=== PATIENT | female | born 1975 | race Two or more races ===

== ENCOUNTER 2016-11-15 14:12 | Emergency (ER) | payer OTHER ==
[~2016-11-15] VITALS: Ht 165.1 cm; Wt 117.9 kg
[~2016-11-15 14:12] MED LIST: ACET325T9 PO; ALBU0.63 IH; AMLO10TA2 PO; AMOX1TAB11 PO; ATOR20TA PO; ATOR20TA58 PO; AZIT250T6 PO; Albuterol Sulfate NEB; BENZ100C PO; BUPR1PAT TD; CELE200C PO; CEPH-264 PO; CETI10TA16 PO; CLON0.5T3 PO; CYCL10TA2 PO; DIPH25CA3 PO; DIPH25CA58 PO; DIPH25TA26 PO; DIVA250T PO; DIVA500T17 PO; DULA0.75 SQ; ERGO500012 PO; FLUO40CA2 PO; FLUT16SP NS; FLUT1DIS3 IH; FURO-69 PO; GABA-586 PO; GABA800T2 PO; HYDR-2666 PO; HYDR-971 PO; ILOP6TAB2 PO; INSU100I17 SQ; INSU100V13 SQ; INSU100V5 IJ; IPRA15SP IH; IPRA4AER IH; Insulin Detemir SQ; KETO15CR TP; LANS30CA PO; LISI20TA PO; METF10002 PO; METF500T4 PO; METH750T2 PO; METO-269 PO; MONT10TA9 PO; MORP15TA3 PO; NYST1000 PO; OXYC-323 PO; OXYC15TA PO; OXYC5CAP3 PO; OXYC5TAB PO; POLY119P4 PO; POLY17PO3 PO; POLY255P PO; POTA20TA4 PO; PRED50TA PO; PROAIR HFA8.5 GM IH; PROAIR HFA8.5 GM INH; QUET100T PO; QUET300T PO; QUET300T6 PO; QUIN1TAB6 PO; RANI300C PO; RANI300T PO; SPIR50TA2 PO; Sulfamethoxazole/Trimethoprim PO; TIOT18CA IH; TRIA10.8 NS; TRIF5TAB PO; hydrocodone; symbicort
[2016-11-15] MEDS ORDERED: ACETAMINOPHEN 500 MG TABLET PO ONE (15:45)
[2016-11-15] MEDS ORDERED: DIPHENHYDRAMINE 50 MG/ML VIAL IVP ONE (15:45)
[2016-11-15] MEDS ORDERED: IV NORMAL SALINE 1000ML BAG 1,000 ML IV ONE (15:45)
--- NOTE | 2016-11-15 15:46 | PHYS DOC ---
Past Medical History Past Medical History: Anxiety, Asthma, Bipolar, Cancer, COPD, Depression, Diabetes-Type II, GERD, High Cholesterol, Hypertension, [place], Seizure, Schizophrenia, Other Additional Past Medical Histor: breast CA, ovarian/uterine CA, bone CA, spinal CA TREATED W/CHEMO & RADIATI Past Surgical History: Appendectomy, Cholecystectomy, , Hysterectomy, Tonsillectomy, Other Additional Past Surgical Histo: Bx lumpectomy, esphogeal dilation,BILAT LUMPECTOMY,HERNIA Alcohol Use: None Drug Use: Marijuana Adult General Chief Complaint Chief Complaint: SEIZURE HPI HPI Patient is a 41 year old female with history of psychogenic pseudoseizures present complaint after for "seizures" today. Each lasted less than 5 minutes. The patient says that she has been out of her Depakote for approximately 2 weeks. She complains of localized headache after the seizures, but denies any visual disturbances, motor weakness, sensory loss, fever, neck stiffness or pain , chest pain, shortness of breath, cough, nausea, vomiting, diarrhea, abdominal pain, dysuria, or flank pain. She does complain of hematuria. Review of Systems Review of Systems Constitutional: Denies fever or chills Eyes: Denies change in visual acuity, redness, or eye pain HENT: Denies nasal congestion or sore throat Respiratory: Denies cough or shortness of breath Cardiovascular: Denies chest pain GI: Denies abdominal pain, nausea, vomiting, bloody stools or diarrhea : Denies dysuria or flank pain. Reports hematuria. Musculoskeletal: Denies back pain or joint pain Integument: Denies rash or skin lesions Neurologic: Reports headache and four "seizures" today. Denies focal weakness or sensory changes. Current Medications Current Medications Current Medications Medications (Trade) Dose Ordered Sig/[facility] Start Time Stop Time Status Last Admin Dose Admin Acetaminophen (Tylenol) 1,000 mg 1X ONCE 11/15/16 15:45 11/15/16 15:46 DC 11/15/16 15:59 1,000 MG Diphenhydramine HCl 25 mg 25 mg 1X ONCE 11/15/16 15:45 11/15/16 15:46 DC 11/15/16 16:00 25 MG Sodium Chloride (Iv Sodium Chloride 0.9% 1000ml Bag) 1,000 ml @ 1,000 mls/hr 1X ONCE 11/15/16 15:45 11/15/16 16:44 11/15/16 15:57 1,000 MLS/HR Allergies Allergies Allergies Coded Allergies Type Severity Reaction Last Updated Verified adhesive Allergy Intermediate rash 10/26/16 Yes adhesive tape Allergy Intermediate Rash 10/26/16 Yes morphine Adverse Reaction Intermediate Itching 10/26/16 Yes Physical Exam Physical Exam Constitutional: Well developed, well nourished, no acute distress, non-toxic appearance. HENT: Normocephalic, atraumatic, bilateral external ears normal, oropharynx moist, no oral exudates, nose normal. Eyes: PERRLA, EOMI, conjunctiva normal, no discharge. Neck: Normal range of motion, no tenderness, supple, no stridor. Cardiovascular:Heart rate regular rhythm, no murmur Lungs & Thorax: Bilateral breath sounds clear to auscultation Abdomen: Bowel sounds normal, soft, no tenderness, no masses, no pulsatile masses. Skin: Warm, dry, no erythema, no rash. Back: Inspection. Extremities: No tenderness, no cyanosis, no clubbing, ROM intact, no edema. Left lower extremity in short leg cast. Neurologic: Alert and oriented X 3, normal motor function, normal sensory function, no focal deficits noted. Psychologic: Affect normal, judgement normal, mood normal. Current Patient Data Vital Signs Vital Signs Date Time Temp Pulse Resp B/P Pulse Ox O2 Delivery O2 Flow Rate FiO2 11/15/16 16:02 79 16 106/66 100 Nasal Cannula 3 11/15/16 14:20 98.6 98.6 Lab Values Laboratory Tests Test 11/15/16 14:15 Urine Collection Type Unknown Urine Color Yellow Urine Clarity Clear Urine pH 5.5 Urine Specific [place] 1.010 Urine Protein Negativemg/dL (NEG-TRACE) Urine Glucose (UA) 500mg/dL (NEG) Urine Ketones (Stick) Negativemg/dL (NEG) Urine Blood Negative (NEG) Urine Nitrite Negative (NEG) Urine Bilirubin Negative (NEG) Urine Urobilinogen Dipstick 0.2mg/dL (0.2 mg/dL) Urine Leukocyte Esterase Negative (NEG) Urine RBC Occ/HPF (0-2) Urine WBC 0/HPF (0-4) Urine Squamous Epithelial Cells Few/LPF Urine Bacteria Moderate/HPF (0-FEW) Urine Mucus Slight/LPF Urine Test Negative (NEG) EKG EKG [] Radiology/Procedures Radiology/Procedures [] Course & Med Decision Making Course & Med Decision Making Pertinent Labs and Imaging studies reviewed. (See chart for details) Patient has well-documented history of psychogenic seizures. She has been out of her Depakote for 2 weeks. I will refill this for her. Urinalysis is negative and urine is negative. She has no focal neurologic deficits and no other significant acute complaints. I gave her IV Reglan, fluids, Benadryl, and Tylenol for her headache. I recommended follow-up with Dr. Dempsey in clinic as an outpatient. Return precautions were discussed and all questions were answered prior to discharge. Most recent dosage of Depakote that I can find in her chart is 250 mg ER tabs, 1250 mg twice daily. Dragon Disclaimer Dragon Disclaimer This electronic medical record was generated, in whole or in part, using a voice recognition dictation system. Departure Departure Impression: Primary Impression: Seizure-like activity Additional Impression: Headache Disposition: 01 HOME, SELF-CARE Condition: STABLE Referrals: DERIAN TRINIDAD MD (PCP) Patient Instructions: General Headache Without Cause, Nonepileptic Seizures Additional Instructions: And lots of fluids and take Tylenol as needed for your headache. Refill your prescription for Depakote and take this as directed. Follow-up in clinic with Dr. Dempsey as soon as you can. Scripts Divalproex Sodium (Depakote Er)250 Mg Tab.er.24h5 Tab PO BID #150 TAB Ref 1 Prov:GERMAN OVALLE MD 11/15/16 Problem Qualifiers Additional Impression: Headache Headache type: unspecified Headache chronicity pattern: acute headache Intractability: not intractable Qualified Code: R51 - Headache GERMAN OVALLE MD Nov 15, 2016 15:44
[2016-11-15 15:55] LABS: BILIRUBIN,URINE NEGATIVE (NEG); GLUCOSE,URINE 500 mg/dL (NEG); NITRITE,URINE NEGATIVE (NEG); PH,URINE 5.5; PROTEIN,URINE NEGATIVE (NEG-TRACE); UROBILINOGEN,URINE 0.2 mg/dL (0.2 mg/dL)
[2016-11-15 15:57] LABS: NEG OBC UR NEG; POS OBC UR POS
[2016-11-15 16:06] LABS: BACTERIA,URINE MODERATE /HPF (0-FEW); RBC,URINE OCC /HPF (0-2); SQUAMOUS EPITHELIAL CELL,UR FEW /LPF; WBC,URINE 0 /HPF (0-4)
[2016-11-15] MEDS ORDERED: DIVA250T PO (16:14)
[2016-11-15 16:46] VITALS: BP 86/53
== END 2016-11-15 16:55 | disposition home or self-care (01) ==
LOC: ER 14:12
DX: R56.9 Unspecified convulsions (principal); R51 Headache; R31.9 Hematuria, unspecified; E11.9 Type 2 diabetes mellitus without complications; E78.00 Pure hypercholesterolemia, unspecified; F20.9 Schizophrenia, unspecified; I10 Essential (primary) hypertension; I25.2 Old myocardial infarction; J44.9 Chronic obstructive pulmonary disease, unspecified; K21.9 Gastro-esophageal reflux disease without esophagitis; F31.9 Bipolar disorder, unspecified; F41.9 Anxiety disorder, unspecified; F12.10 Cannabis abuse, uncomplicated; Z88.5 Allergy status to narcotic agent; Z90.49 Acquired absence of other specified parts of digestive tract; Z90.710 Acquired absence of both cervix and uterus; Z88.8 Allergy status to other drugs, medicaments and biological substances
CPT/HCPCS: 81001; 81025; 87086; 96361; 96374; 99284; J1200; J7030

== ENCOUNTER 2016-11-17 14:50 | Emergency (ER) | payer OTHER ==
[2016-11-17] MEDS ORDERED: IV NORMAL SALINE 1000ML BAG 1,000 ML IV ONE (15:30)
--- NOTE | 2016-11-17 15:33 | PHYS DOC ---
Past Medical History Past Medical History: Anxiety, Asthma, Bipolar, Cancer, COPD, Depression, Diabetes-Type II, GERD, High Cholesterol, Hypertension, [place], Seizure, Schizophrenia, Other Additional Past Medical Histor: breast CA, ovarian/uterine CA, bone CA, spinal CA TREATED W/CHEMO & RADIATI Past Surgical History: Appendectomy, Cholecystectomy, , Hysterectomy, Tonsillectomy, Other Additional Past Surgical Histo: Bx lumpectomy, esphogeal dilation,BILAT LUMPECTOMY,HERNIA Alcohol Use: None Drug Use: Marijuana Adult General Chief Complaint Chief Complaint: NEURO SYMPTOMS/DEFICITS HPI HPI 40-year-old female with history of morbid obesity, diabetes type 2 and pseudoseizures, who states she awoke today with some nausea, vomiting and headache as well as some mild right-sided weakness. Patient does state she should be on seizure meds but has not been taking them. Patient states she tried taking several Excedrin migraine tablets but did not get any relief. She states she has approximately 7 out of 10 pain to her headache and feels weaker than usual. She states she last had a seizure episode on Monday. She denies hitting her head with that episode. Review of Systems Review of Systems Constitutional: Denies fever or chills [] Eyes: Denies change in visual acuity, redness, or eye pain [] HENT: Denies nasal congestion or sore throat [] Respiratory: Denies cough or shortness of breath [] Cardiovascular: No additional information not addressed in HPI [] GI: Denies abdominal pain, has nausea, has vomiting, denies bloody stools, denies diarrhea [] : Denies dysuria or hematuria [] Musculoskeletal: Denies back pain or joint pain [] Integument: Denies rash or skin lesions [] Neurologic: Has headache, has focal weakness or sensory changes [] Endocrine: Denies polyuria or polydipsia [] Current Medications Current Medications Current Medications Medications (Trade) Dose Ordered Sig/[facility] Start Time Stop Time Status Last Admin Dose Admin Ketorolac Tromethamine (Toradol) 30 mg 1X ONCE 11/17/16 15:45 11/17/16 15:46 DC 11/17/16 16:10 30 MG Metoclopramide HCl (Reglan) 10 mg 1X ONCE 11/17/16 15:45 11/17/16 15:46 DC 11/17/16 16:10 10 MG Sodium Chloride (Iv Sodium Chloride 0.9% 1000ml Bag) 1,000 ml @ 1,000 mls/hr 1X ONCE 11/17/16 15:30 11/17/16 16:29 DC 11/17/16 16:11 1,000 MLS/HR Allergies Allergies Allergies Coded Allergies Type Severity Reaction Last Updated Verified adhesive Allergy Intermediate rash 10/26/16 Yes adhesive tape Allergy Intermediate Rash 10/26/16 Yes morphine Adverse Reaction Intermediate Itching 10/26/16 Yes Physical Exam Physical Exam Constitutional: Well developed, well nourished, no acute distress, non-toxic appearance. [] HENT: Normocephalic, atraumatic, bilateral external ears normal, oropharynx moist, no oral exudates, nose normal. [] Eyes: PERRLA, EOMI, conjunctiva normal, no discharge. [] Neck: Normal range of motion, no tenderness, supple, no stridor. [] Cardiovascular:Heart rate regular rhythm, no murmur [] Lungs & Thorax: Bilateral breath sounds clear to auscultation [] Abdomen: Bowel sounds normal, soft, no tenderness, no masses, no pulsatile masses. [] Skin: Warm, dry, no erythema, no rash. [] Back: No tenderness, no CVA tenderness. [] Extremities: No tenderness, no cyanosis, no clubbing, ROM intact, no edema. [] Neurologic: Alert and oriented X 3, normal motor function, right sided sensory deficit to the right lower extremity, no focal deficits noted. [] Psychologic: Affect normal, judgement normal, mood normal. [] Current Patient Data Vital Signs Vital Signs Date Time Temp Pulse Resp B/P Pulse Ox O2 Delivery O2 Flow Rate FiO2 11/17/16 17:15 81 16 128/75 98 Room Air 11/17/16 15:02 98.4 98.4 Lab Values Laboratory Tests Test 11/17/16 15:20 11/17/16 15:35 Urine Collection Type Unknown Urine Color Yellow Urine Clarity Clear Urine pH 5.5 Urine Specific [place] 1.010 Urine Protein Negativemg/dL (NEG-TRACE) Urine Glucose (UA) 250mg/dL (NEG) Urine Ketones (Stick) Negativemg/dL (NEG) Urine Blood Negative (NEG) Urine Nitrite Negative (NEG) Urine Bilirubin Negative (NEG) Urine Urobilinogen Dipstick 0.2mg/dL (0.2 mg/dL) Urine Leukocyte Esterase Negative (NEG) Urine RBC Rare/HPF (0-2) Urine WBC 1-4/HPF (0-4) Urine Squamous Epithelial Cells Many/LPF Urine Bacteria Many/HPF (0-FEW) Urine Mucus Mod/LPF Urine Test Negative (NEG) White Blood Count 19.2x10^3/uL (4.0-11.0) H Red Blood Count 4.85x10^6/uL (3.50-5.40) Hemoglobin 13.4g/dL (12.0-15.5) Hematocrit 41.8% (36.0-47.0) Mean Corpuscular Volume 86fL (79-100) Mean Corpuscular Hemoglobin 28pg (25-35) Mean Corpuscular Hemoglobin Concent 32g/dL (31-37) Red Cell Distribution Width 17.8% (11.5-14.5) H Platelet Count 363x10^3/uL (140-400) Neutrophils (%) (Auto) 71% (31-73) Lymphocytes (%) (Auto) 19% (24-48) L Monocytes (%) (Auto) 6% (0-9) Eosinophils (%) (Auto) 3% (0-3) Basophils (%) (Auto) 0% (0-3) Neutrophils # (Auto) 13.6x10^3uL (1.8-7.7) H Lymphocytes # (Auto) 3.7x10^3/uL (1.0-4.8) Monocytes # (Auto) 1.2x10^3/uL (0.0-1.1) H Eosinophils # (Auto) 0.7x10^3/uL (0.0-0.7) Basophils # (Auto) 0.1x10^3/uL (0.0-0.2) Segmented Neutrophils % 66% (35-66) Lymphocytes % 29% (24-48) Monocytes % 3% (0-10) Eosinophils % 2% (0-5) Platelet Estimate Adequate (ADEQUATE) Anisocytosis Slight Sodium Level 139mmol/L (136-145) Potassium Level 4.5mmol/L (3.5-5.1) Chloride Level 103mmol/L (98-107) Carbon Dioxide Level 27mmol/L (21-32) Anion Gap 9 (6-14) Blood Urea Nitrogen 25mg/dL (7-20) H Creatinine 1.5mg/dL (0.6-1.0) H Estimated GFR (Cockcroft-Gault) 37.9 Glucose Level 89mg/dL (70-99) Calcium Level 9.6mg/dL (8.5-10.1) Laboratory Tests 11/17/16 15:35 Laboratory Tests 11/17/16 15:35 EKG EKG EKG as interpreted by me reveals a sinus rhythm with a leftward axis. There is a approximate rate of 87 bpm. Intervals are normal. There are no acute ischemic findings. Radiology/Procedures Radiology/Procedures CT of the head without contrast demonstrates the following: Indication right-sided tingling and headache. Noncontrast images of the head were obtained and are compared to an examination 09/28/2016. The calvarium appears unremarkable. The visualized paranasal sinuses appear unremarkable. There is no subdural or epidural hematoma. No mass or midline shift is seen. No hemorrhage is apparent. Acute intracranial finding is not seen. Course & Med Decision Making Course & Med Decision Making Pertinent Labs and Imaging studies reviewed. (See chart for details) 41-year-old female with subjective weakness and migraine type headache that will receive IV and migraine cocktail as well as laboratory workup including a head CT. After reviewing her chart, it does not appear that she has an actual seizure disorder and apparently has been worked up for her seizures in the past. She does states she's supposed to be on seizure medications but is not currently taking them. Upon my reassessment, the patient is resting quietly in the room in no signs of distress after IV migraine cocktail. She does have a slightly elevated white count of 19 but no other specific findings on laboratory workup. This is a nonspecific finding. Her urine does not show any signs of infection. CT of her head was also negative. I counseled the patient that she is likely having a severe migraine episode and that I will be providing her nausea and pain meds to go home with and that she is to follow closely with her primary care doctor next several days for symptom resolution and to return to the ER if her headache should worsen in any way or if she develops any worsening of her symptoms. She is very agreeable with this plan will be discharged feeling much improved. Mirtha Disclaimer Mirtha Disclaimer This electronic medical record was generated, in whole or in part, using a voice recognition dictation system. Departure Departure Impression: Primary Impression: Migraine Additional Impression: Nausea Disposition: 01 HOME, SELF-CARE Condition: IMPROVED Referrals: DERIAN TRINIDAD MD (PCP) Patient Instructions: Migraine Headache, [id number] Additional Instructions: Please take your pain medication as needed for your headache. Remain in a quiet dark room for the next 24 hours and drink plenty of fluids. Follow up with Dr. Trinidad as discussed in the next 1-2 days. Return to the ER if you develop any worsening of your symptoms. Scripts Ondansetron Hcl (Zofran)4 Mg Tablet4 Mg PO BID PRN NAUSEA/VOMITING #10 TAB Prov:SANTA BARBOSA DO 11/17/16 Hydrocodone/Apap 5-325 ([place] 5-325 Tablet)1 Each Tablet1 Tab PO PRN Q6HRS PRN PAIN #10 TAB Prov:SANTA BARBOSA DO 11/17/16 Problem Qualifiers SANTA BARBOSA DO Nov 17, 2016 15:33
--- NOTE | 2016-11-17 15:35 | EKG ---
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
[2016-11-17] MEDS ORDERED: METOCLOPRAMIDE HCL 10 MG/2 ML VIAL. IV ONE (15:45)
[2016-11-17] MEDS ORDERED: KETOROLAC TROMETHAMINE 30 MG/ML SYRINGE. IV ONE (15:45)
[2016-11-17 15:52] LABS: BILIRUBIN,URINE NEGATIVE (NEG); GLUCOSE,URINE 250 mg/dL (NEG); NITRITE,URINE NEGATIVE (NEG); PH,URINE 5.5; PROTEIN,URINE NEGATIVE (NEG-TRACE); UROBILINOGEN,URINE 0.2 mg/dL (0.2 mg/dL)
[2016-11-17 15:54] LABS: BASO # 0.1 x10^3/uL (0.0-0.2); BASO % 0 % (0-3); EOS % 3 % (0-3); HEMATOCRIT 41.8 % (36.0-47.0); HEMOGLOBIN 13.4 g/dL (12.0-15.5); LYMPH # 3.7 x10^3/uL (1.0-4.8); LYMPH % 19 % (24-48); MEAN CORPUSCULAR HEMOGLOBIN 28 pg (25-35); MEAN CORPUSCULAR HGB CONC 32 g/dL (31-37); MEAN CORPUSCULAR VOLUME 86 fL (79-100); MONO % 6 % (0-9); NEUT % 71 % (31-73); PLATELET COUNT 363 x10^3/uL (140-400); RED BLOOD COUNT 4.85 x10^6/uL (3.50-5.40); RED CELL DISTRIBUTION WIDTH 17.8 % (11.5-14.5); WHITE BLOOD COUNT 19.2 x10^3/uL (4.0-11.0)
[2016-11-17 15:55] LABS: NEG OBC UR NEG; POS OBC UR POS
[2016-11-17 16:01] LABS: BACTERIA,URINE MANY /HPF (0-FEW); RBC,URINE RARE /HPF (0-2); SQUAMOUS EPITHELIAL CELL,UR MANY /LPF
[2016-11-17 16:03] LABS: CALCIUM 9.6 mg/dL (8.5-10.1); CREATININE 1.5 mg/dL (0.6-1.0); GFR 37.9; POTASSIUM 4.5 mmol/L (3.5-5.1)
--- NOTE | 2016-11-17 16:08 | RAD ---
Indication right-sided tingling and headache. Noncontrast images of the head were obtained and are compared to an examination 09/28/2016. The calvarium appears unremarkable. The visualized paranasal sinuses appear unremarkable. There is no subdural or epidural hematoma. No mass or midline shift is seen. No hemorrhage is apparent. Acute intracranial finding is not seen. IMPRESSION: No acute intracranial abnormality is seen PQRS Compliance Statement: One or more of the following individualized dose reduction techniques were utilized for this examination: 1. Automated exposure control 2. Adjustment of the mA and/or kV according to patient size 3. Use of iterative reconstruction technique
[2016-11-17 16:12] LABS: % EOS 2 % (0-5)
[2016-11-17 16:14] LABS: ANISOCYTOSIS SLIGHT; PLT ESTIMATE ADEQUATE (ADEQUATE)
[2016-11-17] MEDS ORDERED: ONDA4TAB7 PO (17:09)
[2016-11-17] MEDS ORDERED: HYDR-971 PO (17:09)
[2016-11-17 17:15] VITALS: BP 128/75
== END 2016-11-17 17:20 | disposition home or self-care (01) ==
LOC: ER 14:50
DX: G43.909 Migraine, unspecified, not intractable, without status migrainosus (principal); E66.01 Morbid (severe) obesity due to excess calories; E11.9 Type 2 diabetes mellitus without complications; F41.9 Anxiety disorder, unspecified; J45.909 Unspecified asthma, uncomplicated; F31.9 Bipolar disorder, unspecified; J44.9 Chronic obstructive pulmonary disease, unspecified; K21.9 Gastro-esophageal reflux disease without esophagitis; E78.00 Pure hypercholesterolemia, unspecified; I25.2 Old myocardial infarction; I10 Essential (primary) hypertension; F20.9 Schizophrenia, unspecified; F12.10 Cannabis abuse, uncomplicated; Z91.048 Other nonmedicinal substance allergy status; Z88.5 Allergy status to narcotic agent; Z79.899 Other long term (current) drug therapy
CPT/HCPCS: 36415; 70450; 80048; 81001; 81025; 85007; 85027; 87086; 93005; 96361; 96374; 96375; 99285; J1885; J2765; J7030

== ENCOUNTER → 2016-12-09 | Day surgery (SDC) | payer OTHER ==
[~2016-12-09] MED LIST changes: +FENTANYL PF 100 MCG/2 ML VIAL. IV PRN; +IV RINGERS,LACTATED 1000ML 1,000 ML IV SCH; +LIDOCAINE 1% 1 ML SYRINGE. ID PRN; +LIDOCAINE 2% PF Vial for OR 5 ML VIAL. ONE; +ONDA4TAB7 PO; +ONDANSETRON PF 4 MG/2 ML VIAL. IV PRN; +PROCHLORPERAZINE 10 MG/2 ML VIAL. IV PRN; +PROPOFOL 20 ML IV ONE
[2016-12-09 09:35] VITALS: BP 127/93
--- NOTE | 2016-12-10 20:20 | CONS ---
DATE OF CONSULTATION: 12/09/2016 HISTORY: This is a 41-year-old female with past medical history significant for type 2 diabetes mellitus, COPD, breast cancer, hypertension, colonic polyps, gastric ulcers, is seen for surveillance of her gastric ulcer as well as repeat dilatation of her Schatzki's ring for dysphagia. She has been on Prilosec and Zantac. Her NSAIDs have been stopped, stomach is feeling better. She is otherwise without additional complaints. PAST MEDICAL HISTORY: Significant for breast cancer, COPD, sleep apnea, dysphagia, hypertension, colon polyps, hyperlipidemia, status post ID, pseudoseizures. ALLERGIES: MORPHINE. MEDICATIONS: Please review the database as she has over 20. FAMILY AND SOCIAL HISTORY: She does not drink or smoke at this time. Family history is significant for diabetes, breast cancer, hypertension. REVIEW OF SYSTEMS: Per records. PHYSICAL EXAMINATION: GENERAL: Reveals a well-nourished, well-developed female. VITAL SIGNS: Temperature is 97, pulse 111, respirations 20. HEENT: Normocephalic and atraumatic head. Pupils and extraocular muscles not tested. Sclerae anicteric. NECK: Supple. LUNGS: Clear. CARDIOVASCULAR: Reveals S1, S2 without S3, S4 or appreciable murmur. ABDOMEN: Soft abdomen, normal bowel sounds, without appreciable hepatosplenomegaly. EXTREMITIES: Reveals no cyanosis, clubbing or edema. IMPRESSION: 1. Gastric ulcer. Surveillance exam was recommended to confirm healing, 2-4% gastric ulcers are early malignancies. 2. Dysphagia, most likely it is multifactorial in etiology with dysmotility, possible connective tissue disorder such as lupus which runs in her family as well with a Schatzki's ring in the differential. Recommend the patient have repeat dilatation. CC: Medical records. SANTA FAULKNER MD DR: JOSE/slade JOB#: [id number] / [id number] SANTA Obrien MD
== END ==
LOC: SURG 08:28
PROVIDERS: ATTEND Internal Medicine Gastroenterology
DX: K22.2 Esophageal obstruction (principal); K29.50 Unspecified chronic gastritis without bleeding; J44.9 Chronic obstructive pulmonary disease, unspecified; Z85.3 Personal history of malignant neoplasm of breast; I10 Essential (primary) hypertension; E78.5 Hyperlipidemia, unspecified; E78.00 Pure hypercholesterolemia, unspecified; E66.9 Obesity, unspecified; M19.90 Unspecified osteoarthritis, unspecified site; Z90.710 Acquired absence of both cervix and uterus
CPT/HCPCS: 36415; 43235; 43450; 82947; J2704

== ENCOUNTER → 2017-01-20 | Emergency (ER) | payer OTHER ==
[~2017-01-20] MED LIST changes: +CONTRAST GIVEN MC PRN; +FAMOTIDINE 20 MG/2 ML VIAL IVP ONE; +FENTANYL PF 100 MCG/2 ML VIAL. IV ONE; -FENTANYL PF 100 MCG/2 ML VIAL. IV PRN; +IOHEXOL 300 MG/ML 75 ML VIAL IV ONE; +IV NORMAL SALINE 1000ML BAG 1,000 ML IV ONE; -IV RINGERS,LACTATED 1000ML 1,000 ML IV SCH; -LIDOCAINE 1% 1 ML SYRINGE. ID PRN; -LIDOCAINE 2% PF Vial for OR 5 ML VIAL. ONE; +ONDANSETRON PF 4 MG/2 ML VIAL. IV ONE; -ONDANSETRON PF 4 MG/2 ML VIAL. IV PRN; -PROCHLORPERAZINE 10 MG/2 ML VIAL. IV PRN; -PROPOFOL 20 ML IV ONE
[2017-01-20 16:20] VITALS: BP 109/71
[2017-01-20 17:17] LABS: BASO # 0.2 x10^3/uL (0.0-0.2); BASO % 1 % (0-3); EOS % 8 % (0-3); HEMATOCRIT 41.6 % (36.0-47.0); HEMOGLOBIN 13.7 g/dL (12.0-15.5); LYMPH # 3.9 x10^3/uL (1.0-4.8); LYMPH % 19 % (24-48); MEAN CORPUSCULAR HEMOGLOBIN 29 pg (25-35); MEAN CORPUSCULAR HGB CONC 33 g/dL (31-37); MEAN CORPUSCULAR VOLUME 87 fL (79-100); MONO % 6 % (0-9); NEUT % 67 % (31-73); PLATELET COUNT 367 x10^3/uL (140-400); RED BLOOD COUNT 4.79 x10^6/uL (3.50-5.40); RED CELL DISTRIBUTION WIDTH 13.8 % (11.5-14.5); WHITE BLOOD COUNT 20.8 x10^3/uL (4.0-11.0)
[2017-01-20 17:36] LABS: BILIRUBIN,URINE NEGATIVE (NEG); GLUCOSE,URINE >=1000 mg/dL (NEG); NITRITE,URINE NEGATIVE (NEG); PROTEIN,URINE NEGATIVE (NEG-TRACE); UROBILINOGEN,URINE 0.2 mg/dL (0.2 mg/dL)
[2017-01-20 17:46] LABS: RBC,URINE 0 /HPF (0-2); WBC,URINE OCC /HPF (0-4)
[2017-01-20 17:47] LABS: BACTERIA,URINE MANY /HPF (0-FEW); SQUAMOUS EPITHELIAL CELL,UR MANY /LPF
[2017-01-20 18:01] LABS: CALCIUM 9.4 mg/dL (8.5-10.1); CREATININE 1.3 mg/dL (0.6-1.0); GFR 44.7; POTASSIUM 4.7 mmol/L (3.5-5.1)
[2017-01-20 18:08] LABS: ALBUMIN 3.7 g/dL (3.4-5.0); ALBUMIN/GLOBULIN RATIO 1.1 (1.0-1.7); TOTAL BILIRUBIN 0.2 mg/dL (0.2-1.0); TOTAL PROTEIN 7.2 g/dL (6.4-8.2)
[2017-01-20 18:15] LABS: % EOS 4 % (0-5)
[2017-01-20 18:17] LABS: PLT ESTIMATE ADEQUATE (ADEQUATE)
--- NOTE | 2017-01-20 19:56 | PHYS DOC ---
Past Medical History Past Medical History: Anxiety, Asthma, Bipolar, Cancer, COPD, Depression, Diabetes-Type II, GERD, High Cholesterol, Hypertension, [place], Seizure, Schizophrenia, Other Additional Past Medical Histor: breast CA, ovarian/uterine CA, bone CA, spinal CA TREATED W/CHEMO & RADIATI Past Surgical History: Appendectomy, Cholecystectomy, , Hysterectomy, Tonsillectomy, Other Additional Past Surgical Histo: Bx lumpectomy, esphogeal dilation,BILAT LUMPECTOMY,HERNIA Alcohol Use: None Drug Use: Marijuana Adult General Chief Complaint Chief Complaint: ABDOMINAL PAIN HPI HPI Patient is a 41 year old female with a history of asthma, anemia, bipolar, diabetes type 2, depression, breast cancer, stomach ulcer, abdominal surgery, who presents today complaining of moderate right upper and lower abdominal pain that began this morning with nausea and vomiting. Patient denies any urgency frequency dysuria. Patient denies any fever. Patient is requesting pain medicine as soon as possible. Review of Systems Review of Systems Constitutional: See history of present illness Eyes: Denies change in visual acuity, redness, or eye pain [] HENT: Denies nasal congestion or sore throat [] Respiratory: Denies cough or shortness of breath [] Cardiovascular: No additional information not addressed in HPI [] GI: Right sided abdominal pain with nausea and vomiting : See history of present illness Musculoskeletal: Denies back pain or joint pain [] Integument: Denies rash or skin lesions [] Neurologic: Denies headache, focal weakness or sensory changes [] Endocrine: Denies polyuria or polydipsia [] Current Medications Current Medications Current Medications Medications (Trade) Dose Ordered Sig/[facility] Start Time Stop Time Status Last Admin Dose Admin Famotidine (Pepcid) 20 mg 1X ONCE 01/20/17 17:15 01/20/17 17:16 DC 01/20/17 17:21 20 MG Fentanyl Citrate (Fentanyl 2ml Vial) 50 mcg 1X ONCE 01/20/17 17:15 01/20/17 17:16 DC 01/20/17 17:20 50 MCG Info 1 each 1 each PRN DAILY PRN 01/20/17 18:00 01/22/17 17:59 Iohexol (Omnipaque 300 Mg/ml) 75 ml 1X ONCE 01/20/17 18:00 01/20/17 18:01 DC Ondansetron HCl (Zofran) 4 mg 1X ONCE 01/20/17 17:15 01/20/17 17:16 DC 01/20/17 17:20 4 MG Sodium Chloride (Iv Sodium Chloride 0.9% 1000ml Bag) 1,000 ml @ 1,000 mls/hr 1X ONCE 01/20/17 18:30 01/20/17 19:29 DC Allergies Allergies Allergies Coded Allergies Type Severity Reaction Last Updated Verified adhesive Allergy Intermediate rash 12/09/16 Yes adhesive tape Allergy Intermediate Rash 12/09/16 Yes morphine Adverse Reaction Intermediate Itching 12/09/16 Yes Physical Exam Physical Exam Constitutional: Well developed, well nourished, no acute distress, non-toxic appearance. [] HENT: Normocephalic, atraumatic, bilateral external ears normal, oropharynx moist, no oral exudates, nose normal. [] Eyes: PERRLA, EOMI, conjunctiva normal, no discharge. [] Neck: Normal range of motion, no tenderness, supple, no stridor. [] Cardiovascular:Heart rate regular rhythm, no murmur [] Lungs & Thorax: Bilateral breath sounds clear to auscultation [] Abdomen: Rounded abdomen, old healed surgical incision noted midline upper abdomen. Bowel sounds normal, soft, no masses, no pulsatile masses. Patient would not let me push on her stomach, she states is painful. She is refusing most of the exam stating it's painful. Skin: Warm, dry, no erythema, no rash. [] Back: No tenderness, no CVA tenderness. [] Extremities: No tenderness, no cyanosis, no clubbing, ROM intact, no edema. [] Neurologic: Alert and oriented X 3, normal motor function, normal sensory function, no focal deficits noted. [] Psychologic: Affect normal, judgement normal, mood normal. [] Current Patient Data Vital Signs Vital Signs Date Time Temp Pulse Resp B/P Pulse Ox O2 Delivery O2 Flow Rate FiO2 01/20/17 17:20 20 95 Room Air 01/20/17 16:20 98.4 96 109/71 98.4 Lab Values Laboratory Tests Test 01/20/17 17:00 01/20/17 17:25 01/20/17 17:40 White Blood Count 20.8x10^3/uL (4.0-11.0) H Red Blood Count 4.79x10^6/uL (3.50-5.40) Hemoglobin 13.7g/dL (12.0-15.5) Hematocrit 41.6% (36.0-47.0) Mean Corpuscular Volume 87fL (79-100) Mean Corpuscular Hemoglobin 29pg (25-35) Mean Corpuscular Hemoglobin Concent 33g/dL (31-37) Red Cell Distribution Width 13.8% (11.5-14.5) Platelet Count 367x10^3/uL (140-400) Neutrophils (%) (Auto) 67% (31-73) Lymphocytes (%) (Auto) 19% (24-48) L Monocytes (%) (Auto) 6% (0-9) Eosinophils (%) (Auto) 8% (0-3) H Basophils (%) (Auto) 1% (0-3) Neutrophils # (Auto) 14.0x10^3uL (1.8-7.7) H Lymphocytes # (Auto) 3.9x10^3/uL (1.0-4.8) Monocytes # (Auto) 1.2x10^3/uL (0.0-1.1) H Eosinophils # (Auto) 1.6x10^3/uL (0.0-0.7) H Basophils # (Auto) 0.2x10^3/uL (0.0-0.2) Segmented Neutrophils % 66% (35-66) Band Neutrophils % 4% (0-9) Lymphocytes % 25% (24-48) Monocytes % 1% (0-10) Eosinophils % 4% (0-5) Platelet Estimate Adequate (ADEQUATE) Urine Collection Type Unknown Urine Color Yellow Urine Clarity Clear Urine pH 6.0 Urine Specific Leary 1.015 Urine Protein Negativemg/dL (NEG-TRACE) Urine Glucose (UA) >=1000mg/dL (NEG) Urine Ketones (Stick) Negativemg/dL (NEG) Urine Blood Negative (NEG) Urine Nitrite Negative (NEG) Urine Bilirubin Negative (NEG) Urine Urobilinogen Dipstick 0.2mg/dL (0.2 mg/dL) Urine Leukocyte Esterase Negative (NEG) Urine RBC 0/HPF (0-2) Urine WBC Occ/HPF (0-4) Urine Squamous Epithelial Cells Many/LPF Urine Bacteria Many/HPF (0-FEW) Sodium Level 135mmol/L (136-145) L Potassium Level 4.7mmol/L (3.5-5.1) Chloride Level 102mmol/L (98-107) Carbon Dioxide Level 23mmol/L (21-32) Anion Gap 10 (6-14) Blood Urea Nitrogen 16mg/dL (7-20) Creatinine 1.3mg/dL (0.6-1.0) H Estimated GFR (Cockcroft-Gault) 44.7 BUN/Creatinine Ratio 12 (6-20) Glucose Level 104mg/dL (70-99) H Calcium Level 9.4mg/dL (8.5-10.1) Total Bilirubin 0.2mg/dL (0.2-1.0) Aspartate Amino Transferase (AST) 9U/L (15-37) L Alanine Aminotransferase (ALT) 21U/L (14-59) Alkaline Phosphatase 90U/L (46-116) Total Protein 7.2g/dL (6.4-8.2) Albumin 3.7g/dL (3.4-5.0) Albumin/Globulin Ratio 1.1 (1.0-1.7) Lipase 137U/L (73-393) Laboratory Tests 01/20/17 17:00 Laboratory Tests 01/20/17 17:40 EKG EKG [] Radiology/Procedures Radiology/Procedures [] Course & Med Decision Making Course & Med Decision Making Pertinent Labs and Imaging studies reviewed. (See chart for details) Patient is in the ED complaining of right upper and lower abdominal pain with nausea vomiting. We ordered labs and CT of the abdomen and pelvic. The nurses called me and told me patient signed out AMA after receiving pain medicine. Dragon Disclaimer Dragon Disclaimer This electronic medical record was generated, in whole or in part, using a voice recognition dictation system. Departure Departure Impression: Primary Impression: Left against medical advice Additional Impression: Abdominal pain Disposition: 07 AGAINST MEDICAL ADVICE Condition: STABLE Problem Qualifiers Additional Impression: Abdominal pain Abdominal location: right lower quadrant Qualified Code: R10.31 - Right lower quadrant pain CADY HERNANDEZ SOCORRO Jan 20, 2017 19:56
== END ==
LOC: ER 15:48
DX: R10.31 Right lower quadrant pain (principal); R11.2 Nausea with vomiting, unspecified; R10.11 Right upper quadrant pain; F41.9 Anxiety disorder, unspecified; J45.909 Unspecified asthma, uncomplicated; F31.9 Bipolar disorder, unspecified; J44.9 Chronic obstructive pulmonary disease, unspecified; E11.9 Type 2 diabetes mellitus without complications; K21.9 Gastro-esophageal reflux disease without esophagitis; E78.00 Pure hypercholesterolemia, unspecified; I10 Essential (primary) hypertension; I25.2 Old myocardial infarction; F12.10 Cannabis abuse, uncomplicated; F20.9 Schizophrenia, unspecified; Z90.49 Acquired absence of other specified parts of digestive tract; Z90.710 Acquired absence of both cervix and uterus; Z91.048 Other nonmedicinal substance allergy status; Z88.5 Allergy status to narcotic agent
CPT/HCPCS: 36415; 80053; 81001; 83690; 85007; 85027; 87086; 96374; 96375; 99284; J2405; J3010; S0028

== ENCOUNTER 2017-02-02 12:18 | Emergency (ER) | payer OTHER ==
[~2017-02-02] VITALS: Ht 162.6 cm; Wt 121.6 kg
[~2017-02-02 12:18] MED LIST changes: -CONTRAST GIVEN MC PRN; -FAMOTIDINE 20 MG/2 ML VIAL IVP ONE; -FENTANYL PF 100 MCG/2 ML VIAL. IV ONE; -IOHEXOL 300 MG/ML 75 ML VIAL IV ONE; -IV NORMAL SALINE 1000ML BAG 1,000 ML IV ONE; -ONDANSETRON PF 4 MG/2 ML VIAL. IV ONE
[2017-02-02 13:20] VITALS: BP 144/77
[2017-02-02] MEDS ORDERED: SULF1TAB24 PO (13:44)
[2017-02-02] MEDS ORDERED: CEPH500C PO (13:44)
[2017-02-02] MEDS ORDERED: HYDR-971 PO (13:44)
--- NOTE | 2017-02-02 13:44 | PHYS DOC ---
Past Medical History Past Medical History: Anxiety, Asthma, Bipolar, Cancer, COPD, Depression, Diabetes-Type II, GERD, High Cholesterol, Hypertension, [place], Seizure, Schizophrenia, Other Additional Past Medical Histor: breast CA, ovarian/uterine CA, bone CA, spinal CA TREATED W/CHEMO & RADIATI Past Surgical History: Appendectomy, Cholecystectomy, , Hysterectomy, Tonsillectomy, Other Additional Past Surgical Histo: Bx lumpectomy, esphogeal dilation,BILAT LUMPECTOMY,HERNIA Alcohol Use: None Drug Use: Marijuana Adult General Chief Complaint Chief Complaint: SKIN PROBLEM HPI HPI Patient is a 41 year old female presents emergency Department today with complaint of atraumatic left ear pain and swelling with redness that she woke up to this morning. Patient has symptoms that she was bitten or stung by some type of an insect. She denies any recent piercings or tattoos. She denies history of recurrent skin infections. She denies antibiotic use in the past 90 days. Review of Systems Review of Systems Constitutional: Denies fever or chills [] Eyes: Denies change in visual acuity, redness, or eye pain [] HENT: Denies nasal congestion or sore throat [] Respiratory: Denies cough or shortness of breath [] Cardiovascular: No additional information not addressed in HPI [] GI: Denies abdominal pain, nausea, vomiting, bloody stools or diarrhea [] : Denies dysuria or hematuria [] Musculoskeletal: Denies back pain or joint pain [] Integument: Denies rash or skin lesions [] Neurologic: Denies headache, focal weakness or sensory changes [] Endocrine: Denies polyuria or polydipsia [] Allergies Allergies Allergies Coded Allergies Type Severity Reaction Last Updated Verified adhesive Allergy Intermediate rash 12/09/16 Yes adhesive tape Allergy Intermediate Rash 12/09/16 Yes morphine Adverse Reaction Intermediate Itching 12/09/16 Yes Physical Exam Physical Exam Constitutional: Well developed, well nourished, no acute distress, non-toxic appearance. [] HENT: Normocephalic, atraumatic, oropharynx moist, no oral exudates, nose normal. Left ear lobe is inflamed and swollen. It is warm to the touch. There is no fluctuant pocket, purulent drainage or honey crusted lesions. Patient's ear canal is not occluded. There is no evidence of mastoiditis. Eyes: PERRLA, EOMI, conjunctiva normal, no discharge. [] Neck: Normal range of motion, no tenderness, supple, no stridor. [] Cardiovascular:Heart rate regular rhythm, no murmur [] Lungs & Thorax: Bilateral breath sounds clear to auscultation [] Abdomen: Bowel sounds normal, soft, no tenderness, no masses, no pulsatile masses. [] Skin: Warm, dry, no erythema, no rash. [] Back: No tenderness, no CVA tenderness. [] Extremities: No tenderness, no cyanosis, no clubbing, ROM intact, no edema. [] Neurologic: Alert and oriented X 3, normal motor function, normal sensory function, no focal deficits noted. [] Psychologic: Affect normal, judgement normal, mood normal. [] Current Patient Data Vital Signs Vital Signs Date Time Temp Pulse Resp B/P Pulse Ox O2 Delivery O2 Flow Rate FiO2 02/02/17 13:20 98.3 110 17 98 Room Air 98.3 EKG EKG [] Radiology/Procedures Radiology/Procedures [] Course & Med Decision Making Course & Med Decision Making Pertinent Labs and Imaging studies reviewed. (See chart for details) [] Dragon Disclaimer Dragon Disclaimer This electronic medical record was generated, in whole or in part, using a voice recognition dictation system. Departure Departure Impression: Primary Impression: Cellulitis Disposition: 01 HOME, SELF-CARE Condition: GOOD Referrals: DERIAN TRINIDAD MD (PCP) Patient Instructions: Cellulitis, [id number] Additional Instructions: 1. Take the medications as prescribed. 2. Review the discharge instructions provided for self-care and reasons to return to the emergency department. 3. Contact Dr. Trinidad office today to schedule follow-up appointment for reevaluation by Monday at the latest. Scripts Hydrocodone/Apap 5-325 ([place] 5-325 Tablet)1 Each Tablet1 Tab PO PRN Q6HRS PRN PAIN #10 TAB Ref 0 Prov:NILS LUNDBERG 02/02/17 Cephalexin 500 Mg Capsule2 Cap PO BID #28 CAP Prov:NILS LUNDBERG 02/02/17 Sulfamethoxazole/Trimethoprim (Bactrim Ds Tablet)1 Each Tablet1 Each PO BID cellulitis 10 Days Prov:NILS LUNDBERG 02/02/17 NILS LUNDBERG Feb 02, 2017 13:44
== END 2017-02-02 13:50 | disposition home or self-care (01) ==
LOC: ER 12:18
DX: H60.12 Cellulitis of left external ear (principal); F41.9 Anxiety disorder, unspecified; J45.909 Unspecified asthma, uncomplicated; F31.9 Bipolar disorder, unspecified; J44.9 Chronic obstructive pulmonary disease, unspecified; E11.9 Type 2 diabetes mellitus without complications; K21.9 Gastro-esophageal reflux disease without esophagitis; E78.00 Pure hypercholesterolemia, unspecified; I10 Essential (primary) hypertension; I25.2 Old myocardial infarction; F20.9 Schizophrenia, unspecified; Z91.048 Other nonmedicinal substance allergy status; Z88.5 Allergy status to narcotic agent
CPT/HCPCS: 99283

== ENCOUNTER → 2017-02-09 | Day surgery (SDC) | payer OTHER ==
[~2017-02-09] MED LIST changes: +CELE-20 PO; +CEPH500C PO; +CLIN300C86 PO; +IV RINGERS,LACTATED 1000ML 1,000 ML IV SCH; +LIDOCAINE 2% PF Vial for OR 5 ML VIAL. ONE; +PRAZ5CAP2 PO; +PROPOFOL 20 ML IV ONE; +QUET400T PO; +SULF1TAB24 PO; +TOPI100T90 PO; +TRAZ150T55 PO
[2017-02-09 14:25] VITALS: BP 133/77
--- NOTE | 2017-02-10 09:52 | HP ---
ADMIT DATE: 02/09/2017 REFERRING PHYSICIAN: Guero Mejia. HISTORY OF PRESENT ILLNESS: This is a 41-year-old female with past medical history is significant for multiple medical issues including hypertension, colonic polyps, hyperlipidemia, osteoarthrosis, palpitations, anxiety, depression, diabetes, history of gastric ulcers and recurrent dysphagia with possible presbyesophagus and/or uvulopalatal reflux, seen for recurrent dysphagia or previous dilatations done on 08/2016 was helpful until recently. No change in weight or appetite. No bleeding was noted. PAST MEDICAL HISTORY: Type 2 diabetes mellitus, tachycardia, closed head injury, seizures and COPD. ALLERGIES: ADHESIVE TAPE AND MORPHINE. MEDICATIONS: See the MAR. REVIEW OF SYSTEMS: Per records. PHYSICAL EXAMINATION: GENERAL: Reveals a well-nourished, well-developed female, who is alert and oriented in no acute distress. VITAL SIGNS: Temperature 98, pulse 130, respirations 20. HEENT: Normocephalic and atraumatic head. Pupils and extraocular movements not tested. Sclerae anicteric. NECK: Supple. LUNGS: Clear. CARDIOVASCULAR: Reveals an S1, S2 without S3, S4 or appreciable murmur. ABDOMEN: Soft abdomen, normal bowel sounds, without appreciable hepatosplenomegaly. Epigastric tenderness to deep palpation. EXTREMITIES: Reveals no cyanosis, clubbing or edema. IMPRESSION: Dysphagia, most likely is multifactorial presbyesophagus and/or oropharyngeal component contributing neurologic evaluation for her uvulopalatal reflux. RECOMMENDATION: Upper endoscopy with possible dilatation of presbyesophagus and Schatzki's ring is recommended. I would like to thank Dr. Mejia for allowing us to consult and participate in the patient's care. SANTA FAULKNER MD DR: JOSE/slade JOB#: [id number] / [id number]
== END | disposition home or self-care (01) ==
LOC: ENDOS 12:25
PROVIDERS: ATTEND Internal Medicine Gastroenterology
DX: K22.2 Esophageal obstruction (principal); K29.50 Unspecified chronic gastritis without bleeding; E78.00 Pure hypercholesterolemia, unspecified; I48.91 Unspecified atrial fibrillation; I10 Essential (primary) hypertension; J44.9 Chronic obstructive pulmonary disease, unspecified; J45.909 Unspecified asthma, uncomplicated; E66.9 Obesity, unspecified; E11.9 Type 2 diabetes mellitus without complications; F41.9 Anxiety disorder, unspecified; F32.9 Major depressive disorder, single episode, unspecified; M19.90 Unspecified osteoarthritis, unspecified site; Z90.710 Acquired absence of both cervix and uterus; Z90.49 Acquired absence of other specified parts of digestive tract; Z85.43 Personal history of malignant neoplasm of ovary
CPT/HCPCS: 43235; 43450; G0500; J2704

== ENCOUNTER 2017-02-12 09:24 | Inpatient (IN) | payer OTHER ==
[~2017-02-12] VITALS: Ht 165.1 cm; Wt 121.6 kg
[~2017-02-12 09:24] MED LIST changes: -CELE-20 PO; -CLIN300C86 PO; -IV RINGERS,LACTATED 1000ML 1,000 ML IV SCH; -LIDOCAINE 2% PF Vial for OR 5 ML VIAL. ONE; -PRAZ5CAP2 PO; -PROPOFOL 20 ML IV ONE; -QUET400T PO; -TOPI100T90 PO; -TRAZ150T55 PO
[2017-02-12 09:49] LABS: BASO % 1 % (0-3); EOS % 6 % (0-3); HEMATOCRIT 39.4 % (36.0-47.0); LYMPH % 32 % (24-48); MEAN CORPUSCULAR HEMOGLOBIN 28 pg (25-35); MEAN CORPUSCULAR HGB CONC 33 g/dL (31-37); MEAN CORPUSCULAR VOLUME 86 fL (79-100); MONO % 6 % (0-9); NEUT % 55 % (31-73); PLATELET COUNT 275 x10^3/uL (140-400); RED BLOOD COUNT 4.59 x10^6/uL (3.50-5.40); RED CELL DISTRIBUTION WIDTH 14.4 % (11.5-14.5); WHITE BLOOD COUNT 9.5 x10^3/uL (4.0-11.0)
--- NOTE | 2017-02-12 09:49 | ED.ADGEN ---
Past Medical History Past Medical History: Anxiety, Asthma, Bipolar, Cancer, COPD, Depression, Diabetes-Type II, GERD, High Cholesterol, Hypertension, [place], Seizure, Schizophrenia, Other Additional Past Medical Histor: breast CA, ovarian/uterine CA, bone CA, spinal CA TREATED W/CHEMO & RADIATI Past Surgical History: Appendectomy, Cholecystectomy, , Hysterectomy, Tonsillectomy, Other Additional Past Surgical Histo: Bx lumpectomy, esphogeal dilation,BILAT LUMPECTOMY,HERNIA Alcohol Use: None Drug Use: Marijuana Adult General Chief Complaint Chief Complaint: CHEST PAIN-CARDIAC NATURE HPI HPI Patient is a 41 year old woman, history of CAD status post [place] 2, no stents in place per her report, schizophrenia, obesity, hypertension, hyperlipidemia, CHF , who presents to the emergency department with a complaint of chest pain. Patient states that she was at home, when she began feeling nauseous around 7: 00 in the morning, states she was seated she had one episode of vomiting, then developed midsternal chest pain, which she states "feels like when I had my heart attack". Patient denies any shortness of breath, states the pain is currently a 7 out of 10, she did receive 325 aspirin en route to the ED, she also took 2 nitroglycerin at home without relief. Patient denies any recent travel or surgery, and history of DVT or PE, states that Dr. Lundberg is her district wire chief. She she also sees a "patient transition specialist", but is unable to provide any additional information. She denies any drugs, alcohol or cigarettes, any injuries, any other complaints at this time. Denies any nausea currently, denies abdominal pain, any diarrhea, any fevers or chills, any respiratory complaints. Review of Systems Review of Systems Constitutional: Denies fever or chills. [] Eyes: Denies change in visual acuity. [] HENT: Denies nasal congestion or sore throat. [] Respiratory: Denies cough or shortness of breath. [] Cardiovascular: Midsternal chest pain, without radiation, no edema. GI: Denies abdominal pain, nausea, vomiting, bloody stools or diarrhea. [] : Denies dysuria. [] Musculoskeletal: Denies back pain or joint pain. [] Integument: Denies rash. [] Neurologic: Denies headache, focal weakness or sensory changes. [] Endocrine: Denies polyuria or polydipsia. [] Lymphatic: Denies swollen glands. [] Psychiatric: Denies depression or anxiety. [] Current Medications Current Medications Current Medications Medications (Trade) Dose Ordered Sig/[facility] Start Time Stop Time Status Last Admin Dose Admin Fentanyl Citrate (Fentanyl 2ml Vial) 25 mcg PRN Q15MIN PRN 02/12/17 09:30 02/13/17 09:29 02/12/17 11:40 25 MCG Nitroglycerin (Nitrostat) 0.4 mg PRN Q5MIN PRN 02/12/17 09:30 02/13/17 09:29 02/12/17 10:11 0.4 MG Allergies Allergies Allergies Coded Allergies Type Severity Reaction Last Updated Verified adhesive Allergy Intermediate rash 02/09/17 Yes adhesive tape Allergy Intermediate Rash 02/09/17 Yes morphine Adverse Reaction Intermediate Itching 02/09/17 Yes Physical Exam Physical Exam Constitutional: Well developed, obese, no acute distress, non-toxic appearance. [] HENT: Normocephalic, atraumatic, bilateral external ears normal, oropharynx moist, no oral exudates, nose normal. [] Eyes: PERRLA, EOMI, conjunctiva normal, no discharge. [] Neck: Normal range of motion, no tenderness, supple, no stridor. [] Cardiovascular:Heart rate regular rhythm, no murmur, S1, S2, rubs or gallops. Patient with reproducible mid sternal chest pain. [] Lungs & Thorax: Bilateral breath sounds clear to auscultation, no wheezing, rhonchi, rales. No chest or crepitus or tenderness. [] Abdomen: Bowel sounds normal, obese, well-healed midline surgical incision, no rebound, rigidity, no guarding, soft, no tenderness, no masses, no pulsatile masses. [] Skin: Warm, dry, no erythema, no rash. [] Back: No tenderness, no CVA tenderness. [] Extremities: No tenderness, no cyanosis, no clubbing, ROM intact, no edema. Negative Homans sign. [] Neurologic: Alert and oriented X 3, normal motor function, normal sensory function, no focal deficits noted. [] Psychologic: Affect normal, judgement normal, mood normal. [] Current Patient Data Vital Signs Vital Signs Date Time Temp Pulse Resp B/P Pulse Ox O2 Delivery O2 Flow Rate FiO2 02/12/17 11:40 10 96 02/12/17 10:11 101 96/61 02/12/17 09:24 98.2 Room Air 98.2 Lab Values Laboratory Tests Test 02/12/17 09:32 02/12/17 09:49 02/12/17 09:52 02/12/17 10:58 White Blood Count 9.5x10^3/uL (4.0-11.0) Red Blood Count 4.59x10^6/uL (3.50-5.40) Hemoglobin 13.0g/dL (12.0-15.5) Hematocrit 39.4% (36.0-47.0) Mean Corpuscular Volume 86fL (79-100) Mean Corpuscular Hemoglobin 28pg (25-35) Mean Corpuscular Hemoglobin Concent 33g/dL (31-37) Red Cell Distribution Width 14.4% (11.5-14.5) Platelet Count 275x10^3/uL (140-400) Neutrophils (%) (Auto) 55% (31-73) Lymphocytes (%) (Auto) 32% (24-48) Monocytes (%) (Auto) 6% (0-9) Eosinophils (%) (Auto) 6% (0-3) H Basophils (%) (Auto) 1% (0-3) Neutrophils # (Auto) 5.3x10^3uL (1.8-7.7) Lymphocytes # (Auto) 3.0x10^3/uL (1.0-4.8) Monocytes # (Auto) 0.6x10^3/uL (0.0-1.1) Eosinophils # (Auto) 0.6x10^3/uL (0.0-0.7) Basophils # (Auto) 0.0x10^3/uL (0.0-0.2) Prothrombin Time 12.2SEC (11.7-14.0) Prothrombin Time INR 1.0 (0.8-1.1) PTT 28SEC (24-38) Sodium Level 142mmol/L (136-145) Potassium Level 3.7mmol/L (3.5-5.1) Chloride Level 103mmol/L (98-107) Carbon Dioxide Level 25mmol/L (21-32) Anion Gap 14 (6-14) 19mmol/L (6-14) H Blood Urea Nitrogen 11mg/dL (7-20) Creatinine 1.0mg/dL (0.6-1.0) Estimated GFR (Cockcroft-Gault) 60.5 Glucose Level 164mg/dL (70-99) H 160mg/dL (70-99) H Calcium Level 8.8mg/dL (8.5-10.1) Total Bilirubin 0.1mg/dL (0.2-1.0) L Direct Bilirubin 0.1mg/dL (0.0-0.2) Aspartate Amino Transferase (AST) 10U/L (15-37) L Alanine Aminotransferase (ALT) 16U/L (14-59) Alkaline Phosphatase 100U/L (46-116) Troponin I Quantitative < 0.017ng/mL (0.000-0.055) RH-Oxn-K-Type Natriuretic Peptide 5pg/mL (0-124) Total Protein 6.7g/dL (6.4-8.2) Albumin 3.3g/dL (3.4-5.0) L Lipase 79U/L (73-393) POC Troponin I 0.00ng/ml (<0.08) POC Hemoglobin 13.6g/dL (12-15) POC Hematocrit 40% (36-40) POC Sodium 140mmol/L (135-145) POC Potassium 3.4mmol/L (3.5-5.0) L POC Chloride 102mmol/L (98-110) POC Total CO2 24mmol/L (23-32) POC Blood Urea Nitrogen 10mg/dL (8-26) POC Creatinine 0.9mg/dL (0.5-1.4) POC Ionized Calcium (Joslyn) 1.15mmol/L (1.13-1.32) Urine Collection Type Unknown Urine Color Yellow Urine Clarity Clear Urine pH 7.0 Urine Specific Stella 1.015 Urine Protein Negativemg/dL (NEG-TRACE) Urine Glucose (UA) Negativemg/dL (NEG) Urine Ketones (Stick) Negativemg/dL (NEG) Urine Blood Negative (NEG) Urine Nitrite Negative (NEG) Urine Bilirubin Negative (NEG) Urine Urobilinogen Dipstick 0.2mg/dL (0.2 mg/dL) Urine Leukocyte Esterase Negative (NEG) Urine RBC 0/HPF (0-2) Urine WBC 0/HPF (0-4) Urine Squamous Epithelial Cells Few/LPF Urine Bacteria 0/HPF (0-FEW) Urine Opiates Screen Neg (NEG) Urine Methadone Screen Neg (NEG) Urine Barbiturates Neg (NEG) Urine Phencyclidine Screen Neg (NEG) Urine Amphetamine/Methamphetamine Neg (NEG) Urine Benzodiazepines Screen Neg (NEG) Urine Cocaine Screen Neg (NEG) Urine Cannabinoids Screen Neg (NEG) Urine Ethyl Alcohol Neg (NEG) Laboratory Tests 02/12/17 09:32 Laboratory Tests 02/12/17 09:32 02/12/17 09:52 EKG EKG EC: Sinus tachycardia, heart rate 106 beats/minute, upright axis, QTC of 477, SC of 152, QRS is 72, low limb lead voltage noted, contour malleus noted in the anterior septal leads, also the inferior leads, but no ST elevation or depression, abnormal ECG, does not meet STEMI criteria. As interpreted by me. [] Radiology/Procedures Radiology/Procedures [] [facility] [address] [place] [address] IMAGING REPORT Signed PATIENT: EDDY AYALA ACCOUNT: [id number] : 1975 LOCATION: ER AGE: 41 SEX: F EXAM STATUS: PRE ER ORD. PHYSICIAN: JYOTI ALEXANDRE DO REASON: CP PROCEDURE: PORTABLE CHEST 1V PORTABLE CHEST 1V Clinical Indication: CP Comparison: October 16, 2016 Technique: Portable upright AP view of the chest is obtained. Findings: No focal consolidation, pleural effusion or pneumothorax is seen. Cardiomediastinal silhouette is within normal limits of size. Visualized osseous structures and overlying soft tissues demonstrate no acute interval change. IMPRESSION: No focal consolidation or acute radiographic finding. DICTATED and SIGNED BY: ABHI MILLER MD DATE: 02/12/17 1009 CC: JYOTI ALEXANDRE DO; DERIAN TRINIDAD MD ~ Course & Med Decision Making Course & Med Decision Making Pertinent Labs and Imaging studies reviewed. (See chart for details) Patient's chest pain improved after receiving fentanyl in the ED, patient initially hypotensive, but she did receive nitroglycerin, hypotension did resolve. Patient states that she is having some recurrence of her pain in the ED. As stated she states is consistent with previous cardiac pain. Her initial troponin is negative, and her ECG does not reveal any acutely concerning findings or changes from her prior ECG from 11/17/2016. Hasn't some time since she had a cardiac evaluation per her report. I did speak with Dr. Lundberg the patient's district wire chief, who recommended the patient be admitted for a cardiac evaluation including serial enzymes. I did discuss with the patient, who is in agreement with this plan. Findings as above were discussed with Dr. Langston, who was on-call for the patient's primary care provider, Dr. Trinidad. Patient was accepted to her service as a full admission to the cardiac telemetry floor for serial enzymes and cardiac evaluation. Patient remained stable, comfortable on the monitor in sinus rhythm, bridge orders entered per discussion. Dragon Disclaimer Dragon Disclaimer This electronic medical record was generated, in whole or in part, using a voice recognition dictation system. Departure Impression: Primary Impression: Chest pain Disposition: ADMITTED INPATIENT Admitting Physician: Angie Griffith Condition: IMPROVED JYOTI ALEXANDRE DO Feb 12, 2017 09:49
[2017-02-12 09:59] LABS: CALCIUM 8.8 mg/dL (8.5-10.1); GFR 60.5; POTASSIUM 3.7 mmol/L (3.5-5.1)
--- NOTE | 2017-02-12 09:59 | EKG ---
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
[2017-02-12 10:04] LABS: ALBUMIN 3.3 g/dL (3.4-5.0); DIRECT BILIRUBIN 0.1 mg/dL (0.0-0.2); TOTAL BILIRUBIN 0.1 mg/dL (0.2-1.0); TOTAL PROTEIN 6.7 g/dL (6.4-8.2)
[2017-02-12] MEDS: NITROGLYCERIN SUBLINGUAL 0.4 MG BOTTLE OF 25. SL PRN ×2 (10:11→21:20)
[2017-02-12] MEDS: FENTANYL PF 100 MCG/2 ML VIAL. IV PRN ×3 (10:12→20:22)
--- NOTE | 2017-02-12 10:12 | RAD ---
PORTABLE CHEST 1V Clinical Indication: CP Comparison: October 16, 2016 Technique: Portable upright AP view of the chest is obtained. Findings: No focal consolidation, pleural effusion or pneumothorax is seen. Cardiomediastinal silhouette is within normal limits of size. Visualized osseous structures and overlying soft tissues demonstrate no acute interval change. IMPRESSION: No focal consolidation or acute radiographic finding.
[2017-02-12 10:21] LABS: PROTHROMBIN TIME PATIENT 12.2 SEC (11.7-14.0)
[2017-02-12 10:22] LABS: POTASSIUM ISTAT 3.4 mmol/L (3.5-5.0)
[2017-02-12 11:15] LABS: BILIRUBIN,URINE NEGATIVE (NEG); GLUCOSE,URINE NEGATIVE (NEG); NITRITE,URINE NEGATIVE (NEG); PROTEIN,URINE NEGATIVE (NEG-TRACE); UROBILINOGEN,URINE 0.2 mg/dL (0.2 mg/dL)
[2017-02-12 11:18] LABS: BARBITURATES NEG (NEG); BENZODIAZEPINES NEG (NEG); CANNABINOIDS NEG (NEG); COCAINE NEG (NEG); METHADONE NEG (NEG); OPIATES NEG (NEG); PHENCYCLIDINE NEG (NEG)
[2017-02-12 11:19] LABS: ETHANOL, URINE NEG (NEG)
[2017-02-12 11:24] LABS: BACTERIA,URINE 0 /HPF (0-FEW); RBC,URINE 0 /HPF (0-2); SQUAMOUS EPITHELIAL CELL,UR FEW /LPF; WBC,URINE 0 /HPF (0-4)
[2017-02-12] MEDS ORDERED: DEXTROSE 50% 25 GM / 50ML DISP.SYRIN. IV PRN (13:30)
[2017-02-12] MEDS ORDERED: ONDANSETRON PF 4 MG/2 ML VIAL. IV PRN (13:30)
[2017-02-12] MEDS ORDERED: NITROGLYCERIN SUBLINGUAL 0.4 MG BOTTLE OF 25. SL PRN (13:30)
[2017-02-12] MEDS ORDERED: FENTANYL PF 100 MCG/2 ML VIAL. IV PRN (13:30)
[2017-02-12] MEDS ORDERED: ACETAMINOPHEN 325 MG TABLET. PO PRN (13:30)
[2017-02-12 14:07] VITALS: BP 104/67
--- NOTE | 2017-02-12 14:51 | ACF ---
Admission Forms Criteria CARDIOLOGY GRG Clinical Indications for Admission to Inpatient Care ( Place 'X' for any and all applicable criteria): Hospital admission is needed for appropriate care of the patient because of ANY ONE of the following (1): [ ] I. Hemodynamic instability as indicated by ALL of the following (1)(2)(3) (4)(5) [ ]a) Vital signs or other findings not as expected for chronic patient condition or baseline [ ]b) Instability indicated by ANY ONE of the following: [ ]i) Hypotension [ ]ii) Symptomatic Tachycardia unresponsive to treatment ( e.g., analgesia, fluids, sedation as indicated) [ ]iii) Inadequate perfusion indicated by ANY ONE of the following: [ ] 1) Lactic acidosis (> 2 mmol/L) [ ] 2) New abnormal capillary refill (> 3 seconds) [ ] 3) Reduced urine output [ ] 4) New altered mental status [ ]iv) Orthostatic vital sign changes unresponsive to treatment (e.g., fluids) [ ]v) IV inotropic or vasopressor medication required to maintain adequate blood pressure or perfusion [ ] II. Severe heart failure as indicated by ANY ONE of the following(17)(18) [ ]a) Respiratory distress [ ]b) Hypotension [ ]c) Anasarca (refractory to outpatient therapy) [ ]d) Cardiac arrhythmias of immediate concern [ ]e) Myocardial ischemia [ ] III. Cardiac arrhythmias or findings of immediate concern indicated by ANY ONE of the following (19)(20): [ ] a) Heart rhythms that are inherently dangerous or unstable indicated by ANY ONE of the following (21)(22)(23): [ ] i) Resuscitated ventricular fibrillation or cardiac arrest [ ] ii) Ventricular escape rhythm [ ] iii) Sustained ventricular tachycardia (30 seconds or more of ventricular rhythm at greater than 100 beats per minute) [ ] iv) Nonsustained ventricular tachycardia and ANY ONE of the following: [ ] 1) Suspected cardiac ischemia as cause or consequence of ventricular tachycardia [ ] 2) In setting of acute myocarditis [ ] b) Unstable cardiac conduction defects indicated by ANY ONE of the following(23)(24)(25) [ ] i) Type II second-degree atrioventricular block [ ]ii) Third-degree atrioventricular block [ ]iii) New-onset left bundle branch block with suspected myocardial ischemia [ ]c) Any heart rhythm and ANY ONE of the following (21)(22)(26)(27) (28) [ ] i) Continuous long-term ECG monitoring needed (e.g., initiation of drug requiring monitoring for more than 24 hours) [ ] ii) Patient has automatic implanted cardioverter defibrillator that is repeatedly firing, malfunctioning, or in need of immediate adjustment of settings beyond the scope of ambulatory or observation care [ ]d) Heart rhythms of concern due to ANY ONE of the following: [ ] i) Hypotension [ ] ii) Respiratory distress [ ] iii) Association with other significant symptoms (e.g., bradycardia with syncope or ongoing dizziness, supraventricular tachycardia with chest pain (14)(15)(17) [ ] IV. Monitoring for cardiac contusion beyond the scope of observation care needed [A](30)(31)(32) [ ] V. Surgical or device complication (e.g., valve replacement complication , pacemaker dysfunction) (35)(41)(44)(45)(46) [ ] . Inpatient palliative care needed. [B](49) Also use Inpatient Palliative Care Criteria [ ] VII. Nonbacterial thrombotic (marantic) endocarditis (36)(43)(47)(48) [X] VIII. Cardiology condition, symptom, or finding for which emergency and observation care has failed or are not considered appropriate. [ ] IX. Acute valvular disease requiring inpatient as indicated by ANY ONE of the following (41) [ ]a) Acute valvular regurgitation (42) [ ]b) Noninfectious valvulitis (43) [ ]c) Obstructive valve thrombosis [ ]d) Paravalvular leak [ ]e) Other significant valvular disorder remaining after emergency or observation level of care (as appropriate) [ ]X. Pericardial disease requiring inpatient treatment as indicated by ANY ONE of the following (33)(34)(35)(36)(37) [ ]a) Suspected tamponade (38)(39)(40) [ ]b) Hemopericardium [ ]c) Other significant pericardial disorder remaining after emergency or observation level of care (as appropriate) [ ] XI. Cardiac ischemia beyond scope of emergency and observation care. [ ] XII. Hypertension requiring inpatient treatment as indicated by ANY ONE of the following (6)(7)(8) [ ]a) SBP greater than 220 mm Hg or DBP greater than 120 mmHg despite treatment [ ]b) SBP greater than 140 mm Hg or DBP greater than 100 mm Hg with evidence of acute end organ damage as indicated by ANY ONE of the following [ ] i) Encephalopathy [ ] ii) Acute renal failure as indicated by new onset of ANY ONE of the following (9)(10)(11)(12)(13) [ ]1) 3-fold rise in serum creatinine from baseline [ ]2) Serum creatinine greater than 4 mg/dL ( 354 micromoles/L) with acute rise greater than 0.5 mg/dL (44.2 micromoles/L) [ ]3) Reduction of more than 75% in estimated glomerular filtration rate from baseline [ ]4) Estimated glomerular filtration rate less than 35 mL/min/1.73m2 (0.59 mL/sec/1.73m2) in child up to 18 years of age [ ]5) Cessation of urine output indicated by ALL of the following [ ]A. Adequate volume status [ ]B. Inadequate urine output as indicated by ANY ONE of the following [ ]a. Urine output less than 0.3 mL/kg/hr for 24 hours [ ]b. Anuria (urine output less than 0.1 mL/kg/hr) for 12 hours [ ] iii) Aortic dissection [ ] iv) Myocardial Ischemia [ ] v) Left ventricular heart failure [ ]vi) Retinal Hemorrhage [ ]vii) Other significant finding [ ]c) Hypertension in child requiring inpatient treatment as indicated by ALL of the following(14)(15)(16) [ ] i) Outpatient treatment not effective, not available, or not appropriate [ ]ii) SBP or DBP greater than 95th percentile for age [ ]iii) Evidence of acute end organ damage as indicated by ANY ONE of the following [ ]1) Altered mental status [ ]2) Acute renal failure as indicated by new onset of ANY ONE of the following(9)(10)(11)(12)(13) [ ]A. 3-fold rise in serum creatinine from baseline [ ]B. Serum creatinine greater than 4 mg/dL (354 micromoles/L) with acute rise greater than 0.5 mg/dL (44.2 micromoles/L) [ ]C. Reduction of more than 75% in estimated glomerular filtration rate from baseline [ ]D. Estimated glomerular filtration rate less than 35 mL/min/1.73m2 (0.59 mL/sec/1.73m2) in child up to 18 years of age [ ]E. Cessation of urine output indicated by ALL of the following [ ]a. Adequate volume status [ ]b. Inadequate urine output as indicated by ANY ONE of the following [ ]i) Urine output less than 0.3 mL/kg/hr for 24 hours [ ]ii) Anuria ( urine output less than 0.1 mL/kg/hr) for 12 hours [ ]3) Severe headache [ ]4) Visual disturbance [ ]5) Retinal hemorrhage [ ]6) Other significant finding [ ]XIII. Complications of transplanted heart indicated by ANY ONE of the following(61): [ ]a) Acute graft rejection requiring inpatient management (eg, intravenous immunosuppression)(62)(63) [ ]b) Acute graft heart failure indicated by ANY ONE of the following(64): [ ]i) Hemodynamic instability [ ]ii) Cardiac arrhythmias of immediate concern [ ]iii) Pulmonary edema that is very severe (eg, mechanical ventilation needed, imminent or likely, need for 100% oxygen to keep oxygen saturation above 90%) [ ]iv) Pulmonary edema that is persistent as indicated by ALL of the following: [ ]1) New need for oxygen therapy to keep oxygen saturation above 90% (or increased FiO2 need from baseline) [ ]2) Has not improved sufficiently with emergency department or observation care IV diuretics or other heart failure treatments[E] [ ]v) Altered mental status that is severe or persistent [ ]vi) Increased creatinine (new on laboratory test) with reduction of more than 50% in estimated glomerular filtration rate from baseline [ ]vii) Progressively (ongoing) rising creatinine (known from past laboratory test) with reduction of more than 25% in estimated glomerular filtration rate from baseline [ ]viii) Acute renal failure [ ]ix) Acute peripheral ischemia (eg, examination shows pulseless, cool, mottled, or cyanotic extremity) [ ]x) Pulmonary artery catheter monitoring needed [ ]xi) Other sign or symptom of heart failure requiring inpatient treatment (ie, too severe or not responsive to outpatient and observation care treatment) [ ]c) Infection requiring inpatient management (eg, Hemodynamic instability, need for intravenous antimicrobial treatment)(66)(67)(68)(69)(70) [ ]d) Cardiac allograft vasculopathy requiring inpatient management ( eg evidence of cardiac ischemia)(71) [ ]e) Other complication of transplanted heart (eg, stroke, severe pulmonary hypertension, severe valvular dysfunction) requiring inpatient management(72) The original [facility] content created by [facility] has been revised. The portions of the content which have been revised are identified through the use of italic text or in bold, and [facility] has neither reviewed nor approved the modified material. All other unmodified content is copyright [facility]. Please see references footnoted in the original [facility] edition 2016 Admission Criteria Met?: Yes JEANIE PEREZ Feb 12, 2017 14:51
[2017-02-12] MEDS ORDERED: HYDROCODONE/APAP 5/325MG TABLET. PO PRN (15:30)
[2017-02-12] MEDS ORDERED: ONDANSETRON ODT 4 MG TAB.RAPDIS. PO PRN (15:30)
[2017-02-12] MEDS ORDERED: CYCLOBENZAPRINE 10 MG TABLET. PO PRN (15:30)
[2017-02-12] MEDS ORDERED: OXYCODONE IR 5 MG TABLET. PO PRN (15:30)
[2017-02-12] MEDS ORDERED: ALBUTEROL SULFATE 2.5 MG/3 ML NEBU. NEB PRN (15:30)
[2017-02-12] MEDS: IPRATRPIUM/ALBUTEROL 0.5/2.5MG 3 ML NEBU. NEB SCH ×2 (16:26→20:20)
[2017-02-12] MEDS ORDERED: CLIN300C86 PO (16:46)
[2017-02-12] MEDS ORDERED: TRAZ150T55 PO (16:46)
[2017-02-12] MEDS ORDERED: CELE-20 PO (16:46)
[2017-02-12] MEDS ORDERED: QUET400T PO (16:46)
[2017-02-12] MEDS ORDERED: TOPI100T90 PO (16:46)
[2017-02-12] MEDS ORDERED: QUIN1TAB6 PO (16:46)
[2017-02-12] MEDS ORDERED: PRAZ5CAP2 PO (16:46)
[2017-02-12] MEDS ORDERED: RANI300C PO ×2 (16:46)
[2017-02-12] MEDS ORDERED: ATOR20TA58 PO (16:46)
[2017-02-12] MEDS: METFORMIN 500 MG TABLET. PO SCH (17:31)
[2017-02-12] MEDS: INSULIN ASPART 300 UNITS/3 ML INSULN.PEN SQ SCH (17:35)
[2017-02-12] MEDS ORDERED: MONTELUKAST SODIUM 10 MG TABLET. PO SCH (18:00)
[2017-02-12 19:20] VITALS: BP 118/71
[2017-02-12] MEDS: TRIFLUOPERAZINE 1 MG PO SCH (20:20)
[2017-02-12] MEDS: BUDESONIDE 0.5 MG/2 ML NEBU. NEB SCH (20:21)
[2017-02-12] MEDS: METOPROLOL TART IMMED RELEASE 50 MG TABLET. PO SCH (20:21)
[2017-02-12] MEDS: GABAPENTIN 400 MG CAPSULE. PO SCH (20:21)
[2017-02-12] MEDS: CLONAZEPAM 0.5 MG TABLET PO SCH (20:21)
[2017-02-12] MEDS: DIVALPROEX EXTENDED RELEASE 250 MG TAB.ER.24H. PO SCH (20:21)
[2017-02-12] MEDS ORDERED: DIPHENHYDRAMINE HCL 25 MG CAPSULE PO SCH (21:00)
[2017-02-12] MEDS ORDERED: ILOPERIDONE 6 MG PO SCH (21:00)
[2017-02-12] MEDS ORDERED: QUEtiapine 300 MG TAB.ER.24H. PO SCH (21:00)
--- NOTE | 2017-02-12 22:08 | EKG ---
[facility] [address] [place] [address] Test Date: 2017-02-12 Test Time: 21:56:38 Pat Name: EDDY AYALA Department: Room: 250 Gender: F Manager Benefit: INO : 1975 Requested By: SHAMIR DICKERSON Order Number: [id number] Reading MD: Yolanda Rodriguez Measurements Intervals [place] Rate: 104 P: 62 [place]: 162 QRS: -1 QRSD: 68 T: 49 QT: 358 QTc: 477 Interpretive Statements SINUS TACHYCARDIA LEFTWARD AXIS LOW LIMB LEAD VOLTAGE QRS(T) CONTOUR ABNORMALITY CONSISTENT WITH ANTERIOR INFARCT AGE UNDETERMINED ABNORMAL ECG RI6.01 Compared to ECG 11/17/2016 15:11:01 Myocardial infarct finding now present Electronically Signed On 02-18-2017 12:39:05 CDT by Yolanda Rodriguez
[2017-02-12 23:17] VITALS: BP 111/74
[2017-02-13 03:18] VITALS: BP 112/86
[2017-02-13 04:43] LABS: BASO # 0.1 x10^3/uL (0.0-0.2); BASO % 1 % (0-3); EOS % 7 % (0-3); HEMATOCRIT 38.2 % (36.0-47.0); HEMOGLOBIN 12.3 g/dL (12.0-15.5); LYMPH # 3.9 x10^3/uL (1.0-4.8); LYMPH % 38 % (24-48); MEAN CORPUSCULAR HEMOGLOBIN 28 pg (25-35); MEAN CORPUSCULAR HGB CONC 32 g/dL (31-37); MEAN CORPUSCULAR VOLUME 87 fL (79-100); MONO % 6 % (0-9); NEUT % 48 % (31-73); PLATELET COUNT 280 x10^3/uL (140-400); RED BLOOD COUNT 4.37 x10^6/uL (3.50-5.40); RED CELL DISTRIBUTION WIDTH 14.6 % (11.5-14.5); WHITE BLOOD COUNT 10.5 x10^3/uL (4.0-11.0)
[2017-02-13 05:04] LABS: GFR 60.5; POTASSIUM 3.5 mmol/L (3.5-5.1)
[2017-02-13 07:00] VITALS: BP 109/75
[2017-02-13] MEDS ORDERED: PANTOPRAZOLE 40 MG TABLET.DR. PO SCH (07:30)
[2017-02-13] MEDS: IPRATRPIUM/ALBUTEROL 0.5/2.5MG 3 ML NEBU. NEB SCH (07:36)
[2017-02-13] MEDS: BUDESONIDE 0.5 MG/2 ML NEBU. NEB SCH (07:43)
[2017-02-13] MEDS ORDERED: POTASSIUM CHLORIDE 20 MEQ TABLET.ER. PO SCH (08:00)
[2017-02-13] MEDS: INSULIN ASPART 300 UNITS/3 ML INSULN.PEN SQ SCH (08:00)
--- NOTE | 2017-02-13 08:28 | PDOC1 ---
History and Physical Date of Admission Date of Admission DATE: 02/12/17 Identification/Chief Complaint Chief Complaint Chest pain Problems: Source Source: Patient History of Present Illness History of Present Illness Pt says that she woke up yesterday morning around 6am with pain in the center of her chest radiating to her back and on the right side of her jaw. She says that the pain never went away, but was initially a 10 and is now a 6. She had nausea and vomiting yesterday and has had diarrhea for the past couple of days. She says she hasn't really noticed anything else being different other than feeling that her "mind is not right". She states that she always has auditory and visual hallucinations, but the voices have been louder this past week. She has appointment with Psych today at 10am but won't be able to make it. Past Medical History Cardiovascular: HTN, Hyperlipidemia, Other Pulmonary: Asthma, COPD, Other CENTRAL NERVOUS SYSTEM: Seizure, Other GI: GERD Heme/Onc: Cancer Hepatobiliary: Cholelithiasis Psych: Anxiety, Bipolar, Depression, Schizophrenia, Other Musculoskeletal: Osteoarthritis Rheumatologic: No pertinent hx Infectious disease: No pertinent hx Renal/: No pertinent hx Endocrine: Diabetes Dermatology: No pertinent hx Past Surgical History Past Surgical History: Cholecystectomy, Hernia Repair, Other Family History Family History: No Significant, Other Social History Smoke: 1 pack per day ALCOHOL: none Drugs: None, Other Current Problem List Problem List Problems Medical Problems: (1) Chest pain Status: Acute Problems: Current Medications Current Medications Current Medications Nitroglycerin (Nitrostat) 0.4 mg PRN Q5MIN PRN SL CP RATING > 1/10 Last administered on 02/12/17 21:20; Start 02/12/17 at 09:30; Stop 02/13/17 at 09:29 Fentanyl Citrate (Fentanyl 2ml Vial) 25 mcg PRN Q15MIN PRN IV PAIN GREATER THAN 3/10 Last administered on 02/12/17 20:22; Start 02/12/17 at 09:30; Stop at 09:29 Ondansetron HCl (Zofran) 4 mg PRN Q8HRS PRN IV NAUSEA/VOMITING Last administered on 02/12/17 20:22; Start 02/12/17 at 13:30; Stop 02/13/17 at 13:29 Fentanyl Citrate (Fentanyl 2ml Vial) 50 mcg PRN Q2HR PRN IV PAIN Last administered on 02/12/17 22:16; Start 02/12/17 at 13:30; Stop 02/13/17 at 13:29 Acetaminophen (Tylenol) 650 mg PRN Q4HRS PRN PO FEVER; Start 02/12/17 at 13:30 ; Stop 02/13/17 at 13:29 Nitroglycerin (Nitrostat) 0.4 mg PRN Q5MIN PRN SL CHEST PAIN; Start 02/12/17 at 13:30; Stop 02/13/17 at 13:29; Status Cancel Insulin Aspart (Novolog) 0-5 UNITS TIDWMEALS SQ Last administered on 02/12/17 17:35; Start 02/12/17 at 17:00 Dextrose (Dextrose 50%-Water Syringe) 12.5 gm PRN Q15MIN PRN IV SEE COMMENTS; Start 02/12/17 at 13:30 Cetirizine HCl (Zyrtec) 10 mg DAILY PO ; Start 02/13/17 at 09:00 Clonazepam (Klonopin) 0.5 mg BID PO Last administered on 02/12/17 20:21; Start 02/12/17 at 21:00 Cyclobenzaprine HCl (Flexeril) 10 mg PRN TID PRN PO MUSCLE SPASMS; Start at 15:30 Diphenhydramine HCl (Benadryl) 50 mg QHS PO Last administered on 02/12/17 20: 24; Start 02/12/17 at 21:00 Divalproex Sodium (Depakote Er) 1,250 mg BID PO Last administered on 02/12/17 20:21; Start 02/12/17 at 21:00 Furosemide (Lasix) 40 mg DAILY PO ; Start 02/13/17 at 09:00 Acetaminophen/ Hydrocodone Bitart (Lortab 5/325) 1 tab PRN Q6HRS PRN PO PAIN Last administered on 02/12/17 17:31; Start 02/12/17 at 15:30 Metformin HCl (Glucophage) 500 mg BIDWMEALS PO Last administered on 02/12/17 17:31; Start 02/12/17 at 17:00 Montelukast Sodium (Singulair) 10 mg QEVNG PO Last administered on 02/12/17 17 :31; Start 02/12/17 at 18:00 Polyethylene Glycol (miraLAX PACKET) 17 gm DAILY PO ; Start 02/13/17 at 09:00 Potassium Chloride (Klor-Con) 20 meq DAILY08 PO ; Start 02/13/17 at 08:00 Quetiapine Fumarate (SEROquel XR) 300 mg QHS PO Last administered on 02/12/17 20:21; Start 02/12/17 at 21:00 Trifluoperazine HCl (Stelazine) 5 mg BID PO Last administered on 02/12/17 20: 20; Start 02/12/17 at 21:00 Budesonide (Pulmicort) 0.5 mg RTBID NEB Last administered on 02/13/17 07:43; Start 02/12/17 at 20:00 Non-Formulary Medication 6 mg BID PO ; Start 02/12/17 at 21:00; Stop 02/13/17 at 08:13; Status DC Albuterol Sulfate (Ventolin Neb Soln) 2.5 mg PRN Q4HRS PRN NEB SHORTNESS OF BREATH; Start 02/12/17 at 15:30 Fluoxetine HCl (Prozac) 40 mg DAILY PO ; Start 02/13/17 at 09:00 Gabapentin (Neurontin) 800 mg TID PO Last administered on 02/12/17 20:21; Start 02/12/17 at 21:00 Albuterol/ Ipratropium (Duoneb) 3 ml RTQID NEB Last administered on 02/13/17 07:36; Start 02/12/17 at 16:00 Pantoprazole Sodium (Protonix) 40 mg DAILYAC PO ; Start 02/13/17 at 07:30 Metoprolol Tartrate (Lopressor) 50 mg BID PO Last administered on 02/12/17 20: 21; Start 02/12/17 at 21:00 Ondansetron HCl (Zofran Odt) 4 mg PRN Q6HRS PRN PO NAUSEA/VOMITING; Start 02/12 at 15:30 Oxycodone HCl (Roxicodone) 15 mg PRN Q6HRS PRN PO PAIN Last administered on 21:33; Start 02/12/17 at 15:30 Active Scripts Active [place] 5-325 Tablet (Acetaminophen/Hydrocodone Bitart) 1 Each Tablet 1 Tab PO PRN Q6HRS PRN Cephalexin 500 Mg Capsule 2 Cap PO BID Bactrim Ds Tablet (Sulfamethoxazole/Trimethoprim) 1 Each Tablet 1 Each PO BID 10 Days Zofran (Ondansetron Hcl) 4 Mg Tablet 4 Mg PO BID PRN [place] 5-325 Tablet (Acetaminophen/Hydrocodone Bitart) 1 Each Tablet 1 Tab PO PRN Q6HRS PRN Depakote Er (Divalproex Sodium) 250 Mg Tab.er.24h 5 Tab PO BID [place] 5-325 Tablet (Acetaminophen/Hydrocodone Bitart) 1 Each Tablet 1 Tab PO PRN Q6HRS PRN Hydrocodone-Apap 5-325 (Hydrocodone Bit/Acetaminophen) 1 Each Tablet 1 Tab PO PRN Q6HRS PRN Prednisone 50 Mg Tablet 50 Mg PO DAILY Toprol Xl (Metoprolol Succinate) 50 Mg Tab.er.24h 0.5 Tab PO DAILY Cyclobenzaprine Hcl 10 Mg Tablet 10 Mg PO PRN TID PRN Oxycodone Hcl 15 Mg Tablet 15 Mg PO PRN QID PRN Klor-Con M20 (Potassium Chloride) 20 Meq Tab.er.prt 1 Tab PO DAILY Miralax (Polyethylene Glycol 3350) 119 Gm Powder 17 Gm PO DAILY Lasix (Furosemide) 20 Mg Tablet 40 Mg PO DAILY Reported Clindamycin Hcl 300 Mg Capsule 300 Mg PO TID Topiramate 100 Mg Tablet 1 Tab PO QHS Trazodone Hcl 150 Mg Tablet 1 Tab PO QHS Ranitidine Hcl 300 Mg Capsule 300 Mg PO BID Ranitidine Hcl 300 Mg Capsule 1 Cap PO DAILY Quinapril-Hctz 20-25 Mg Tab (Quinapril/Hydrochlorothiazide) 1 Each Tablet 1 Each PO DAILY Quetiapine Fumarate 400 Mg Tablet 800 Mg PO HS Prazosin Hcl 5 Mg Capsule 1 Cap PO QHS Celecoxib 200 Mg Capsule 200 Mg PO Atorvastatin Calcium 20 Mg Tablet 20 Mg PO HS Trulicity (Dulaglutide) 0.75 Mg/0.5 Ml Pen.injctr 0.75 Mg SQ QTU Metformin Hcl 500 Mg Tablet 1 Tab PO BID Depakote Er (Divalproex Sodium) 250 Mg Tab.er.24h 1,250 Mg PO BID Advair 250-50 Diskus (Fluticasone/Salmeterol) 1 Each Disk.w.dev 1 Puff IH BID Proair Hfa Inhaler (Albuterol Sulfate) 8.5 Gm Hfa.aer.ad 2 Puff IH PRN QID PRN Nasacort (Triamcinolone Acetonide) 10.8 Ml [place] 2 [place] NS DAILY Fanapt (Iloperidone) 6 Mg Tablet 6 Mg PO BID Vitamin D2 (Ergocalciferol (Vitamin D2)) 50,000 Unit Capsule 50,000 Unit PO QTU Benadryl (Diphenhydramine Hcl) 25 Mg Capsule 50 Mg PO QHS Gabapentin 800 Mg Tablet 800 Mg PO TID Seroquel Xr (Quetiapine Fumarate) 300 Mg Tab.er.24h 300 Mg PO QHS Trifluoperazine Hcl 5 Mg Tablet 5 Mg PO BID Fluoxetine Hcl 40 Mg Capsule 40 Mg PO HS Lansoprazole 30 Mg Capsule.dr 30 Mg PO QHS Ranitidine Hcl 300 Mg Capsule 300 Mg PO DAILY Clonazepam 0.5 Mg Tablet 0.5 Mg PO BID Montelukast Sodium Tablet (Montelukast Sodium) 10 Mg Tablet 10 Mg PO QEVNG Cetirizine Hcl 10 Mg Tablet 10 Mg PO DAILY Combivent Respimat Inhal (Ipratropium/Albuterol Sulfate) 4 Gm Aer.w.adap 2 Puff IH QID Allergies Allergies: Coded Allergies: adhesive (Verified Allergy, Intermediate, rash, 02/09/17) PAPER TAPE adhesive tape (Verified Allergy, Intermediate, Rash, 02/09/17) morphine (Verified Adverse Reaction, Intermediate, Itching, 02/09/17) Physical Exam General: Alert, Oriented X3, Cooperative, No acute distress HEENT: Atraumatic, PERRLA, EOMI, Mucous membr. moist/pink Lungs: Clear to auscultation, Normal air movement Heart: RRR, no rubs, no gallops, no murmurs Abdomen: Normal bowel sounds, Soft, No tenderness, No hepatosplenomegaly Extremities: No clubbing, No cyanosis, No edema Skin: No rashes, No breakdown, No significant lesion Neuro: Normal tone, Cranial nerves 3-12 NL Psych/Mental Status: Mood NL, Other (confused) Vitals Vitals Vital Signs Date Time Temp Pulse Resp B/P Pulse Ox O2 Delivery O2 Flow Rate FiO2 02/13/17 07:30 95 Nasal Cannula 4.0 02/13/17 07:00 97.5 98 20 109/75 97.5 Labs Labs Laboratory Tests Test 02/12/17 09:32 02/12/17 09:49 02/12/17 09:52 02/12/17 10:58 White Blood Count 9.5x10^3/uL (4.0-11.0) Red Blood Count 4.59x10^6/uL (3.50-5.40) Hemoglobin 13.0g/dL (12.0-15.5) Hematocrit 39.4% (36.0-47.0) Mean Corpuscular Volume 86fL (79-100) Mean Corpuscular Hemoglobin 28pg (25-35) Mean Corpuscular Hemoglobin Concent 33g/dL (31-37) Red Cell Distribution Width 14.4% (11.5-14.5) Platelet Count 275x10^3/uL (140-400) Neutrophils (%) (Auto) 55% (31-73) Lymphocytes (%) (Auto) 32% (24-48) Monocytes (%) (Auto) 6% (0-9) Eosinophils (%) (Auto) 6% (0-3) Basophils (%) (Auto) 1% (0-3) Neutrophils # (Auto) 5.3x10^3uL (1.8-7.7) Lymphocytes # (Auto) 3.0x10^3/uL (1.0-4.8) Monocytes # (Auto) 0.6x10^3/uL (0.0-1.1) Eosinophils # (Auto) 0.6x10^3/uL (0.0-0.7) Basophils # (Auto) 0.0x10^3/uL (0.0-0.2) Prothrombin Time 12.2SEC (11.7-14.0) Prothromb Time International Ratio 1.0 (0.8-1.1) Activated Partial Thromboplast Time 28SEC (24-38) Sodium Level 142mmol/L (136-145) Potassium Level 3.7mmol/L (3.5-5.1) Chloride Level 103mmol/L (98-107) Carbon Dioxide Level 25mmol/L (21-32) Anion Gap 14 (6-14) 19mmol/L (6-14) Blood Urea Nitrogen 11mg/dL (7-20) Creatinine 1.0mg/dL (0.6-1.0) Estimated GFR (Cockcroft-Gault) 60.5 Glucose Level 164mg/dL (70-99) 160mg/dL (70-99) Calcium Level 8.8mg/dL (8.5-10.1) Total Bilirubin 0.1mg/dL (0.2-1.0) Direct Bilirubin 0.1mg/dL (0.0-0.2) Aspartate Amino Transf (AST/SGOT) 10U/L (15-37) Alanine Aminotransferase (ALT/SGPT) 16U/L (14-59) Alkaline Phosphatase 100U/L (46-116) Troponin I Quantitative < 0.017ng/mL (0.000-0.055) [id number]-Type Natriuretic Peptide 5pg/mL (0-124) Total Protein 6.7g/dL (6.4-8.2) Albumin 3.3g/dL (3.4-5.0) Lipase 79U/L (73-393) Bedside Troponin I 0.00ng/ml (<0.08) Bedside Hemoglobin 13.6g/dL (12-15) Bedside Hematocrit 40% (36-40) Bedside Sodium 140mmol/L (135-145) Bedside Potassium 3.4mmol/L (3.5-5.0) Bedside Chloride 102mmol/L (98-110) Bedside Total CO2 24mmol/L (23-32) Bedside Blood Urea Nitrogen 10mg/dL (8-26) Bedside Creatinine 0.9mg/dL (0.5-1.4) Bedside Ionized Calcium (Joslyn) 1.15mmol/L (1.13-1.32) Urine Collection Type Unknown Urine Color Yellow Urine Clarity Clear Urine pH 7.0 Urine Specific [place] 1.015 Urine Protein Negativemg/dL (NEG-TRACE) Urine Glucose (UA) Negativemg/dL (NEG) Urine Ketones (Stick) Negativemg/dL (NEG) Urine Blood Negative (NEG) Urine Nitrite Negative (NEG) Urine Bilirubin Negative (NEG) Urine Urobilinogen Dipstick 0.2mg/dL (0.2 mg/dL) Urine Leukocyte Esterase Negative (NEG) Urine RBC 0/HPF (0-2) Urine WBC 0/HPF (0-4) Urine Squamous Epithelial Cells Few/LPF Urine Bacteria 0/HPF (0-FEW) Urine Opiates Screen Neg (NEG) Urine Methadone Screen Neg (NEG) Urine Barbiturates Neg (NEG) Urine Phencyclidine Screen Neg (NEG) Urine Amphetamine/Methamphetamine Neg (NEG) Urine Benzodiazepines Screen Neg (NEG) Urine Cocaine Screen Neg (NEG) Urine Cannabinoids Screen Neg (NEG) Urine Ethyl Alcohol Neg (NEG) Test 02/12/17 15:35 02/12/17 17:12 02/12/17 20:37 02/13/17 03:20 Troponin I Quantitative < 0.017ng/mL (0.000-0.055) Glucose (Fingerstick) 173mg/dL (70-99) 154mg/dL (70-99) White Blood Count 10.5x10^3/uL (4.0-11.0) Red Blood Count 4.37x10^6/uL (3.50-5.40) Hemoglobin 12.3g/dL (12.0-15.5) Hematocrit 38.2% (36.0-47.0) Mean Corpuscular Volume 87fL (79-100) Mean Corpuscular Hemoglobin 28pg (25-35) Mean Corpuscular Hemoglobin Concent 32g/dL (31-37) Red Cell Distribution Width 14.6% (11.5-14.5) Platelet Count 280x10^3/uL (140-400) Neutrophils (%) (Auto) 48% (31-73) Lymphocytes (%) (Auto) 38% (24-48) Monocytes (%) (Auto) 6% (0-9) Eosinophils (%) (Auto) 7% (0-3) Basophils (%) (Auto) 1% (0-3) Neutrophils # (Auto) 5.1x10^3uL (1.8-7.7) Lymphocytes # (Auto) 3.9x10^3/uL (1.0-4.8) Monocytes # (Auto) 0.7x10^3/uL (0.0-1.1) Eosinophils # (Auto) 0.8x10^3/uL (0.0-0.7) Basophils # (Auto) 0.1x10^3/uL (0.0-0.2) Sodium Level 142mmol/L (136-145) Potassium Level 3.5mmol/L (3.5-5.1) Chloride Level 103mmol/L (98-107) Carbon Dioxide Level 27mmol/L (21-32) Anion Gap 12 (6-14) Blood Urea Nitrogen 13mg/dL (7-20) Creatinine 1.0mg/dL (0.6-1.0) Estimated GFR (Cockcroft-Gault) 60.5 Glucose Level 148mg/dL (70-99) Calcium Level 9.0mg/dL (8.5-10.1) Test 02/13/17 08:12 Glucose (Fingerstick) 137mg/dL (70-99) Laboratory Tests Test 02/12/17 09:32 02/12/17 09:49 02/12/17 09:52 02/12/17 10:58 White Blood Count 9.5x10^3/uL (4.0-11.0) Red Blood Count 4.59x10^6/uL (3.50-5.40) Hemoglobin 13.0g/dL (12.0-15.5) Hematocrit 39.4% (36.0-47.0) Mean Corpuscular Volume 86fL (79-100) Mean Corpuscular Hemoglobin 28pg (25-35) Mean Corpuscular Hemoglobin Concent 33g/dL (31-37) Red Cell Distribution Width 14.4% (11.5-14.5) Platelet Count 275x10^3/uL (140-400) Neutrophils (%) (Auto) 55% (31-73) Lymphocytes (%) (Auto) 32% (24-48) Monocytes (%) (Auto) 6% (0-9) Eosinophils (%) (Auto) 6% (0-3) Basophils (%) (Auto) 1% (0-3) Neutrophils # (Auto) 5.3x10^3uL (1.8-7.7) Lymphocytes # (Auto) 3.0x10^3/uL (1.0-4.8) Monocytes # (Auto) 0.6x10^3/uL (0.0-1.1) Eosinophils # (Auto) 0.6x10^3/uL (0.0-0.7) Basophils # (Auto) 0.0x10^3/uL (0.0-0.2) Prothrombin Time 12.2SEC (11.7-14.0) Prothromb Time International Ratio 1.0 (0.8-1.1) Activated Partial Thromboplast Time 28SEC (24-38) Sodium Level 142mmol/L (136-145) Potassium Level 3.7mmol/L (3.5-5.1) Chloride Level 103mmol/L (98-107) Carbon Dioxide Level 25mmol/L (21-32) Anion Gap 14 (6-14) 19mmol/L (6-14) Blood Urea Nitrogen 11mg/dL (7-20) Creatinine 1.0mg/dL (0.6-1.0) Estimated GFR (Cockcroft-Gault) 60.5 Glucose Level 164mg/dL (70-99) 160mg/dL (70-99) Calcium Level 8.8mg/dL (8.5-10.1) Total Bilirubin 0.1mg/dL (0.2-1.0) Direct Bilirubin 0.1mg/dL (0.0-0.2) Aspartate Amino Transf (AST/SGOT) 10U/L (15-37) Alanine Aminotransferase (ALT/SGPT) 16U/L (14-59) Alkaline Phosphatase 100U/L (46-116) Troponin I Quantitative < 0.017ng/mL (0.000-0.055) SU-Kkn-[id number]-Type Natriuretic Peptide 5pg/mL (0-124) Total Protein 6.7g/dL (6.4-8.2) Albumin 3.3g/dL (3.4-5.0) Lipase 79U/L (73-393) Bedside Troponin I 0.00ng/ml (<0.08) Bedside Hemoglobin 13.6g/dL (12-15) Bedside Hematocrit 40% (36-40) Bedside Sodium 140mmol/L (135-145) Bedside Potassium 3.4mmol/L (3.5-5.0) Bedside Chloride 102mmol/L (98-110) Bedside Total CO2 24mmol/L (23-32) Bedside Blood Urea Nitrogen 10mg/dL (8-26) Bedside Creatinine 0.9mg/dL (0.5-1.4) Bedside Ionized Calcium (Joslyn) 1.15mmol/L (1.13-1.32) Urine Collection Type Unknown Urine Color Yellow Urine Clarity Clear Urine pH 7.0 Urine Specific [place] 1.015 Urine Protein Negativemg/dL (NEG-TRACE) Urine Glucose (UA) Negativemg/dL (NEG) Urine Ketones (Stick) Negativemg/dL (NEG) Urine Blood Negative (NEG) Urine Nitrite Negative (NEG) Urine Bilirubin Negative (NEG) Urine Urobilinogen Dipstick 0.2mg/dL (0.2 mg/dL) Urine Leukocyte Esterase Negative (NEG) Urine RBC 0/HPF (0-2) Urine WBC 0/HPF (0-4) Urine Squamous Epithelial Cells Few/LPF Urine Bacteria 0/HPF (0-FEW) Urine Opiates Screen Neg (NEG) Urine Methadone Screen Neg (NEG) Urine Barbiturates Neg (NEG) Urine Phencyclidine Screen Neg (NEG) Urine Amphetamine/Methamphetamine Neg (NEG) Urine Benzodiazepines Screen Neg (NEG) Urine Cocaine Screen Neg (NEG) Urine Cannabinoids Screen Neg (NEG) Urine Ethyl Alcohol Neg (NEG) Test 02/12/17 15:35 02/12/17 17:12 02/12/17 20:37 02/13/17 03:20 Troponin I Quantitative < 0.017ng/mL (0.000-0.055) Glucose (Fingerstick) 173mg/dL (70-99) 154mg/dL (70-99) White Blood Count 10.5x10^3/uL (4.0-11.0) Red Blood Count 4.37x10^6/uL (3.50-5.40) Hemoglobin 12.3g/dL (12.0-15.5) Hematocrit 38.2% (36.0-47.0) Mean Corpuscular Volume 87fL (79-100) Mean Corpuscular Hemoglobin 28pg (25-35) Mean Corpuscular Hemoglobin Concent 32g/dL (31-37) Red Cell Distribution Width 14.6% (11.5-14.5) Platelet Count 280x10^3/uL (140-400) Neutrophils (%) (Auto) 48% (31-73) Lymphocytes (%) (Auto) 38% (24-48) Monocytes (%) (Auto) 6% (0-9) Eosinophils (%) (Auto) 7% (0-3) Basophils (%) (Auto) 1% (0-3) Neutrophils # (Auto) 5.1x10^3uL (1.8-7.7) Lymphocytes # (Auto) 3.9x10^3/uL (1.0-4.8) Monocytes # (Auto) 0.7x10^3/uL (0.0-1.1) Eosinophils # (Auto) 0.8x10^3/uL (0.0-0.7) Basophils # (Auto) 0.1x10^3/uL (0.0-0.2) Sodium Level 142mmol/L (136-145) Potassium Level 3.5mmol/L (3.5-5.1) Chloride Level 103mmol/L (98-107) Carbon Dioxide Level 27mmol/L (21-32) Anion Gap 12 (6-14) Blood Urea Nitrogen 13mg/dL (7-20) Creatinine 1.0mg/dL (0.6-1.0) Estimated GFR (Cockcroft-Gault) 60.5 Glucose Level 148mg/dL (70-99) Calcium Level 9.0mg/dL (8.5-10.1) Test 02/13/17 08:12 Glucose (Fingerstick) 137mg/dL (70-99) VTE Prophylaxis Ordered VTE Prophylaxis Devices: Yes VTE Pharmacological Prophylaxi: No Assessment/Plan Assessment/Plan Pt is a 41yo F admitted for chest pain 1)Chest pain- pt with multiple risk factors. Troponins trended. Cardiology following. Had catheterization in 2011 that was normal. 2)Psychiatric issues- hallucinations currently worse. When need to evaluate prior to discharge to see if she is appropriate for outpatient or inpatient management. Continue Fluoxetine 40mg, Stelazine 5mg BID, Seroquel XR 300mg QHS , Depakote ER 1250mg BID and Clonazepam 0.5mg BID 3)Chronic respiratory failure- 2/2 COPD. Pt normally on 3L. Continue inhalers 4)HTN- continue Lasix 40mg, Metoprolol 50mg BID 5)DM2- continue Metformin 500mg BID SHAMIR DICKERSON MD Feb 13, 2017 08:28
[2017-02-13] MEDS: METFORMIN 500 MG TABLET. PO SCH (08:51)
[2017-02-13] MEDS: GABAPENTIN 400 MG CAPSULE. PO SCH (08:52)
[2017-02-13] MEDS: TRIFLUOPERAZINE 1 MG PO SCH (08:52)
[2017-02-13] MEDS: CLONAZEPAM 0.5 MG TABLET PO SCH (08:52)
[2017-02-13] MEDS: DIVALPROEX EXTENDED RELEASE 250 MG TAB.ER.24H. PO SCH (08:52)
[2017-02-13 08:53] VITALS: BP 109/75
[2017-02-13] MEDS: METOPROLOL TART IMMED RELEASE 50 MG TABLET. PO SCH (08:53)
[2017-02-13] MEDS ORDERED: FUROSEMIDE 20 MG TABLET PO SCH (09:00)
[2017-02-13] MEDS ORDERED: POLYETHYLENE GLYCOL 3350 17 GM PACKET. PO SCH (09:00)
[2017-02-13] MEDS ORDERED: FLUOXETINE HCL 20 MG CAPSULE. PO SCH (09:00)
[2017-02-13] MEDS ORDERED: CETIRIZINE HCL 10 MG TABLET. PO SCH (09:00)
--- NOTE | 2017-02-13 09:41 | PDOC2 ---
CARDIAC CONSULT DATE OF CONSULT Date of Consult DATE: 02/13/17 TIME: 09:25 REASON FOR CONSULT Reason for Consult: Chest Pain REFERRING PHYSICIAN Referring Physician: Dr. Douglas SOURCE Source: Chart review, Patient HISTORY OF PRESENT ILLNESS HISTORY OF PRESENT ILLNESS This is a 41 yo female who presented with complaints of chest pain. Patient reports pain began yesterday morning while she was watching television. Located in her central chest. Describes as constant and stabbing in nature. Associated with dizziness. Denies any SOA, diaphoresis, orthopnea, LE edema, or nausea/ vomiting. Worsened by certain movements and by pressing on her chest. Does not seem to be affected by eating or deep breathing. Improved with pain medication. Asking when she can go home. H/o of psych issues including anxiety, depression, bipolar disorder, and schizophrenia. Reports she has been hearing voice lately. Friend/caregiver at bedside. Has a outpatient Psych appointment at 11 today that she "needs to make". Cath in 2013 with normal coronaries. Echo 02/12 with normal LV function. Reports compliance with medications. PAST MEDICAL HISTORY Cardiovascular: HTN, Hyperlipidemia Pulmonary: COPD, Other (FELI) CENTRAL NERVOUS SYSTEM: Seizure GI: GERD Heme/Onc: Cancer Hepatobiliary: Cholelithiasis Psych: Anxiety, Bipolar, Depression, Schizophrenia Musculoskeletal: Osteoarthritis Rheumatologic: No pertinent hx Infectious disease: No pertinent hx ENT: No pertinent hx Renal/: No pertinent hx Endocrine: Diabetes, Other (obesity ) Dermatology: No pertinent hx PAST SURGICAL HISTORY Past Surgical History: Cholecystectomy, Hernia Repair, Other (oophorectomy ) FAMILY HISTORY Family History: Other (noncontributory ) SOCIAL HISTORY Smoke: <1 pack per day ALCOHOL: none Drugs: None Lives: with Family CURRENT MEDICATIONS CURRENT MEDICATIONS Current Medications Medications (Trade) Dose Ordered Sig/Ophelia Route PRN Reason Start Time Stop Time Status Last Admin Dose Admin Nitroglycerin (Nitrostat) 0.4 mg PRN Q5MIN PRN SL CP RATING > 1/10 02/12/17 09:30 02/13/17 09:29 02/12/17 21:20 Fentanyl Citrate (Fentanyl 2ml Vial) 25 mcg PRN Q15MIN PRN IV PAIN GREATER THAN 3/10 02/12/17 09:30 02/13/17 09:29 02/12/17 20:22 Ondansetron HCl (Zofran) 4 mg PRN Q8HRS PRN IV NAUSEA/VOMITING 02/12/17 13:30 02/13/17 13:29 02/12/17 20:22 Fentanyl Citrate (Fentanyl 2ml Vial) 50 mcg PRN Q2HR PRN IV PAIN 02/12/17 13:30 02/13/17 13:29 02/12/17 22:16 Insulin Aspart (Novolog) 0-5 UNITS TIDWMEALS SQ 02/12/17 17:00 02/12/17 17:35 Cetirizine HCl (Zyrtec) 10 mg DAILY PO 02/13/17 09:00 02/13/17 08:52 Clonazepam (Klonopin) 0.5 mg BID PO 02/12/17 21:00 02/13/17 08:52 Diphenhydramine HCl (Benadryl) 50 mg QHS PO 02/12/17 21:00 02/12/17 20:24 Divalproex Sodium (Depakote Er) 1,250 mg BID PO 02/12/17 21:00 02/13/17 08:52 Furosemide (Lasix) 40 mg DAILY PO 02/13/17 09:00 02/13/17 08:52 Acetaminophen/ Hydrocodone Bitart (Lortab 5/325) 1 tab PRN Q6HRS PRN PO PAIN 02/12/17 15:30 02/12/17 17:31 Metformin HCl (Glucophage) 500 mg BIDWMEALS PO 02/12/17 17:00 02/13/17 08:51 Montelukast Sodium (Singulair) 10 mg QEVNG PO 02/12/17 18:00 02/12/17 17:31 Polyethylene Glycol (miraLAX PACKET) 17 gm DAILY PO 02/13/17 09:00 02/13/17 08:52 Potassium Chloride (Klor-Con) 20 meq DAILY08 PO 02/13/17 08:00 02/13/17 08:51 Quetiapine Fumarate (SEROquel XR) 300 mg QHS PO 02/12/17 21:00 02/12/17 20:21 Trifluoperazine HCl (Stelazine) 5 mg BID PO 02/12/17 21:00 02/13/17 08:52 Budesonide (Pulmicort) 0.5 mg RTBID NEB 02/12/17 20:00 02/13/17 07:43 Fluoxetine HCl (Prozac) 40 mg DAILY PO 02/13/17 09:00 02/13/17 08:52 Gabapentin (Neurontin) 800 mg TID PO 02/12/17 21:00 02/13/17 08:52 Albuterol/ Ipratropium (Duoneb) 3 ml RTQID NEB 02/12/17 16:00 02/13/17 07:36 Pantoprazole Sodium (Protonix) 40 mg DAILYAC PO 02/13/17 07:30 02/13/17 08:51 Metoprolol Tartrate (Lopressor) 50 mg BID PO 02/12/17 21:00 02/13/17 08:53 Oxycodone HCl (Roxicodone) 15 mg PRN Q6HRS PRN PO PAIN 02/12/17 15:30 02/12/17 21:33 ALLERGIES ALLERGIES: Coded Allergies: adhesive (Verified Allergy, Intermediate, rash, 02/09/17) PAPER TAPE adhesive tape (Verified Allergy, Intermediate, Rash, 02/09/17) morphine (Verified Adverse Reaction, Intermediate, Itching, 02/09/17) ROS Review of System 14 point ROS conducted with pertinent positives noted above in HPI. PHYSICAL EXAM General: Alert, Oriented X3, Cooperative, No acute distress, Other (drowsy ) HEENT: Atraumatic, Mucous membr. moist/pink Lungs: Clear to auscultation, Normal air movement Heart: Regular rate, Normal S1, Normal S2, Other (central chest tenderness with palpation ) Abdomen: Soft, Other (obese ) Extremities: No edema, Normal pulses Skin: No breakdown, No significant lesion Neuro: Normal speech, Sensation intact Psych/Mental Status: Mental status NL, Mood NL MUSCULOSKELETAL: Full range of motion without pain VITALS VITALS Vital Signs Date Time Temp Pulse Resp B/P Pulse Ox O2 Delivery O2 Flow Rate FiO2 02/13/17 08:53 98 109/75 02/13/17 07:30 95 Nasal Cannula 4.0 02/13/17 07:00 97.5 20 97.5 LABS Lab: Laboratory Tests Test 02/12/17 09:32 02/12/17 09:49 02/12/17 09:52 02/12/17 10:58 White Blood Count 9.5x10^3/uL (4.0-11.0) Red Blood Count 4.59x10^6/uL (3.50-5.40) Hemoglobin 13.0g/dL (12.0-15.5) Hematocrit 39.4% (36.0-47.0) Mean Corpuscular Volume 86fL (79-100) Mean Corpuscular Hemoglobin 28pg (25-35) Mean Corpuscular Hemoglobin Concent 33g/dL (31-37) Red Cell Distribution Width 14.4% (11.5-14.5) Platelet Count 275x10^3/uL (140-400) Neutrophils (%) (Auto) 55% (31-73) Lymphocytes (%) (Auto) 32% (24-48) Monocytes (%) (Auto) 6% (0-9) Eosinophils (%) (Auto) 6% (0-3) Basophils (%) (Auto) 1% (0-3) Neutrophils # (Auto) 5.3x10^3uL (1.8-7.7) Lymphocytes # (Auto) 3.0x10^3/uL (1.0-4.8) Monocytes # (Auto) 0.6x10^3/uL (0.0-1.1) Eosinophils # (Auto) 0.6x10^3/uL (0.0-0.7) Basophils # (Auto) 0.0x10^3/uL (0.0-0.2) Prothrombin Time 12.2SEC (11.7-14.0) Prothromb Time International Ratio 1.0 (0.8-1.1) Activated Partial Thromboplast Time 28SEC (24-38) Sodium Level 142mmol/L (136-145) Potassium Level 3.7mmol/L (3.5-5.1) Chloride Level 103mmol/L (98-107) Carbon Dioxide Level 25mmol/L (21-32) Anion Gap 14 (6-14) 19mmol/L (6-14) Blood Urea Nitrogen 11mg/dL (7-20) Creatinine 1.0mg/dL (0.6-1.0) Estimated GFR (Cockcroft-Gault) 60.5 Glucose Level 164mg/dL (70-99) 160mg/dL (70-99) Calcium Level 8.8mg/dL (8.5-10.1) Total Bilirubin 0.1mg/dL (0.2-1.0) Direct Bilirubin 0.1mg/dL (0.0-0.2) Aspartate Amino Transf (AST/SGOT) 10U/L (15-37) Alanine Aminotransferase (ALT/SGPT) 16U/L (14-59) Alkaline Phosphatase 100U/L (46-116) Troponin I Quantitative < 0.017ng/mL (0.000-0.055) FE-Fqu-C-Type Natriuretic Peptide 5pg/mL (0-124) Total Protein 6.7g/dL (6.4-8.2) Albumin 3.3g/dL (3.4-5.0) Lipase 79U/L (73-393) Bedside Troponin I 0.00ng/ml (<0.08) Bedside Hemoglobin 13.6g/dL (12-15) Bedside Hematocrit 40% (36-40) Bedside Sodium 140mmol/L (135-145) Bedside Potassium 3.4mmol/L (3.5-5.0) Bedside Chloride 102mmol/L (98-110) Bedside Total CO2 24mmol/L (23-32) Bedside Blood Urea Nitrogen 10mg/dL (8-26) Bedside Creatinine 0.9mg/dL (0.5-1.4) Bedside Ionized Calcium ([place]) 1.15mmol/L (1.13-1.32) Urine Collection Type Unknown Urine Color Yellow Urine Clarity Clear Urine pH 7.0 Urine Specific [place] 1.015 Urine Protein Negativemg/dL (NEG-TRACE) Urine Glucose (UA) Negativemg/dL (NEG) Urine Ketones (Stick) Negativemg/dL (NEG) Urine Blood Negative (NEG) Urine Nitrite Negative (NEG) Urine Bilirubin Negative (NEG) Urine Urobilinogen Dipstick 0.2mg/dL (0.2 mg/dL) Urine Leukocyte Esterase Negative (NEG) Urine RBC 0/HPF (0-2) Urine WBC 0/HPF (0-4) Urine Squamous Epithelial Cells Few/LPF Urine Bacteria 0/HPF (0-FEW) Urine Opiates Screen Neg (NEG) Urine Methadone Screen Neg (NEG) Urine Barbiturates Neg (NEG) Urine Phencyclidine Screen Neg (NEG) Urine Amphetamine/Methamphetamine Neg (NEG) Urine Benzodiazepines Screen Neg (NEG) Urine Cocaine Screen Neg (NEG) Urine Cannabinoids Screen Neg (NEG) Urine Ethyl Alcohol Neg (NEG) Test 02/12/17 15:35 02/12/17 17:12 02/12/17 20:37 02/13/17 03:20 Troponin I Quantitative < 0.017ng/mL (0.000-0.055) Glucose (Fingerstick) 173mg/dL (70-99) 154mg/dL (70-99) White Blood Count 10.5x10^3/uL (4.0-11.0) Red Blood Count 4.37x10^6/uL (3.50-5.40) Hemoglobin 12.3g/dL (12.0-15.5) Hematocrit 38.2% (36.0-47.0) Mean Corpuscular Volume 87fL (79-100) Mean Corpuscular Hemoglobin 28pg (25-35) Mean Corpuscular Hemoglobin Concent 32g/dL (31-37) Red Cell Distribution Width 14.6% (11.5-14.5) Platelet Count 280x10^3/uL (140-400) Neutrophils (%) (Auto) 48% (31-73) Lymphocytes (%) (Auto) 38% (24-48) Monocytes (%) (Auto) 6% (0-9) Eosinophils (%) (Auto) 7% (0-3) Basophils (%) (Auto) 1% (0-3) Neutrophils # (Auto) 5.1x10^3uL (1.8-7.7) Lymphocytes # (Auto) 3.9x10^3/uL (1.0-4.8) Monocytes # (Auto) 0.7x10^3/uL (0.0-1.1) Eosinophils # (Auto) 0.8x10^3/uL (0.0-0.7) Basophils # (Auto) 0.1x10^3/uL (0.0-0.2) Sodium Level 142mmol/L (136-145) Potassium Level 3.5mmol/L (3.5-5.1) Chloride Level 103mmol/L (98-107) Carbon Dioxide Level 27mmol/L (21-32) Anion Gap 12 (6-14) Blood Urea Nitrogen 13mg/dL (7-20) Creatinine 1.0mg/dL (0.6-1.0) Estimated GFR (Cockcroft-Gault) 60.5 Glucose Level 148mg/dL (70-99) Calcium Level 9.0mg/dL (8.5-10.1) Test 02/13/17 08:12 Glucose (Fingerstick) 137mg/dL (70-99) ECHOCARDIOGRAM ECHOCARDIOGRAM <Conclusion> The left ventricular systolic function is normal. The Ejection Fraction is estimated at 60-65%. There is normal LV segmental wall motion. There is mild concentric left ventricular hypertrophy. Trace mitral regurgitation. Trace tricuspid regurgitation. There is mild pulmonary hypertension. The PA pressure was estimated at 40 mmHg. There is no evidence of significant pericardial effusion. DATE: 02/15/16 1646 HEART CATH HEART CATH Conclusion 1. Normal coronary arteries 2. Normal left ventricular systolic function with ejection fraction estimated at 60% 3. No mitral regurgitation. No aortic stenosis. DATE: 12/06/13 0733 ASSESSMENT/PLAN ASSESSMENT/PLAN 1. Chest pain, atypical 2. Hypertension 3. Hyperlipidemia 4. GERD 5. anxiety/dep/bipolar/schizophrenia Recommendations AMI ruled out. Echo last year without WMA. Cath 2013 with normal coronaries. Suspect pain is MSK in origin as it is reproducible with palpation. May discharge from CV to make it to psych appointment as this appears to supersede atypical CP, presently Follow up in our office PRN. Problems: HEIDI POOLE APRN Feb 13, 2017 09:41
--- NOTE | 2017-02-13 10:41 | PDOC3 ---
Discharge Summary* Date of Admission: Feb 12, 2017 Date of Discharge: Feb 13, 2017 Admitting Diagnosis Problems Medical Problems: (1) Chest pain Status: Acute Final Diagnosis Atypical chest pain with musculoskeletal features, Multiple psychiatric conditions, Chronic respiratory failure 2/2 COPD, HTN, DM2 CONSULTS Cardiology Procedures CXR- WNL Brief Hospital Course Pt is a 41yo F admitted for chest pain 1)Chest pain- pt with multiple risk factors. Troponins trended and were normal. Had catheterization in 2011 that was normal. Cardiology was following and was okay with pt being discharged so she could make it to her psychiatry appointment, as pt's psychiatric conditions have been decompensating 2)Psychiatric issues- hallucinations currently worse, discharging so pt can get to psychiatry appointment for medication adjustments. Discharged on home medications of Fluoxetine 40mg, Stelazine 5mg BID, Seroquel XR 300mg QHS, Depakote ER 1250mg BID and Clonazepam 0.5mg BID 3)Chronic respiratory failure- 2/2 COPD. Pt normally on 3L. Continued inhalers 4)HTN- continued Lasix 40mg, Metoprolol 50mg BID 5)DM2- continued Metformin 500mg BID Disposition/Orders: D/C to Home CONDITION AT DISCHARGE: Improved, Stable Diet: 2 gr sodium, Consistent Carbohydrate Scheduled Atorvastatin Calcium (Atorvastatin Calcium) 20 MG PO HS (Reported) Cephalexin (Cephalexin) 2 CAP PO BID Cetirizine Hcl (Cetirizine Hcl) 10 MG PO DAILY (Reported) Clindamycin Hcl (Clindamycin Hcl) 300 MG PO TID (Reported) Clonazepam (Clonazepam) 0.5 MG PO BID (Reported) Diphenhydramine Hcl (Benadryl) 50 MG PO QHS (Reported) Divalproex Sodium (Depakote Er) 1,250 MG PO BID (Reported) Divalproex Sodium (Depakote Er) 5 TAB PO BID Dulaglutide (Trulicity) 0.75 MG SQ QTU (Reported) Ergocalciferol (Vitamin D2) (Vitamin D2) 50,000 UNIT PO QTU (Reported) Fluoxetine Hcl (Fluoxetine Hcl) 40 MG PO HS (Reported) Fluticasone/Salmeterol (Advair 250-50 Diskus) 1 PUFF IH BID (Reported) Furosemide (Lasix) 40 MG PO DAILY Gabapentin (Gabapentin) 800 MG PO TID (Reported) Iloperidone (Fanapt) 6 MG PO BID (Reported) Ipratropium/Albuterol Sulfate (Combivent Respimat Inhal) 2 PUFF IH QID (Reported ) Lansoprazole (Lansoprazole) 30 MG PO QHS (Reported) Metformin Hcl (Metformin Hcl) 1 TAB PO BID (Reported) Metoprolol Succinate (Toprol Xl) 0.5 TAB PO DAILY Montelukast Sodium (Montelukast Sodium Tablet) 10 MG PO QEVNG (Reported) Polyethylene Glycol 3350 (Miralax) 17 GM PO DAILY Potassium Chloride (Klor-Con M20) 1 TAB PO DAILY Prazosin Hcl (Prazosin Hcl) 1 CAP PO QHS (Reported) Prednisone (Prednisone) 50 MG PO DAILY Quetiapine Fumarate (Seroquel Xr) 300 MG PO QHS (Reported) Quetiapine Fumarate (Quetiapine Fumarate) 800 MG PO HS (Reported) Quinapril/Hydrochlorothiazide (Quinapril-Hctz 20-25 Mg Tab) 1 EACH PO DAILY ( Reported) Ranitidine Hcl (Ranitidine Hcl) 300 MG PO DAILY (Reported) Ranitidine Hcl (Ranitidine Hcl) 1 CAP PO DAILY (Reported) Ranitidine Hcl (Ranitidine Hcl) 300 MG PO BID (Reported) Sulfamethoxazole/Trimethoprim (Bactrim Ds Tablet) 1 EACH PO BID Topiramate (Topiramate) 1 TAB PO QHS (Reported) Trazodone Hcl (Trazodone Hcl) 1 TAB PO QHS (Reported) Triamcinolone Acetonide (Nasacort) 2 SPRAY NS DAILY (Reported) Trifluoperazine Hcl (Trifluoperazine Hcl) 5 MG PO BID (Reported) Scheduled PRN Albuterol Sulfate (Proair Hfa Inhaler) 2 PUFF IH PRN QID PRN PRN WHEEZING ( Reported) Cyclobenzaprine Hcl (Cyclobenzaprine Hcl) 10 MG PO PRN TID PRN PRN MUSCLE SPASMS Hydrocodone Bit/Acetaminophen (Hydrocodone-Apap 5-325 ) 1 TAB PO PRN Q6HRS PRN PRN PAIN Hydrocodone/Apap 5-325 ([place] 5-325 Tablet) 1 TAB PO PRN Q6HRS PRN PRN PAIN Hydrocodone/Apap 5-325 ([place] 5-325 Tablet) 1 TAB PO PRN Q6HRS PRN PRN PAIN Hydrocodone/Apap 5-325 ([place] 5-325 Tablet) 1 TAB PO PRN Q6HRS PRN PRN PAIN Ondansetron Hcl (Zofran) 4 MG PO BID PRN PRN NAUSEA/VOMITING Oxycodone Hcl (Oxycodone Hcl) 15 MG PO PRN QID PRN PRN PAIN Miscellaneous Medications Celecoxib (Celecoxib) 200 MG PO (Reported) PCP Follow up with Dr. Mejia in the next 5-7 days Time Spent Total time spent with patient [] minutes for coordination of care, counseling, and education. SHAMIR DICKERSON MD Feb 13, 2017 10:41
== END 2017-02-13 10:40 | disposition left against medical advice (07) | DRG 313 ==
LOC: ER 09:24 → 2 SOUTH 12:28
PROVIDERS: ADMIT Family Medicine; ATTEND Family Medicine
DX: R07.89 Other chest pain (principal); J96.10 Chronic respiratory failure, unspecified whether with hypoxia or hypercapnia; Z68.41 Body mass index [BMI] 40.0-44.9, adult; E11.9 Type 2 diabetes mellitus without complications; E78.00 Pure hypercholesterolemia, unspecified; E78.5 Hyperlipidemia, unspecified; F31.9 Bipolar disorder, unspecified; F41.9 Anxiety disorder, unspecified; G47.33 Obstructive sleep apnea (adult) (pediatric); I50.9 Heart failure, unspecified; I11.0 Hypertensive heart disease with heart failure; I25.10 Atherosclerotic heart disease of native coronary artery without angina pectoris; J44.9 Chronic obstructive pulmonary disease, unspecified; K21.9 Gastro-esophageal reflux disease without esophagitis; F20.9 Schizophrenia, unspecified; F12.90 Cannabis use, unspecified, uncomplicated; M19.90 Unspecified osteoarthritis, unspecified site; E66.9 Obesity, unspecified; R56.9 Unspecified convulsions; F17.200 Nicotine dependence, unspecified, uncomplicated; I25.2 Old myocardial infarction; Z88.8 Allergy status to other drugs, medicaments and biological substances; Z85.3 Personal history of malignant neoplasm of breast; Z85.42 Personal history of malignant neoplasm of other parts of uterus; Z90.710 Acquired absence of both cervix and uterus; Z85.830 Personal history of malignant neoplasm of bone; Z90.49 Acquired absence of other specified parts of digestive tract; Z88.5 Allergy status to narcotic agent; Z90.721 Acquired absence of ovaries, unilateral
CPT/HCPCS: 36415; 71010; 80047; 80048; 80061; 80076; 81001; 82947; 83690; 83880; 84484; 85027; 85610; 85730; 93005; 94640; 94760; G0481; J1815; J2405; J3010; J7620; Q0163; 99285-25

== ENCOUNTER 2017-03-31 12:03 | Emergency (ER) | payer OTHER ==
[~2017-03-31] VITALS: Ht 165.1 cm; Wt 115.2 kg
[~2017-03-31 12:03] MED LIST changes: +CELE-20 PO; +CLIN300C86 PO; +METF-620 PO; -METF10002 PO; -NYST1000 PO; +NYST100054 PO; +PRAZ5CAP2 PO; +QUET400T PO; +TOPI100T90 PO; +TRAZ150T55 PO
[2017-03-31 13:02] VITALS: BP 117/73
--- NOTE | 2017-03-31 13:10 | PHYS DOC ---
Past Medical History Past Medical History: Anxiety, Asthma, Bipolar, Cancer, COPD, Depression, Diabetes-Type II, GERD, High Cholesterol, Hypertension, [place], Seizure, Schizophrenia, Other Additional Past Medical Histor: breast CA, ovarian/uterine CA, bone CA, spinal CA TREATED W/CHEMO & RADIATI Past Surgical History: Appendectomy, Cholecystectomy, , Hysterectomy, Tonsillectomy, Other Additional Past Surgical Histo: Bx lumpectomy, esphogeal dilation,BILAT LUMPECTOMY,HERNIA Alcohol Use: None Drug Use: Marijuana Adult General Chief Complaint Chief Complaint: FOOT INJURY PAIN HPI HPI Patient is a 42 year old female with history of diabetes type 2, hypertension, schizophrenia, bipolar, [place], COPD, anxiety, who presents today with mild right medial foot and slight ankle pain that began today after she fell. She states most of the pain is on the foot. Patient states she has history of frequent falls and her ankle got caught btwn a dresser and a door causing her to fall. Patient denies any loss of consciousness. Review of Systems Review of Systems Constitutional: Denies fever or chills [] Eyes: Denies change in visual acuity, redness, or eye pain [] Musculoskeletal: Right ankle pain and foot pain Integument: Denies rash or skin lesions [] Neurologic: Denies headache, focal weakness or sensory changes [] Endocrine: Denies polyuria or polydipsia [] Allergies Allergies Allergies Coded Allergies Type Severity Reaction Last Updated Verified adhesive Allergy Intermediate rash 02/09/17 Yes adhesive tape Allergy Intermediate Rash 02/09/17 Yes morphine Adverse Reaction Intermediate Itching 02/09/17 Yes Physical Exam Physical Exam Constitutional: Well developed, well nourished, no acute distress, non-toxic appearance. [] HENT: Normocephalic, atraumatic, bilateral external ears normal, oropharynx moist, no oral exudates, nose normal. [] Skin: Warm, dry, no erythema, no rash. [] Back: No tenderness, no CVA tenderness. [] Extremities: Obese patient, Right and foot ankle with small amount soft tissue swelling. Tenderness diffusely on the top of the right the foot, and slight medial ankle tenderness. No pain or tenderness on palpation of the base of the fifth metatarsal or navicular bone of the right foot. Full range of motion to the right foot and right ankle. +2 right pedal pulse. Cap refill less than 2 seconds the right lower extremity. Sensation intact to the right lower extremity. Neurologic: Alert and oriented X 3, normal motor function, normal sensory function, no focal deficits noted. [] Psychologic: Affect normal, judgement normal, mood normal. [] Current Patient Data Vital Signs Vital Signs Date Time Temp Pulse Resp B/P (MAP) Pulse Ox O2 Delivery O2 Flow Rate FiO2 03/31/17 13:02 98.2 90 20 97 Room Air 98.2 EKG EKG [] Radiology/Procedures Radiology/Procedures []PROCEDURE: FOOT RIGHT 3V Right foot radiographs History: Multiple falls over the last 2 days. Pain. Comparison: 07/05/2013. Findings: AP, lateral, and oblique views of the right foot. No acute fracture dislocation is identified. Achilles tendon insertional enthesophyte is seen. Impression: No acute osseous traumatic injury identified. DICTATED and SIGNED BY: EV BLACKMON MD DATE: 03/31/17 9920 CC: CADY HERNANDEZ APRN; NON,STAFF; DERIAN TRINIDAD MD ~ Course & Med Decision Making Course & Med Decision Making Pertinent Labs and Imaging studies reviewed. (See chart for details) Patient is in the ED mostly right foot pain and slight right ankle pain after falling. We did a right foot x-ray which ankle vires, X-rays interpreted by radiologist are negative for any acute findings. Jr wrap was applied to the right foot and ankle by the ED RN. Neurovascular exam done by me is normal, cap refill less than 2 seconds. She has oxycodone at home. She'll be discharged with instructions to continue taking her pain medicine as needed. Anti- inflammatories also recommended. Discharged in stable condition. Dragon Disclaimer Dragon Disclaimer This electronic medical record was generated, in whole or in part, using a voice recognition dictation system. Departure Departure Impression: Primary Impression: Fall from standing Additional Impressions: Right ankle sprain Right foot sprain Disposition: 01 HOME, SELF-CARE Condition: STABLE Referrals: DERIAN TRINIDAD MD (PCP) ALEX SCHWAB MD Follow-up in one week if pain continues Patient Instructions: Ankle Sprain, Fall Prevention and Home Safety, Foot Sprain-Brief Additional Instructions: You were seen for right foot and ankle sprain. Ice and elevate the extremity. Wear the Jr wrap as needed and tolerated. Take [id number] pain relievers as needed for pain. Follow-up with your own doctor or the provided orthopedic doctor in one week if pain continues. Problem Qualifiers Primary Impression: Fall from standing Encounter type: initial encounter Qualified Codes: W19.XXXA - Unspecified fall, initial encounter Additional Impressions: Right ankle sprain Encounter type: initial encounter Involved ligament of ankle: unspecified ligament Qualified Codes: S93.401A - Sprain of unspecified ligament of right ankle, initial encounter Right foot sprain Encounter type: initial encounter Qualified Codes: S93.601A - Unspecified sprain of right foot, initial encounter CADY HERNANDEZ SHEET TAKER Mar 31, 2017 13:10
== END 2017-03-31 13:35 | disposition home or self-care (01) ==
LOC: ER 12:03
DX: S93.401A Sprain of unspecified ligament of right ankle, initial encounter (principal); S93.601A Unspecified sprain of right foot, initial encounter; F41.9 Anxiety disorder, unspecified; J44.9 Chronic obstructive pulmonary disease, unspecified; F31.9 Bipolar disorder, unspecified; E11.9 Type 2 diabetes mellitus without complications; K21.9 Gastro-esophageal reflux disease without esophagitis; E78.00 Pure hypercholesterolemia, unspecified; I10 Essential (primary) hypertension; I25.2 Old myocardial infarction; F20.9 Schizophrenia, unspecified; F12.10 Cannabis abuse, uncomplicated; Z90.49 Acquired absence of other specified parts of digestive tract; Z90.710 Acquired absence of both cervix and uterus; Z91.81 History of falling; Z88.5 Allergy status to narcotic agent; Z91.048 Other nonmedicinal substance allergy status; W18.39XA Other fall on same level, initial encounter; Y93.89 Activity, other specified; Y92.89 Other specified places as the place of occurrence of the external cause; Y99.8 Other external cause status
CPT/HCPCS: 73630; 99284

== ENCOUNTER 2017-04-25 16:07 | Emergency (ER) | payer OTHER ==
[~2017-04-25] VITALS: Ht 162.6 cm; Wt 114.8 kg
[~2017-04-25 16:07] MED LIST changes: -BUPR1PAT TD; +BUPR1PAT7 TD; +CLIN300C8 PO; -CLIN300C86 PO; -ERGO500012 PO; +ERGO500027 PO; -HYDR-2666 PO; +HYDR-2758 PO; -KETO15CR TP; +KETO15CR2 TP; +OXYC5CAP PO; -OXYC5CAP3 PO; +TOPI100T8 PO; -TOPI100T90 PO; +TRAZ150T49 PO; -TRAZ150T55 PO
[2017-04-25] MEDS ORDERED: methylPREDNISolone SOD SUCC PF 125 MG/2 ML VIAL. IV ONE (17:15)
[2017-04-25] MEDS ORDERED: ONDANSETRON PF 4 MG/2 ML VIAL. IV ONE (17:15)
[2017-04-25] MEDS ORDERED: IPRATRPIUM/ALBUTEROL 0.5/2.5MG 3 ML NEBU. NEB ONE (17:15)
[2017-04-25] MEDS ORDERED: fentaNYL PF VIAL 100 MCG/2 ML VIAL IV PRN (17:15)
--- NOTE | 2017-04-25 17:34 | PHYS DOC ---
Past Medical History Past Medical History: Anxiety, Asthma, Bipolar, Cancer, COPD, Depression, Diabetes-Type II, GERD, High Cholesterol, Hypertension, [place], Seizure, Schizophrenia, Other Additional Past Medical Histor: breast CA, ovarian/uterine CA, bone CA, spinal CA TREATED W/CHEMO & RADIATI Past Surgical History: Appendectomy, Cholecystectomy, , Hysterectomy, Tonsillectomy, Other Additional Past Surgical Histo: Bx lumpectomy, esphogeal dilation,BILAT LUMPECTOMY,HERNIA Alcohol Use: Rarely Drug Use: Marijuana Adult General Chief Complaint Chief Complaint: SHORTNESS OF BREATH HPI HPI Patient is a 42 year old female who presents with complaint of shortness of breath. Patient states her symptoms started yesterday and have progressively worsened since then. Patient states that she has been having wheezing and difficult to breathing. Patient has been using her nebulized albuterol treatments at home with minimal relief in symptoms. Patient states she last used her treatment an hour prior to arrival. Patient denies any fevers or productive cough associated with her symptoms. Patient is not currently on steroid therapy. Patient follows with Dr. Trinidad for primary care and Dr. Arizmendi for pulmonology. Patient is not having any chest pain. Patient states that she gets worsening shortness of breath with mild exertion at home. Review of Systems Review of Systems Constitutional: Denies fever or chills [] Eyes: Denies change in visual acuity, redness, or eye pain [] HENT: Denies nasal congestion or sore throat [] Respiratory: Shortness of breath, cough [] Cardiovascular: Dyspnea on exertion, denies chest pain or edema [] GI: Denies abdominal pain, nausea, vomiting, bloody stools or diarrhea [] : Denies dysuria or hematuria [] Musculoskeletal: Denies back pain or joint pain [] Integument: Denies rash or skin lesions [] Neurologic: Denies headache, focal weakness or sensory changes [] Current Medications Current Medications Current Medications Medications (Trade) Dose Ordered Sig/Ophelia Start Time Stop Time Status Last Admin Dose Admin Albuterol/ Ipratropium (Duoneb) 6 ml 1X ONCE 04/25/17 17:15 04/25/17 17:16 DC 04/25/17 17:42 6 ML Fentanyl Citrate (Fentanyl 2ml Vial) 50 mcg PRN Q15MIN PRN 6/27/17 17:15 04/25/17 19:07 DC 04/25/17 17:39 50 MCG Methylprednisolone Sodium Succinate (SOLU-Medrol 125MG VIAL) 125 mg 1X ONCE 04/25/17 17:15 04/25/17 17:16 DC 04/25/17 17:31 125 MG Ondansetron HCl (Zofran) 4 mg 1X ONCE 04/25/17 17:15 04/25/17 17:16 DC 04/25/17 17:33 4 MG Allergies Allergies Allergies Coded Allergies Type Severity Reaction Last Updated Verified adhesive Allergy Intermediate rash 02/09/17 Yes adhesive tape Allergy Intermediate Rash 02/09/17 Yes morphine Adverse Reaction Intermediate Itching 02/09/17 Yes Physical Exam Physical Exam Constitutional: Alert, afebrile, obese, appears in mild discomfort [] HENT: Normocephalic, atraumatic, bilateral external ears normal, oropharynx moist, no oral exudates, nose normal. [] Eyes: PERRLA, EOMI, conjunctiva normal, no discharge. [] Neck: Normal range of motion, no tenderness, supple, no stridor. [] Cardiovascular:Heart rate regular rhythm, no murmur [] Lungs & Thorax: Moderately restricted air movement bilaterally, faint expiratory wheezes, no rales [] Abdomen: Bowel sounds normal, soft, no tenderness, no masses, no pulsatile masses. [] Skin: Warm, dry, no erythema, no rash. [] Back: No tenderness, no CVA tenderness. [] Extremities: No tenderness, no cyanosis, no clubbing, ROM intact, no edema. [] Neurologic: Alert and oriented X 3, normal motor function, normal sensory function, no focal deficits noted. [] Current Patient Data Vital Signs Vital Signs Date Time Temp Pulse Resp B/P (MAP) Pulse Ox O2 Delivery O2 Flow Rate FiO2 04/25/17 18:18 96 127/73 (91) 92 Room Air 04/25/17 18:09 22 04/25/17 16:36 99.1 99.1 Lab Values Laboratory Tests Test 04/25/17 17:45 04/25/17 18:27 White Blood Count 9.6 x10^3/uL (4.0-11.0) Red Blood Count 4.52 x10^6/uL (3.50-5.40) Hemoglobin 13.1 g/dL (12.0-15.5) Hematocrit 38.9 % (36.0-47.0) Mean Corpuscular Volume 86 fL (79-100) Mean Corpuscular Hemoglobin 29 pg (25-35) Mean Corpuscular Hemoglobin Concent 34 g/dL (31-37) Red Cell Distribution Width 14.7 % (11.5-14.5) H Platelet Count 255 x10^3/uL (140-400) Neutrophils (%) (Auto) 49 % (31-73) Lymphocytes (%) (Auto) 38 % (24-48) Monocytes (%) (Auto) 6 % (0-9) Eosinophils (%) (Auto) 7 % (0-3) H Basophils (%) (Auto) 1 % (0-3) Neutrophils # (Auto) 4.7 x10^3uL (1.8-7.7) Lymphocytes # (Auto) 3.6 x10^3/uL (1.0-4.8) Monocytes # (Auto) 0.6 x10^3/uL (0.0-1.1) Eosinophils # (Auto) 0.7 x10^3/uL (0.0-0.7) Basophils # (Auto) 0.0 x10^3/uL (0.0-0.2) Sodium Level 141 mmol/L (136-145) Potassium Level 3.6 mmol/L (3.5-5.1) Chloride Level 103 mmol/L (98-107) Carbon Dioxide Level 30 mmol/L (21-32) Anion Gap 8 (6-14) Blood Urea Nitrogen 13 mg/dL (7-20) Creatinine 0.8 mg/dL (0.6-1.0) Estimated GFR (Cockcroft-Gault) 77.9 BUN/Creatinine Ratio 16 (6-20) Glucose Level 176 mg/dL (70-99) H Calcium Level 8.9 mg/dL (8.5-10.1) Total Bilirubin 0.1 mg/dL (0.2-1.0) L Aspartate Amino Transferase (AST) 7 U/L (15-37) L Alanine Aminotransferase (ALT) 12 U/L (14-59) L Alkaline Phosphatase 68 U/L (46-116) Creatine Kinase 52 U/L (26-192) Creatine Kinase MB (Mass) 0.3 ng/mL (0.0-3.6) Creatine Kinase MB Relative Index % (0-4) Troponin I Quantitative < 0.017 ng/mL (0.000-0.055) GY-Eii-W-Type Natriuretic Peptide 44 pg/mL (0-124) Total Protein 6.2 g/dL (6.4-8.2) L Albumin 2.9 g/dL (3.4-5.0) L Albumin/Globulin Ratio 0.9 (1.0-1.7) L Urine Collection Type Unknown Urine Color Yellow Urine Clarity Clear Urine pH 8.0 Urine Specific Lucas >=1.030 Urine Protein 30 mg/dL (NEG-TRACE) Urine Glucose (UA) Negative mg/dL (NEG) Urine Ketones (Stick) 15 mg/dL (NEG) Urine Blood Negative (NEG) Urine Nitrite Negative (NEG) Urine Bilirubin Negative (NEG) Urine Urobilinogen Dipstick 1.0 mg/dL (0.2 mg/dL) Urine Leukocyte Esterase Negative (NEG) Urine RBC 0 /HPF (0-2) Urine WBC 1-4 /HPF (0-4) Urine Squamous Epithelial Cells Mod /LPF Urine Bacteria Moderate /HPF (0-FEW) Urine Mucus Mod /LPF Laboratory Tests 04/25/17 17:45 Laboratory Tests 04/25/17 17:45 EKG EKG Interpreted by me: Heart rate 100, sinus tachycardia, leftward axis, normal intervals, no acute ST/T-wave abnormalities present [] Radiology/Procedures Radiology/Procedures One view AP chest x-ray interpreted by me: No infiltrate, no effusions, normal cardiac silhouette [] Course & Med Decision Making Course & Med Decision Making Pertinent Labs and Imaging studies reviewed. (See chart for details) Patient was given 2 DuoNeb treatments and started on Solu-Medrol in the emergency department. Patient's chest x-ray showed no evidence of pneumonia and patient's blood work is unremarkable at this time. On reevaluation, patient's symptoms have improved at this time. Patient's vital signs are stable. The patient is appropriate for outpatient treatment at this time. Patient will continue on prednisone taper and advised to continue on home albuterol treatments every 4 hours while awake. Recommended follow-up within the next 3 days with patient's primary doctor for reevaluation. Advised return emergency department for any worsening symptoms. Patient voiced understanding and in agreement with treatment plan. Dragon Disclaimer Dragon Disclaimer This electronic medical record was generated, in whole or in part, using a voice recognition dictation system. Departure Departure Impression: Primary Impression: Asthma exacerbation with COPD (chronic obstructive pulmonary disease) Disposition: 01 HOME, SELF-CARE Condition: IMPROVED Referrals: DERIAN TRINIDAD MD (PCP) Patient Instructions: Asthma, Adult Additional Instructions: Follow-up with Dr. Trinidad in the next 2-3 days for reevaluation. Return to the emergency department for any worsening symptoms. Scripts Prednisone (PREDNISONE) 10 Mg Tablet 10 MG PO UD for PREDNISONE TAPER, #39 TAB 0 Refills Take 3 tablets by mouth twice a day for 3 days, then take 2 tablets by mouth twice a day for 3 days, then take 1 tablet by mouth twice a day for 3 days, then take 1 tablet by mouth daily x 3 days, then stop. Prov: DARELL DREW MD 04/25/17 DARELL DREW MD Apr 25, 2017 17:34
[2017-04-25 18:04] LABS: BASO % 1 % (0-3); EOS % 7 % (0-3); HEMATOCRIT 38.9 % (36.0-47.0); HEMOGLOBIN 13.1 g/dL (12.0-15.5); LYMPH # 3.6 x10^3/uL (1.0-4.8); LYMPH % 38 % (24-48); MEAN CORPUSCULAR HEMOGLOBIN 29 pg (25-35); MEAN CORPUSCULAR HGB CONC 34 g/dL (31-37); MEAN CORPUSCULAR VOLUME 86 fL (79-100); MONO % 6 % (0-9); NEUT % 49 % (31-73); PLATELET COUNT 255 x10^3/uL (140-400); RED BLOOD COUNT 4.52 x10^6/uL (3.50-5.40); RED CELL DISTRIBUTION WIDTH 14.7 % (11.5-14.5); WHITE BLOOD COUNT 9.6 x10^3/uL (4.0-11.0)
[2017-04-25 18:23] LABS: CALCIUM 8.9 mg/dL (8.5-10.1); CREATININE 0.8 mg/dL (0.6-1.0); GFR 77.9; POTASSIUM 3.6 mmol/L (3.5-5.1)
[2017-04-25 18:30] LABS: ALBUMIN 2.9 g/dL (3.4-5.0); ALBUMIN/GLOBULIN RATIO 0.9 (1.0-1.7); TOTAL BILIRUBIN 0.1 mg/dL (0.2-1.0); TOTAL PROTEIN 6.2 g/dL (6.4-8.2)
[2017-04-25 18:38] LABS: CREATINE KINASE 52 U/L (26-192)
[2017-04-25 18:39] LABS: CKMB MASS 0.3 ng/mL (0.0-3.6)
[2017-04-25 18:48] VITALS: BP 105/55
[2017-04-25] MEDS ORDERED: PRED-220 PO (18:51)
[2017-04-25 18:54] LABS: BILIRUBIN,URINE NEGATIVE (NEG); GLUCOSE,URINE NEGATIVE (NEG); NITRITE,URINE NEGATIVE (NEG); PROTEIN,URINE 30 mg/dL (NEG-TRACE)
[2017-04-25 19:03] LABS: BACTERIA,URINE MODERATE /HPF (0-FEW); RBC,URINE 0 /HPF (0-2); SQUAMOUS EPITHELIAL CELL,UR MOD /LPF
--- NOTE | 2017-04-26 06:33 | EKG ---
[facility] [address] [place] [address] Test Date: 2017-04-25 Test Time: 16:35:28 Pat Name: EDDY AYALA Department: Room: Gender: F Park Maintainer: : 1975 Requested By: DARELL DREW Order Number: [id number] Reading MD: Yolanda Rodriguez Measurements Intervals [place] Rate: 100 P: 68 VT: 132 QRS: -24 QRSD: 80 T: 55 QT: 368 QTc: 478 Interpretive Statements SINUS RHYTHM LEFTWARD AXIS QRS(T) CONTOUR ABNORMALITY CONSISTENT WITH INFERIOR INFARCT PROBABLY OLD ABNORMAL ECG Electronically Signed On 04-28-2017 21:06:57 CDT by Yolanda Rodriguez
--- NOTE | 2017-04-26 07:24 | RAD ---
Indication: Shortness of air. Time of exam 1730 hours. Correlation is made with prior study from 02/12/2017. FINDINGS: The heart size is normal. The lungs are clear. No pleural effusion or pneumothorax is identified. The pulmonary vascularity is normal. IMPRESSION: No acute abnormality detected.
== END 2017-04-25 19:07 | disposition home or self-care (01) ==
LOC: ER 16:07
DX: J45.901 Unspecified asthma with (acute) exacerbation (principal); J44.9 Chronic obstructive pulmonary disease, unspecified; F41.9 Anxiety disorder, unspecified; F31.9 Bipolar disorder, unspecified; E11.9 Type 2 diabetes mellitus without complications; K21.9 Gastro-esophageal reflux disease without esophagitis; E78.00 Pure hypercholesterolemia, unspecified; I25.2 Old myocardial infarction; I10 Essential (primary) hypertension; F20.9 Schizophrenia, unspecified; F12.10 Cannabis abuse, uncomplicated; Z90.49 Acquired absence of other specified parts of digestive tract; Z90.710 Acquired absence of both cervix and uterus
CPT/HCPCS: 36415; 71010; 80053; 81001; 82553; 83880; 84484; 85027; 87086; 93005; 94250; 94640; 96374; 96375; 99285; J2405; J2930; J3010; J7620

== ENCOUNTER → 2017-04-27 | Day surgery (SDC) | payer OTHER ==
[~2017-04-27] MED LIST changes: +IV RINGERS,LACTATED 1000ML 1,000 ML IV SCH; +LIDOCAINE 1% 1 ML SYRINGE. ID PRN; +ONDANSETRON PF 4 MG/2 ML VIAL. IV PRN; +PRED-220 PO; +PROCHLORPERAZINE 10 MG/2 ML VIAL. IV PRN; +fentaNYL PF VIAL 100 MCG/2 ML VIAL IV PRN
--- NOTE | 2017-04-27 12:55 | PDOC2 ---
GI CONSULT Reason For Consult: Dysphagia HPI: HPI: 42 y/o female w/ dysphagia presents for further evaluation w/ EGD. Dysphagia onset was gradual and felt in the lower esophagus. It occurs most commonly w/ solid foods. She has had previous EGDs w/ esophageal dilations. PMH: PMH: palpitations, AR, OA, anxiety, HTN, dysphagia, PUD, GERD, depression, DM, hemorrhoids, breast cancer, COPD, FELI, h/o colon polyp, HLD, hysterectomy, breast surgery, cholecystectomy, C section FH: Family History: Cancer (breast), CAD, CVA, DM, Hypertension, Other (SLE) Social History: Smoke: <1 pack per day ALCOHOL: none Drugs: Other (in the past) ROS: GEN: Denies fevers, chills, sweats HEENT: Denies blurred vision, sore throat CV: Denies chest pain RESP: Denies shortness of air, cough GI: Per HPI : Denies hematuria, dysuria ENDO: Denies weight changes NEURO: Denies confusion, dizziness MSK: Denies weakness, joint pain/swelling SKIN: Denies jaundice, pruritus Vitals: Vitals: Please see EMR. Allergies: Coded Allergies: adhesive (Verified Allergy, Intermediate, rash, 02/09/17) PAPER TAPE adhesive tape (Verified Allergy, Intermediate, Rash, 02/09/17) morphine (Verified Adverse Reaction, Intermediate, Itching, 02/09/17) Medications: Please see EMR. PE: GEN: NAD HEENT: Atraumatic, PERRL LUNGS: CTAB HEART: RRR ABD: NABS, S/ND/NT EXTREMITY: No edema SKIN: No rashes, no jaundice NEURO/PSYCH: A & O 3 A/P: A/P: Dysphagia -recurrent -- Proceed w/ EGD w/ possible esophageal dilation for further evaluation. Additional recommendations pending findings. LUCILA DUKES Apr 27, 2017 12:55
[2017-04-27 14:47] VITALS: BP 159/82
== END | disposition home or self-care (01) ==
LOC: ENDOS 12:49
PROVIDERS: ATTEND Internal Medicine Gastroenterology
DX: K22.2 Esophageal obstruction (principal); Z86.69 Personal history of other diseases of the nervous system and sense organs; E78.00 Pure hypercholesterolemia, unspecified; I48.91 Unspecified atrial fibrillation; I10 Essential (primary) hypertension; J44.9 Chronic obstructive pulmonary disease, unspecified; J45.909 Unspecified asthma, uncomplicated; Z90.49 Acquired absence of other specified parts of digestive tract; E66.9 Obesity, unspecified; Z68.41 Body mass index [BMI] 40.0-44.9, adult; Z85.3 Personal history of malignant neoplasm of breast; Z85.42 Personal history of malignant neoplasm of other parts of uterus; Z85.43 Personal history of malignant neoplasm of ovary; Z87.39 Personal history of other diseases of the musculoskeletal system and connective tissue; M19.90 Unspecified osteoarthritis, unspecified site; Z86.39 Personal history of other endocrine, nutritional and metabolic disease; E11.9 Type 2 diabetes mellitus without complications; F41.9 Anxiety disorder, unspecified; F32.9 Major depressive disorder, single episode, unspecified; F17.200 Nicotine dependence, unspecified, uncomplicated; Z88.6 Allergy status to analgesic agent; Z91.048 Other nonmedicinal substance allergy status

== ENCOUNTER 2017-05-12 17:41 | Emergency (ER) | payer OTHER ==
[~2017-05-12] VITALS: Ht 162.6 cm; Wt 114.8 kg
[~2017-05-12 17:41] MED LIST changes: -IV RINGERS,LACTATED 1000ML 1,000 ML IV SCH; -LIDOCAINE 1% 1 ML SYRINGE. ID PRN; -ONDANSETRON PF 4 MG/2 ML VIAL. IV PRN; -PROCHLORPERAZINE 10 MG/2 ML VIAL. IV PRN; -fentaNYL PF VIAL 100 MCG/2 ML VIAL IV PRN
[2017-05-12 18:36] LABS: BASO # 0.1 x10^3/uL (0.0-0.2); BASO % 1 % (0-3); EOS % 8 % (0-3); HEMATOCRIT 39.5 % (36.0-47.0); HEMOGLOBIN 13.8 g/dL (12.0-15.5); LYMPH # 4.3 x10^3/uL (1.0-4.8); LYMPH % 37 % (24-48); MEAN CORPUSCULAR HEMOGLOBIN 29 pg (25-35); MEAN CORPUSCULAR HGB CONC 35 g/dL (31-37); MEAN CORPUSCULAR VOLUME 84 fL (79-100); MONO % 7 % (0-9); NEUT % 48 % (31-73); PLATELET COUNT 261 x10^3/uL (140-400); RED BLOOD COUNT 4.72 x10^6/uL (3.50-5.40); RED CELL DISTRIBUTION WIDTH 14.9 % (11.5-14.5); WHITE BLOOD COUNT 11.8 x10^3/uL (4.0-11.0)
[2017-05-12 19:10] LABS: ALBUMIN 3.4 g/dL (3.4-5.0); CALCIUM 9.1 mg/dL (8.5-10.1); CREATININE 0.9 mg/dL (0.6-1.0); TOTAL BILIRUBIN 0.2 mg/dL (0.2-1.0); TOTAL PROTEIN 6.9 g/dL (6.4-8.2)
[2017-05-12 19:12] LABS: POTASSIUM 2.7 mmol/L (3.5-5.1)
[2017-05-12] MEDS ORDERED: POTASSIUM CHLORIDE 20 MEQ TABLET.ER. PO ONE (20:00)
[2017-05-12] MEDS ORDERED: ONDANSETRON ODT 4 MG TAB.RAPDIS. PO ONE (20:00)
[2017-05-12 20:08] VITALS: BP 143/89
--- NOTE | 2017-05-12 20:35 | ED.ADGEN ---
Past Medical History Past Medical History: Anxiety, Asthma, Bipolar, Cancer, COPD, Depression, Diabetes-Type II, GERD, High Cholesterol, Hypertension, [place], Seizure, Schizophrenia, Other Additional Past Medical Histor: breast CA, ovarian/uterine CA, bone CA, spinal CA TREATED W/CHEMO & RADIATI Past Surgical History: Appendectomy, Cholecystectomy, , Hysterectomy, Tonsillectomy, Other Additional Past Surgical Histo: Bx lumpectomy, esphogeal dilation,BILAT LUMPECTOMY,HERNIA Alcohol Use: Rarely Drug Use: Marijuana Adult General Chief Complaint Chief Complaint: DIZZY/LIGHT HEADED HPI HPI Patient is a 42 year old female with history of bipolar, schizophrenia, CAD, [place] , hypertension, seizure disorder, diabetes resents with right scalp paresthesias. Symptom onset was today. Patient denies scalp tenderness, rash or pain. Denies headache, blurred vision, extremity weakness or loss of sensation. Patient has history of migraines, but states they're always on the opposite side. No new medications. No other acute symptoms or complaints. Review of Systems Review of Systems Review symptoms as per history of present illness. All other review symptoms are negative. Current Medications Current Medications Current Medications Medications (Trade) Dose Ordered Sig/Ophelia Start Time Stop Time Status Last Admin Dose Admin Ondansetron HCl (Zofran Odt) 4 mg 1X ONCE 05/12/17 20:00 05/12/17 20:01 DC 05/12/17 20:03 4 MG Potassium Chloride (Klor-Con) 40 meq 1X ONCE 05/12/17 20:00 05/12/17 20:01 DC 05/12/17 20:02 40 MEQ Allergies Allergies Allergies Coded Allergies Type Severity Reaction Last Updated Verified adhesive Allergy Intermediate rash 04/27/17 Yes adhesive tape Allergy Intermediate Rash 04/27/17 Yes morphine Adverse Reaction Intermediate Itching 04/27/17 Yes Physical Exam Physical Exam Constitutional: Well developed, well nourished, no acute distress, non-toxic appearance. HENT: Normocephalic, no scalp tenderness or rash,, bilateral external ears normal, oropharynx moist, no oral exudates, nose normal. Eyes: PERRLA, EOMI. Neck: Normal range of motion, no tenderness. Cardiovascular:Heart rate regular rhythm, no murmur. Lungs & Thorax: Bilateral breath sounds clear to auscultation. Abdomen: Bowel sounds normal, soft, no tenderness, no masses, no pulsatile masses. Skin: Warm, dry, no erythema, no rash. Back: No tenderness. Extremities: No tenderness, no cyanosis, no clubbing, ROM intact, no edema. Neurologic: Alert and oriented X 3, normal motor function, normal sensory function, no focal deficits noted. Psychologic: Affect normal, judgement normal, mood normal. Current Patient Data Vital Signs Vital Signs Date Time Temp Pulse Resp B/P (MAP) Pulse Ox O2 Delivery O2 Flow Rate FiO2 05/12/17 20:08 98 20 143/89 (107) 98 Room Air 05/12/17 17:50 98.4 98.4 Lab Values Laboratory Tests Test 05/12/17 18:03 05/12/17 18:20 Glucose (Fingerstick) 137 mg/dL (70-99) H White Blood Count 11.8 x10^3/uL (4.0-11.0) H Red Blood Count 4.72 x10^6/uL (3.50-5.40) Hemoglobin 13.8 g/dL (12.0-15.5) Hematocrit 39.5 % (36.0-47.0) Mean Corpuscular Volume 84 fL (79-100) Mean Corpuscular Hemoglobin 29 pg (25-35) Mean Corpuscular Hemoglobin Concent 35 g/dL (31-37) Red Cell Distribution Width 14.9 % (11.5-14.5) H Platelet Count 261 x10^3/uL (140-400) Neutrophils (%) (Auto) 48 % (31-73) Lymphocytes (%) (Auto) 37 % (24-48) Monocytes (%) (Auto) 7 % (0-9) Eosinophils (%) (Auto) 8 % (0-3) H Basophils (%) (Auto) 1 % (0-3) Neutrophils # (Auto) 5.7 x10^3uL (1.8-7.7) Lymphocytes # (Auto) 4.3 x10^3/uL (1.0-4.8) Monocytes # (Auto) 0.8 x10^3/uL (0.0-1.1) Eosinophils # (Auto) 0.9 x10^3/uL (0.0-0.7) H Basophils # (Auto) 0.1 x10^3/uL (0.0-0.2) Sodium Level 143 mmol/L (136-145) Potassium Level 2.7 mmol/L (3.5-5.1) *L Chloride Level 105 mmol/L (98-107) Carbon Dioxide Level 26 mmol/L (21-32) Anion Gap 12 (6-14) Blood Urea Nitrogen 2 mg/dL (7-20) L Creatinine 0.9 mg/dL (0.6-1.0) Estimated GFR (Cockcroft-Gault) 68.0 BUN/Creatinine Ratio 2 (6-20) L Glucose Level 134 mg/dL (70-99) H Calcium Level 9.1 mg/dL (8.5-10.1) Total Bilirubin 0.2 mg/dL (0.2-1.0) Aspartate Amino Transferase (AST) 10 U/L (15-37) L Alanine Aminotransferase (ALT) 10 U/L (14-59) L Alkaline Phosphatase 67 U/L (46-116) Creatine Kinase 84 U/L (26-192) Total Protein 6.9 g/dL (6.4-8.2) Albumin 3.4 g/dL (3.4-5.0) Albumin/Globulin Ratio 1.0 (1.0-1.7) Laboratory Tests 05/12/17 18:20 Laboratory Tests 05/12/17 18:20 EKG EKG [EKG: Normal sinus rhythm, left atrial abnormality, prolonged QT C, 489. No other acute symptoms or complaints.] Radiology/Procedures Radiology/Procedures [] Course & Med Decision Making Course & Med Decision Making Pertinent Labs and Imaging studies reviewed. (See chart for details) [Right parietal scalp paresthesias without other complaint. No scalp tenderness or loss of vision. No neurologic deficits evaluation. Suspect placed in the emergency department. No acute EKG findings or arrhythmias. Patient is on Lasix and potassium supplements. She states she is compliant with therapy. She requests discharge from the emergency department does not wish to stay in the hospital. 3 mEq potassium given in the emergency department. Patient's instructed to increase potassium replacement 40 mEq twice daily for the next 5 days and to follow-up with her. PCP in one week for repeat testing. Term precautions reviewed. Patient verbalizes understanding and agreement with discharge instructions prior to departure. ] Dragon Disclaimer Dragon Disclaimer This electronic medical record was generated, in whole or in part, using a voice recognition dictation system. CASS KENT DO May 12, 2017 20:35
--- NOTE | 2017-05-13 10:36 | EKG ---
[facility] [address] [place] [address] Test Date: 2017-05-12 Test Time: 19:27:53 Pat Name: EDDY AYALA Department: Room: Gender: F Chin Strap Maker: : 1975 Requested By: CASS KENT Order Number: [id number] Reading MD: Measurements Intervals [place] Rate: 82 P: 69 GA: 148 QRS: -22 QRSD: 80 T: 40 QT: 416 QTc: 489 Interpretive Statements SINUS RHYTHM LEFT ATRIAL ABNORMALITY LEFTWARD AXIS PROLONGED QT ABNORMAL ECG RI6.01 No previous ECG available for comparison
== END 2017-05-12 20:09 | disposition home or self-care (01) ==
LOC: ER 17:41
DX: R20.8 Other disturbances of skin sensation (principal); E11.9 Type 2 diabetes mellitus without complications; E78.00 Pure hypercholesterolemia, unspecified; F20.9 Schizophrenia, unspecified; F32.9 Major depressive disorder, single episode, unspecified; F41.9 Anxiety disorder, unspecified; G40.909 Epilepsy, unspecified, not intractable, without status epilepticus; I10 Essential (primary) hypertension; I25.10 Atherosclerotic heart disease of native coronary artery without angina pectoris; K21.9 Gastro-esophageal reflux disease without esophagitis; J44.9 Chronic obstructive pulmonary disease, unspecified; F31.9 Bipolar disorder, unspecified; I25.2 Old myocardial infarction; Z90.49 Acquired absence of other specified parts of digestive tract; Z90.710 Acquired absence of both cervix and uterus; F12.10 Cannabis abuse, uncomplicated; Z88.8 Allergy status to other drugs, medicaments and biological substances; Z88.5 Allergy status to narcotic agent
CPT/HCPCS: 36415; 80053; 80164; 82550; 82962; 85027; 93005; 99285; Q0162

== ENCOUNTER → 2017-06-06 | Outpatient (CLI) | payer OTHER ==
[2017-05-12 20:08] VITALS: BP 143/89
--- NOTE | 2017-06-06 09:16 | RAD ---
CT scan of the head without contrast 06/06/2017 Clinical History: Memory loss and migraine headaches.. Technique: Unenhanced, contiguous, 5 mm axial sections were obtained through the head. One or more of the following individualized dose reduction techniques were utilized for this study: 1. Automated exposure control. 2. Adjustment of the mA and/or kV according to patient size. 3. Use of iterative reconstruction technique. Findings: Comparison study is dated 11/17/2016. There is generalized parenchymal atrophy. Small scattered areas of decreased attenuation are seen within the periventricular and subcortical white matter of both cerebral hemispheres consistent with areas of small vessel ischemic disease. No acute parenchymal abnormality is seen. No extra-axial fluid collection is noted. No skull fracture is seen. Impression: No acute intracranial abnormality is seen.
== END | disposition home or self-care (01) ==
LOC: CT 13:07
PROVIDERS: ATTEND Psychiatry & Neurology Neurology
DX: G43.909 Migraine, unspecified, not intractable, without status migrainosus (principal); R41.3 Other amnesia
CPT/HCPCS: 70450

== ENCOUNTER 2017-07-18 16:39 | Emergency (ER) | payer OTHER ==
[~2017-07-18] VITALS: Ht 162.6 cm; Wt 114.3 kg
[~2017-07-18 16:39] MED LIST changes: -OXYC5TAB PO; +OXYC5TAB95 PO; +QUIN1TAB17 PO; -QUIN1TAB6 PO
[2017-07-18] MEDS ORDERED: IV NORMAL SALINE 1000ML BAG 1,000 ML IV ONE (18:15)
[2017-07-18 18:21] LABS: BASO # 0.1 x10^3/uL (0.0-0.2); BASO % 1 % (0-3); EOS % 4 % (0-3); HEMATOCRIT 38.4 % (36.0-47.0); HEMOGLOBIN 12.8 g/dL (12.0-15.5); LYMPH % 33 % (24-48); MEAN CORPUSCULAR HEMOGLOBIN 29 pg (25-35); MEAN CORPUSCULAR HGB CONC 33 g/dL (31-37); MEAN CORPUSCULAR VOLUME 87 fL (79-100); MONO % 6 % (0-9); NEUT % 57 % (31-73); PLATELET COUNT 268 x10^3/uL (140-400); RED CELL DISTRIBUTION WIDTH 13.5 % (11.5-14.5); WHITE BLOOD COUNT 12.2 x10^3/uL (4.0-11.0)
[2017-07-18 18:33] LABS: CALCIUM 8.1 mg/dL (8.5-10.1); GFR 60.2; POTASSIUM 3.1 mmol/L (3.5-5.1)
--- NOTE | 2017-07-18 18:58 | EKG ---
[facility] [address] [place] [address] Test Date: 2017-07-18 Test Time: 18:17:34 Pat Name: EDDY AYALA Department: Room: Gender: Female Italian Tutor: : 1975 Requested By: EV MADRIGAL Order Number: [id number] Reading MD: Yolanda Rodriguez Measurements Intervals [place] Rate: 94 P: 71 [place]: 138 QRS: -21 QRSD: 74 T: 30 QT: 396 QTc: 501 Interpretive Statements SINUS RHYTHM LEFTWARD AXIS QRS(T) CONTOUR ABNORMALITY CONSISTENT WITH ANTEROSEPTAL INFARCT AGE UNDETERMINED Electronically Signed On 07-24-2017 10:41:56 CDT by Yolanda Rodriguez
[2017-07-18 19:20] VITALS: BP 110/77
--- NOTE | 2017-07-18 20:44 | PHYS DOC ---
Past Medical History Past Medical History: Anxiety, Asthma, Bipolar, Cancer, COPD, Depression, Diabetes-Type II, GERD, High Cholesterol, Hypertension, [place], Seizure, Schizophrenia, Other Additional Past Medical Histor: breast CA, ovarian/uterine CA, bone CA, spinal CA TREATED W/CHEMO & RADIATI Past Surgical History: Appendectomy, Cholecystectomy, , Hysterectomy, Tonsillectomy, Other Additional Past Surgical Histo: Bx lumpectomy, esphogeal dilation,BILAT LUMPECTOMY,HERNIA Additional Information: PPD Alcohol Use: Occasionally Drug Use: Marijuana Adult General Chief Complaint Chief Complaint: DIZZY/LIGHT HEADED HPI HPI 42-year-old female with a history of anxiety bipolar schizophrenia and lupus now presents emergency department complaining of feeling mildly lightheaded. Patient states she has had decreased by mouth intake. No fevers chills sweats or shaking chills. No chest pain or shortness of breath. She reports that her right thumb nail is sore since she recently had her nails trimmed and someone cut it too short. She also reports 2 small less than 1 cm decubitus ulcers on either buttock which have been sore and for which she is requesting pain medicine no chest pain or shortness of breath specifically no pleuritic pain or productive cough. Review of Systems Review of Systems Constitutional: Denies fever or chills [] Eyes: Denies change in visual acuity, redness, or eye pain [] HENT: Denies nasal congestion or sore throat [] Respiratory: Denies cough or shortness of breath [] Cardiovascular: No additional information not addressed in HPI [] GI: Denies abdominal pain, nausea, vomiting, bloody stools or diarrhea [] : Denies dysuria or hematuria [] Musculoskeletal: Denies back pain or joint pain [] Integument: Denies rash or skin lesions [] Neurologic: Denies headache, focal weakness or sensory changes [] Endocrine: Denies polyuria or polydipsia [] Current Medications Current Medications Current Medications Medications (Trade) Dose Ordered Sig/Ophelia Start Time Stop Time Status Last Admin Dose Admin Sodium Chloride 1,000 ml @ 125 mls/hr 1X ONCE 07/18/17 18:15 07/18/17 20:55 DC 07/18/17 18:23 125 MLS/HR Allergies Allergies Allergies Coded Allergies Type Severity Reaction Last Updated Verified adhesive Allergy Intermediate rash 04/27/17 Yes adhesive tape Allergy Intermediate Rash 04/27/17 Yes morphine Adverse Reaction Intermediate Itching 04/27/17 Yes Physical Exam Physical Exam Morbidly obese 42-year-old female clear lungs regular rate and rhythm benign abdomen normal extremities. 2 subcentimeter days to decubitus ulcers one on each buttock near the gluteal cleft bilaterally with no erythema or fluctuance warmth or crepitus. Constitutional: Well developed, well nourished, no acute distress, non-toxic appearance. [] HENT: Normocephalic, atraumatic, bilateral external ears normal, oropharynx moist, no oral exudates, nose normal. [] Eyes: PERRLA, EOMI, conjunctiva normal, no discharge. [] Neck: Normal range of motion, no tenderness, supple, no stridor. [] Cardiovascular:Heart rate regular rhythm, no murmur [] Lungs & Thorax: Bilateral breath sounds clear to auscultation [] Abdomen: Bowel sounds normal, soft, no tenderness, no masses, no pulsatile masses. [] Skin: Warm, dry, no erythema, no rash. [] Back: No tenderness, no CVA tenderness. [] Extremities: No tenderness, no cyanosis, no clubbing, ROM intact, no edema. [] Neurologic: Alert and oriented X 3, normal motor function, normal sensory function, no focal deficits noted. [] Psychologic: Affect normal, judgement normal, mood normal. [] Current Patient Data Vital Signs Vital Signs Date Time Temp Pulse Resp B/P (MAP) Pulse Ox O2 Delivery O2 Flow Rate FiO2 07/18/17 19:20 102 110/77 (88) 96 Room Air 07/18/17 17:10 98.3 20 98.3 Lab Values Laboratory Tests Test 07/18/17 18:10 White Blood Count 12.2 x10^3/uL (4.0-11.0) H Red Blood Count 4.40 x10^6/uL (3.50-5.40) Hemoglobin 12.8 g/dL (12.0-15.5) Hematocrit 38.4 % (36.0-47.0) Mean Corpuscular Volume 87 fL (79-100) Mean Corpuscular Hemoglobin 29 pg (25-35) Mean Corpuscular Hemoglobin Concent 33 g/dL (31-37) Red Cell Distribution Width 13.5 % (11.5-14.5) Platelet Count 268 x10^3/uL (140-400) Neutrophils (%) (Auto) 57 % (31-73) Lymphocytes (%) (Auto) 33 % (24-48) Monocytes (%) (Auto) 6 % (0-9) Eosinophils (%) (Auto) 4 % (0-3) H Basophils (%) (Auto) 1 % (0-3) Neutrophils # (Auto) 6.9 x10^3uL (1.8-7.7) Lymphocytes # (Auto) 4.0 x10^3/uL (1.0-4.8) Monocytes # (Auto) 0.7 x10^3/uL (0.0-1.1) Eosinophils # (Auto) 0.5 x10^3/uL (0.0-0.7) Basophils # (Auto) 0.1 x10^3/uL (0.0-0.2) D-Dimer (Margarita) 0.40 ug/mlFEU (0.00-0.50) Sodium Level 139 mmol/L (136-145) Potassium Level 3.1 mmol/L (3.5-5.1) L Chloride Level 102 mmol/L (98-107) Carbon Dioxide Level 26 mmol/L (21-32) Anion Gap 11 (6-14) Blood Urea Nitrogen 13 mg/dL (7-20) Creatinine 1.0 mg/dL (0.6-1.0) Estimated GFR (Cockcroft-Gault) 60.2 Glucose Level 251 mg/dL (70-99) H Calcium Level 8.1 mg/dL (8.5-10.1) L Troponin I Quantitative < 0.017 ng/mL (0.000-0.055) Laboratory Tests 07/18/17 18:10 Laboratory Tests 07/18/17 18:10 EKG EKG EKG with normal sinus rhythm at 94 left axis deviation no STEMI interpreted by me[] Radiology/Procedures Radiology/Procedures Chest x-ray no acute disease interpreted by me[] Course & Med Decision Making Course & Med Decision Making Pertinent Labs and Imaging studies reviewed. (See chart for details) Signs and symptoms consistent with suspected mild dehydration. EKG and chest x- ray unremarkable. Labs benign. Patient with clearly contributory anxiety component with a history of anxiety bipolar and schizophrenia no clinical evidence of infection of her decubitus ulcers. After hydration patient asymptomatic and unwilling to wait for remainder of evaluation or discharge injections. Patient sign out AGAINST MEDICAL ADVICE she said she felt fine and wanted to go home. [] Dragon Disclaimer Dragon Disclaimer This electronic medical record was generated, in whole or in part, using a voice recognition dictation system. Departure Departure Impression: Primary Impression: Pressure ulcer Additional Impressions: Left against medical advice Dizziness Mild dehydration Hypokalemia Disposition: 07 AGAINST MEDICAL ADVICE Condition: STABLE Referrals: DERIAN TRINIDAD MD (PCP) Problem Qualifiers EV MADRIGAL MD Jul 18, 2017 20:44
--- NOTE | 2017-07-19 08:55 | RAD ---
Portable chest, 07/18/2017: History: Dizziness, lightheadedness Comparison is made to a study from 04/25/2017. The heart size and pulmonary vascularity are normal. No pulmonary infiltrates are seen. There is no evidence of pleural fluid. IMPRESSION: No acute cardiopulmonary abnormality is detected.
[2017-07-24] MEDS ORDERED: PRED-220 PO (10:22)
[2017-07-24] MEDS ORDERED: AZIT250T6 PO (10:22)
[2017-07-24] MEDS ORDERED: ACET-704 PO (10:22)
== END 2017-07-18 19:40 | disposition left against medical advice (07) ==
LOC: ER 16:39
DX: L89.319 Pressure ulcer of right buttock, unspecified stage (principal); L89.329 Pressure ulcer of left buttock, unspecified stage; R42 Dizziness and giddiness; E86.0 Dehydration; E87.6 Hypokalemia; E11.9 Type 2 diabetes mellitus without complications; I25.2 Old myocardial infarction; J44.9 Chronic obstructive pulmonary disease, unspecified; E78.00 Pure hypercholesterolemia, unspecified; F20.9 Schizophrenia, unspecified; I10 Essential (primary) hypertension; K21.9 Gastro-esophageal reflux disease without esophagitis; M32.9 Systemic lupus erythematosus, unspecified; Z85.42 Personal history of malignant neoplasm of other parts of uterus; Z85.3 Personal history of malignant neoplasm of breast; Z88.5 Allergy status to narcotic agent; Z88.8 Allergy status to other drugs, medicaments and biological substances
CPT/HCPCS: 36415; 71010; 80048; 84484; 85025; 85379; 93005; 96360; 99285; J7030

== ENCOUNTER 2017-08-16 02:21 | Emergency (ER) | payer OTHER ==
[~2017-08-16 02:21] MED LIST changes: +ACET-704 PO; +BUPR1PAT8 TP; +INSU100C SQ; +NITR0.4T22 SL; +OMEP20TA63 PO
[2017-08-16 02:36] VITALS: BP 136/78
[2017-08-16 03:43] LABS: BASO # 0.1 x10^3/uL (0.0-0.2); BASO % 1 % (0-3); EOS % 5 % (0-3); HEMATOCRIT 39.3 % (36.0-47.0); HEMOGLOBIN 13.1 g/dL (12.0-15.5); LYMPH # 4.4 x10^3/uL (1.0-4.8); LYMPH % 40 % (24-48); MEAN CORPUSCULAR HEMOGLOBIN 29 pg (25-35); MEAN CORPUSCULAR HGB CONC 33 g/dL (31-37); MEAN CORPUSCULAR VOLUME 88 fL (79-100); MONO % 4 % (0-9); NEUT % 49 % (31-73); PLATELET COUNT 222 x10^3/uL (140-400); RED BLOOD COUNT 4.49 x10^6/uL (3.50-5.40); RED CELL DISTRIBUTION WIDTH 14.4 % (11.5-14.5); WHITE BLOOD COUNT 10.8 x10^3/uL (4.0-11.0)
[2017-08-16 03:55] LABS: CALCIUM 8.6 mg/dL (8.5-10.1); CREATININE 0.9 mg/dL (0.6-1.0); POTASSIUM 3.9 mmol/L (3.5-5.1)
[2017-08-16 04:00] LABS: BILIRUBIN,URINE SMALL (NEG); GLUCOSE,URINE >=1000 mg/dL (NEG); NITRITE,URINE NEGATIVE (NEG); PROTEIN,URINE NEGATIVE (NEG-TRACE)
[2017-08-16 04:01] LABS: ALBUMIN 2.7 g/dL (3.4-5.0); ALBUMIN/GLOBULIN RATIO 0.8 (1.0-1.7); TOTAL BILIRUBIN 0.1 mg/dL (0.2-1.0); TOTAL PROTEIN 6.1 g/dL (6.4-8.2)
--- NOTE | 2017-08-16 04:02 | PHYS DOC ---
Past Medical History Past Medical History: Anxiety, Asthma, Bipolar, Cancer, COPD, Depression, Diabetes-Type II, GERD, High Cholesterol, Hypertension, [place], Seizure, Schizophrenia, Other Additional Past Medical Histor: breast CA, ovarian/uterine CA, bone CA, spinal CA TREATED W/CHEMO & RADIATI Past Surgical History: Appendectomy, Cholecystectomy, , Hysterectomy, Tonsillectomy, Other Additional Past Surgical Histo: Bx lumpectomy, esphogeal dilation,BILAT LUMPECTOMY,HERNIA Alcohol Use: Occasionally Drug Use: Marijuana Adult General Chief Complaint Chief Complaint: GENERALIZED BODY ACHES HPI HPI Patient is a 42 year old F who presents with a lupus flareup. Patient states that she's having a lupus flareup and is unable to sleep for the past 3 nights. Patient's PCP said that if he gets worse to come the emergency room for further evaluation and management. Patient describes whole body pain in joints hurting which she says is consistent with her lupus. Patient takes pain medication at home for her flareups however does not want pain medication in the emergency room because she drove herself to the emergency room. She denies any fevers. Patient is no other complaints. Review of Systems Review of Systems GEN: Generalized body aches HEENT: Denies blurred vision, sore throat CV: Denies chest pain RESP: Denies shortness of air, cough GI: Denies n/v/d NEURO: Denies confusion, dizziness MSK: Denies weakness, joint pain/swelling Current Medications Current Medications Current Medications Medications (Trade) Dose Ordered Sig/Ophelia Start Time Stop Time Status Last Admin Dose Admin Sodium Chloride 1,000 ml @ 1,000 mls/hr 1X ONCE 08/16/17 05:00 08/16/17 05:59 Allergies Allergies Allergies Coded Allergies Type Severity Reaction Last Updated Verified adhesive Allergy Intermediate rash 04/27/17 Yes adhesive tape Allergy Intermediate Rash 04/27/17 Yes morphine Adverse Reaction Intermediate Itching 04/27/17 Yes Physical Exam Physical Exam GEN.: No apparent distress. Alert and oriented. HEENT: Head is normocephalic, atraumatic NECK: Supple. LUNGS: CTAB. HEART: RRR, S1, S2 present. Peripheral pulses intact ABDOMEN: Soft, nontender. Positive bowel sounds. EXTREMITIES: Without any cyanosis. NEUROLOGIC: Normal speech, normal tone PSYCHIATRIC: Normal affect, normal mood. SKIN: No ulcerations Current Patient Data Vital Signs Vital Signs Date Time Temp Pulse Resp B/P (MAP) Pulse Ox O2 Delivery O2 Flow Rate FiO2 08/16/17 02:36 98.4 94 29 136/78 (97) 95 Room Air 98.4 Lab Values Laboratory Tests Test 08/16/17 03:34 08/16/17 03:51 White Blood Count 10.8 x10^3/uL (4.0-11.0) Red Blood Count 4.49 x10^6/uL (3.50-5.40) Hemoglobin 13.1 g/dL (12.0-15.5) Hematocrit 39.3 % (36.0-47.0) Mean Corpuscular Volume 88 fL (79-100) Mean Corpuscular Hemoglobin 29 pg (25-35) Mean Corpuscular Hemoglobin Concent 33 g/dL (31-37) Red Cell Distribution Width 14.4 % (11.5-14.5) Platelet Count 222 x10^3/uL (140-400) Neutrophils (%) (Auto) 49 % (31-73) Lymphocytes (%) (Auto) 40 % (24-48) Monocytes (%) (Auto) 4 % (0-9) Eosinophils (%) (Auto) 5 % (0-3) H Basophils (%) (Auto) 1 % (0-3) Neutrophils # (Auto) 5.3 x10^3uL (1.8-7.7) Lymphocytes # (Auto) 4.4 x10^3/uL (1.0-4.8) Monocytes # (Auto) 0.5 x10^3/uL (0.0-1.1) Eosinophils # (Auto) 0.5 x10^3/uL (0.0-0.7) Basophils # (Auto) 0.1 x10^3/uL (0.0-0.2) Sodium Level 140 mmol/L (136-145) Potassium Level 3.9 mmol/L (3.5-5.1) Chloride Level 103 mmol/L (98-107) Carbon Dioxide Level 27 mmol/L (21-32) Anion Gap 10 (6-14) Blood Urea Nitrogen 8 mg/dL (7-20) Creatinine 0.9 mg/dL (0.6-1.0) Estimated GFR (Cockcroft-Gault) 68.0 BUN/Creatinine Ratio 9 (6-20) Glucose Level 318 mg/dL (70-99) H Calcium Level 8.6 mg/dL (8.5-10.1) Total Bilirubin 0.1 mg/dL (0.2-1.0) L Aspartate Amino Transferase (AST) 9 U/L (15-37) L Alanine Aminotransferase (ALT) 12 U/L (14-59) L Alkaline Phosphatase 92 U/L (46-116) Total Protein 6.1 g/dL (6.4-8.2) L Albumin 2.7 g/dL (3.4-5.0) L Albumin/Globulin Ratio 0.8 (1.0-1.7) L Lipase 138 U/L (73-393) Urine Collection Type Unknown Urine Color Yellow Urine Clarity Clear Urine pH 6.0 Urine Specific [place] >=1.030 Urine Protein Negative mg/dL (NEG-TRACE) Urine Glucose (UA) >=1000 mg/dL (NEG) Urine Ketones (Stick) 15 mg/dL (NEG) Urine Blood Negative (NEG) Urine Nitrite Negative (NEG) Urine Bilirubin Small (NEG) Urine Urobilinogen Dipstick 1.0 mg/dL (0.2 mg/dL) Urine Leukocyte Esterase Negative (NEG) Urine RBC Occ /HPF (0-2) Urine WBC Occ /HPF (0-4) Urine Squamous Epithelial Cells Mod /LPF Urine Bacteria Few /HPF (0-FEW) Urine Mucus Mod /LPF Laboratory Tests 08/16/17 03:34 Laboratory Tests 08/16/17 03:34 EKG EKG [] Radiology/Procedures Radiology/Procedures [] Course & Med Decision Making Course & Med Decision Making Pertinent Labs and Imaging studies reviewed. (See chart for details) ED course: Patient was seen and examined emergency room after having a long discussion with the patient about her expectations and management of her lupus flareup with decided to do some basic blood work, CBC, BMP, UA and she does not want pain medication should she drove herself to the emergency room. If the blood work is unremarkable patient like to go home. 0432: Patient has declined IV fluids stating that her doctor has just change her diabetes medication and notes her blood sugars and been running high and feels better like to go home. Patient is able to fall asleep in the emergency room. Patient like to be discharged. Commended short-term follow-up with her PCP next one to 2 days. Patient like to be treated for a yeast infection. MDM: After reviewing the chart, CC/HPI/PMH, physical exam, [lab results], I do not believe the patient has emergent medical condition warranting further workup and /or admission at this time. Patient is stable for discharge. Recommended short- term follow-up with PCP in one to 2 days. Recommended better control of her blood sugars. Additional verbal discharge instructions were provided to the patient and that if symptoms get worse or any new symptoms arise that are worrisome to the patient she is to return to the emergency room immediately [] Dragon Disclaimer Dragon Disclaimer This electronic medical record was generated, in whole or in part, using a voice recognition dictation system. Departure Departure Impression: Primary Impression: Lupus Additional Impressions: Hyperglycemia Vaginal candidiasis Disposition: HOME, SELF-CARE Condition: IMPROVED Referrals: DERIAN TRINIDAD MD (PCP) Patient Instructions: Lupus Additional Instructions: Please follow-up with your family physician in the next one to 2 days and return if symptoms increase Scripts Fluconazole (Diflucan) 100 Mg Tablet 100 MG FT 1X for 1 Day, #1 TAB Prov: SAGE FELDER DO 08/16/17 Problem Qualifiers SAGE FELDER DO Aug 16, 2017 04:02
[2017-08-16 04:24] LABS: BACTERIA,URINE FEW /HPF (0-FEW); RBC,URINE OCC /HPF (0-2); WBC,URINE OCC /HPF (0-4)
[2017-08-16 04:25] LABS: SQUAMOUS EPITHELIAL CELL,UR MOD /LPF
[2017-08-16] MEDS ORDERED: FLUC100T FT (04:37)
[2017-08-16] MEDS ORDERED: IV NORMAL SALINE 1000ML BAG 1,000 ML IV ONE (05:00)
== END 2017-08-16 04:48 | disposition home or self-care (01) ==
LOC: ER 02:21
DX: M32.9 Systemic lupus erythematosus, unspecified (principal); E11.65 Type 2 diabetes mellitus with hyperglycemia; B37.3 Candidiasis of vulva and vagina; F20.9 Schizophrenia, unspecified; E78.00 Pure hypercholesterolemia, unspecified; J44.9 Chronic obstructive pulmonary disease, unspecified; K21.9 Gastro-esophageal reflux disease without esophagitis; I25.2 Old myocardial infarction; I10 Essential (primary) hypertension; Z88.8 Allergy status to other drugs, medicaments and biological substances; Z88.5 Allergy status to narcotic agent; Z90.49 Acquired absence of other specified parts of digestive tract; Z90.710 Acquired absence of both cervix and uterus
CPT/HCPCS: 36415; 80053; 81001; 83690; 85025; 99284

== ENCOUNTER → 2017-08-23 | Day surgery (SDC) | payer OTHER ==
[~2017-08-23] MED LIST changes: +FLUC100T FT; +HYDROmorphone 2 MG/ML VIAL IV PRN; +IV RINGERS,LACTATED 1000ML 1,000 ML IV SCH; +LIDOCAINE 1% PF 2 ML VIAL. ID PRN; +LIDOCAINE 2% PF Vial for OR 5 ML VIAL. ONE; +ONDANSETRON PF 4 MG/2 ML VIAL. IV PRN; +PROCHLORPERAZINE 10 MG/2 ML VIAL. IV PRN; +PROPOFOL 20 ML IV ONE; +fentaNYL PF VIAL 100 MCG/2 ML VIAL IV PRN
[2017-08-23 09:47] VITALS: BP 124/80
--- NOTE | 2017-08-23 10:11 | CONS ---
DATE OF CONSULTATION: 08/23/2017 DATE OF SERVICE: 08/23/2017 REASON FOR CONSULTATION: Dysphagia, history of lupus. HISTORY OF PRESENT ILLNESS: A 42-year-old female whose past medical history is significant for palpitations, status post VA, osteoarthritis, hypertension, dysphagia, reflux, depression, diabetes, breast cancer, COPD, seen for intermittent dysphagia with food sticking in the substernal location. She had previous dilatations. She was diagnosed with lupus as does her sister and her mother, and she possibly has CREST syndrome. PAST MEDICAL HISTORY: SLE, palpitations, VA, breast cancer, gastric ulcers, hyperlipidemia, history of colonic polyps. ALLERGIES: ADHESIVE TAPES and MORPHINE. MEDICATIONS: Please refer to MAR. REVIEW OF SYSTEMS: Per records. PHYSICAL EXAMINATION: GENERAL: Reveals a well-nourished, well-developed female. VITAL SIGNS: Temperature is 97, pulse 107, respirations 20. HEENT: Normocephalic and atraumatic head. Pupils and extraocular muscles not tested. Sclerae are icteric. NECK: Supple. LUNGS: Clear. CARDIOVASCULAR: Reveals an S1, S2 without S3, S4 or appreciable murmur. ABDOMEN: Reveals a soft abdomen, normal bowel sounds, without appreciable hepatosplenomegaly. EXTREMITIES: Reveals no cyanosis, clubbing or edema. IMPRESSION: Dysphagia, most likely either lupus or CREST syndrome. Recommend EGD with possible dilatation. Risks and benefits have been previously discussed with the patient including the risk of perforation. She is willing to proceed at this time. SANTA FAULKNER MD DR: JOSE/slade JOB#: [id number] / [id number]
== END | disposition home or self-care (01) ==
LOC: ENDOS 08:07
PROVIDERS: ATTEND Internal Medicine Gastroenterology
DX: K29.50 Unspecified chronic gastritis without bleeding (principal); K22.2 Esophageal obstruction; E78.00 Pure hypercholesterolemia, unspecified; J44.9 Chronic obstructive pulmonary disease, unspecified; E66.9 Obesity, unspecified; F41.9 Anxiety disorder, unspecified; F32.9 Major depressive disorder, single episode, unspecified; F17.200 Nicotine dependence, unspecified, uncomplicated; Z90.49 Acquired absence of other specified parts of digestive tract; Z86.39 Personal history of other endocrine, nutritional and metabolic disease; Z90.710 Acquired absence of both cervix and uterus; Z87.39 Personal history of other diseases of the musculoskeletal system and connective tissue; Z88.6 Allergy status to analgesic agent; Z91.048 Other nonmedicinal substance allergy status
CPT/HCPCS: 43235; 43450; J2704; J2001

== ENCOUNTER 2017-08-24 05:12 | Emergency (ER) | payer OTHER ==
[~2017-08-24 05:12] MED LIST changes: -HYDROmorphone 2 MG/ML VIAL IV PRN; -IV RINGERS,LACTATED 1000ML 1,000 ML IV SCH; -LIDOCAINE 1% PF 2 ML VIAL. ID PRN; -LIDOCAINE 2% PF Vial for OR 5 ML VIAL. ONE; -ONDANSETRON PF 4 MG/2 ML VIAL. IV PRN; -PROCHLORPERAZINE 10 MG/2 ML VIAL. IV PRN; -PROPOFOL 20 ML IV ONE; -fentaNYL PF VIAL 100 MCG/2 ML VIAL IV PRN
[2017-08-24] MEDS ORDERED: IPRATRPIUM/ALBUTEROL 0.5/2.5MG 3 ML NEBU. NEB ONE (05:30)
--- NOTE | 2017-08-24 05:33 | PHYS DOC ---
Past Medical History Past Medical History: Anxiety, Asthma, Bipolar, Cancer, COPD, Depression, Diabetes-Type II, GERD, High Cholesterol, Hypertension, [place], Seizure, Schizophrenia, Other Additional Past Medical Histor: breast CA, ovarian/uterine CA, bone CA, spinal CA TREATED W/CHEMO & RADIATI Past Surgical History: Appendectomy, Cholecystectomy, , Hysterectomy, Tonsillectomy, Other Additional Past Surgical Histo: Bx lumpectomy, esphogeal dilation,BILAT LUMPECTOMY,HERNIA Alcohol Use: Occasionally Drug Use: Marijuana Adult General Chief Complaint Chief Complaint: SHORTNESS OF BREATH HPI HPI Patient is a 42 year old female who presents with one day history of increasing shortness of breath and wheezing taking frequent breathing treatments ; no known exacerbating cause; denies chest pain fever. Take supplemental oxygen part of the day and evening and at night. History of asthma/COPD, lupus, CHF, diabetes. Continues to smoke tobacco. Patient is a rather bizarre and unreliable historian. Patient reports being diagnosed with a blood clot 2 months ago but does not take anticoagulants and review of the medical records demonstrates that the patient was in fact ruled out for having a blood clot. She also reports at times taking steroids and Z-Paks but is unable to give me any reliable coherent history. Review of Systems Review of Systems Constitutional: Denies fever or chills [] Eyes: Denies change in visual acuity, redness, or eye pain [] HENT: Denies nasal congestion or sore throat [] Respiratory: Denies cough or shortness of breath [] Cardiovascular: No additional information not addressed in HPI [] GI: Denies abdominal pain, nausea, vomiting, bloody stools or diarrhea [] : Denies dysuria or hematuria [] Musculoskeletal: Denies back pain or joint pain [] Integument: Denies rash or skin lesions [] Neurologic: Denies headache, focal weakness or sensory changes [] Endocrine: Denies polyuria or polydipsia [] Current Medications Current Medications Current Medications Medications (Trade) Dose Ordered Sig/Ophelia Start Time Stop Time Status Last Admin Dose Admin Albuterol/ Ipratropium (Duoneb) 3 ml 1X ONCE 08/24/17 05:30 08/24/17 05:32 DC 08/24/17 05:22 3 ML Methylprednisolone Sodium Succinate (SOLU-Medrol 125MG VIAL) 125 mg 1X ONCE 08/24/17 06:00 08/24/17 06:01 DC 08/24/17 05:59 125 MG Allergies Allergies Allergies Coded Allergies Type Severity Reaction Last Updated Verified adhesive Allergy Intermediate rash 08/23/17 Yes adhesive tape Allergy Intermediate Rash 08/23/17 Yes morphine Adverse Reaction Intermediate Itching 08/23/17 Yes Physical Exam Physical Exam Constitutional: Well developed, well nourished, minimal acute distress, non- toxic appearance. [] HENT: Normocephalic, atraumatic, bilateral external ears normal, oropharynx moist, no oral exudates, nose normal. [] Eyes: PERRLA, EOMI, conjunctiva normal, no discharge. [] Neck: Normal range of motion, no tenderness, supple, no stridor. [] Cardiovascular:Heart rate tachycardia, regular rhythm, no murmur [] Lungs & Thorax: Bilateral breath sounds clear to auscultation [] Abdomen: Bowel sounds normal, soft, no tenderness, no masses, no pulsatile masses. [] Skin: Warm, dry, no erythema, no rash. [] Back: No tenderness, no CVA tenderness. [] Extremities: No tenderness, no cyanosis, no clubbing, ROM intact, trace edema. [ ] Neurologic: Alert and oriented X 3, normal motor function, normal sensory function, no focal deficits noted. [] Psychologic: Affect normal, judgement normal, mood normal. [] Current Patient Data Vital Signs Vital Signs Date Time Temp Pulse Resp B/P (MAP) Pulse Ox O2 Delivery O2 Flow Rate FiO2 08/24/17 05:23 97 Room Air 08/24/17 05:15 98.3 114 22 161/99 (119) 98.3 Lab Values Laboratory Tests Test 08/24/17 05:34 White Blood Count 11.4 x10^3/uL (4.0-11.0) H Red Blood Count 4.99 x10^6/uL (3.50-5.40) Hemoglobin 14.4 g/dL (12.0-15.5) Hematocrit 42.8 % (36.0-47.0) Mean Corpuscular Volume 86 fL (79-100) Mean Corpuscular Hemoglobin 29 pg (25-35) Mean Corpuscular Hemoglobin Concent 34 g/dL (31-37) Red Cell Distribution Width 14.6 % (11.5-14.5) H Platelet Count 324 x10^3/uL (140-400) Neutrophils (%) (Auto) 49 % (31-73) Lymphocytes (%) (Auto) 41 % (24-48) Monocytes (%) (Auto) 5 % (0-9) Eosinophils (%) (Auto) 5 % (0-3) H Basophils (%) (Auto) 0 % (0-3) Neutrophils # (Auto) 5.5 x10^3uL (1.8-7.7) Lymphocytes # (Auto) 4.7 x10^3/uL (1.0-4.8) Monocytes # (Auto) 0.5 x10^3/uL (0.0-1.1) Eosinophils # (Auto) 0.6 x10^3/uL (0.0-0.7) Basophils # (Auto) 0.0 x10^3/uL (0.0-0.2) Laboratory Tests 08/24/17 05:34 EKG EKG Sinus tachycardia rate of 113 no STEMI QTC 461, very poor data quality my interpretation[] Radiology/Procedures Radiology/Procedures Chest x-ray[] negative for acute cardiopulmonary process, no cardiomegaly no infiltrates my interpretation Course & Med Decision Making Course & Med Decision Making Pertinent Labs and Imaging studies reviewed. (See chart for details) [Plan to give breathing treatments steroids and get a chest x-ray to exclude CHF or pneumonia. Obtain labs to evaluate cardiac enzymes, electrolytes/glucose and kidney function given her history of lupus and diabetes. Reexamination at 0 5:40 AM: Patient's wheezing is less but still hear faint wheezes. Chest x-ray was unremarkable. Labs are pending at this time. Examination 0 555 AM patient feels improved and is wanting to go home.eyes to increase prednisone from 40 mg a day to 60 mg a day and follow up within the next 2-3 days with her primary care physician] Mirtha Disclaimer Dragon Disclaimer This electronic medical record was generated, in whole or in part, using a voice recognition dictation system. Departure Departure Impression: Primary Impression: Asthma exacerbation with COPD (chronic obstructive pulmonary disease) Disposition: HOME, SELF-CARE Condition: IMPROVED Referrals: DERIAN TRINIDAD MD (PCP) DARELL SHAW MD Aug 24, 2017 05:33
[2017-08-24 05:44] LABS: BASO % 0 % (0-3); EOS % 5 % (0-3); HEMATOCRIT 42.8 % (36.0-47.0); HEMOGLOBIN 14.4 g/dL (12.0-15.5); LYMPH # 4.7 x10^3/uL (1.0-4.8); LYMPH % 41 % (24-48); MEAN CORPUSCULAR HEMOGLOBIN 29 pg (25-35); MEAN CORPUSCULAR HGB CONC 34 g/dL (31-37); MEAN CORPUSCULAR VOLUME 86 fL (79-100); MONO % 5 % (0-9); NEUT % 49 % (31-73); PLATELET COUNT 324 x10^3/uL (140-400); RED BLOOD COUNT 4.99 x10^6/uL (3.50-5.40); RED CELL DISTRIBUTION WIDTH 14.6 % (11.5-14.5); WHITE BLOOD COUNT 11.4 x10^3/uL (4.0-11.0)
[2017-08-24] MEDS ORDERED: methylPREDNISolone SOD SUCC PF 125 MG/2 ML VIAL. IV ONE (06:00)
[2017-08-24 06:06] LABS: CALCIUM 9.1 mg/dL (8.5-10.1); CREATININE 0.9 mg/dL (0.6-1.0); POTASSIUM 3.8 mmol/L (3.5-5.1)
[2017-08-24 06:11] LABS: ALBUMIN 3.2 g/dL (3.4-5.0); ALBUMIN/GLOBULIN RATIO 0.9 (1.0-1.7); TOTAL BILIRUBIN 0.2 mg/dL (0.2-1.0); TOTAL PROTEIN 6.7 g/dL (6.4-8.2)
[2017-08-24 06:15] VITALS: BP 157/93
--- NOTE | 2017-08-24 07:15 | RAD ---
Portable chest, 08/24/2017: History: Cough, dyspnea The heart size and pulmonary vascularity are normal. The lungs are clear. There is no evidence of pleural fluid. IMPRESSION: No acute cardiopulmonary abnormality is detected.
--- NOTE | 2017-08-24 07:27 | EKG ---
[facility] [address] [place] [address] Test Date: 2017-08-24 Test Time: 05:18:36 Pat Name: EDDY AYALA Department: Room: Gender: F Log Check Scaler: : 1975 Requested By: DARELL SHAW Order Number: [id number] Reading MD: Yolanda Rodriguez Measurements Intervals [place] Rate: 113 P: 71 RI: 132 QRS: -24 QRSD: 70 T: 50 QT: 332 QTc: 461 Interpretive Statements SINUS TACHYCARDIA LEFTWARD AXIS LOW LIMB LEAD VOLTAGE QRS(T) CONTOUR ABNORMALITY CONSISTENT WITH ANTEROSEPTAL INFARCT PROBABLY OLD ABNORMAL ECG Electronically Signed On 08-26-2017 15:17:18 CDT by Yolanda Rodriguez
== END 2017-08-24 06:25 | disposition home or self-care (01) ==
LOC: ER 05:12
DX: J45.901 Unspecified asthma with (acute) exacerbation (principal); J44.9 Chronic obstructive pulmonary disease, unspecified; F41.9 Anxiety disorder, unspecified; F31.9 Bipolar disorder, unspecified; F32.9 Major depressive disorder, single episode, unspecified; E11.9 Type 2 diabetes mellitus without complications; K21.9 Gastro-esophageal reflux disease without esophagitis; E78.00 Pure hypercholesterolemia, unspecified; I11.0 Hypertensive heart disease with heart failure; I50.9 Heart failure, unspecified; I25.2 Old myocardial infarction; F20.9 Schizophrenia, unspecified; M32.9 Systemic lupus erythematosus, unspecified; F17.200 Nicotine dependence, unspecified, uncomplicated; Z88.5 Allergy status to narcotic agent; Z91.048 Other nonmedicinal substance allergy status
CPT/HCPCS: 36415; 71010; 80053; 84484; 85025; 93005; 94250; 94640; 96374; 99285; J2930; J7620

== ENCOUNTER 2017-09-11 21:54 | Emergency (ER) | payer OTHER ==
[~2017-09-11] VITALS: Ht 162.6 cm; Wt 115.2 kg
[2017-09-11] MEDS ORDERED: IV NORMAL SALINE 1000ML BAG 1,000 ML IV ONE ×2 (23:00)
[2017-09-11 23:25] LABS: POTASSIUM ISTAT 3.8 mmol/L (3.5-5.0)
[2017-09-11 23:39] LABS: BASO # 0.1 x10^3/uL (0.0-0.2); BASO % 1 % (0-3); EOS % 5 % (0-3); HEMATOCRIT 42.5 % (36.0-47.0); HEMOGLOBIN 14.2 g/dL (12.0-15.5); LYMPH % 33 % (24-48); MEAN CORPUSCULAR HEMOGLOBIN 29 pg (25-35); MEAN CORPUSCULAR HGB CONC 33 g/dL (31-37); MEAN CORPUSCULAR VOLUME 86 fL (79-100); MONO % 4 % (0-9); NEUT % 57 % (31-73); PLATELET COUNT 274 x10^3/uL (140-400); RED BLOOD COUNT 4.96 x10^6/uL (3.50-5.40); RED CELL DISTRIBUTION WIDTH 14.3 % (11.5-14.5); WHITE BLOOD COUNT 15.3 x10^3/uL (4.0-11.0)
[2017-09-11] MEDS ORDERED: KETOROLAC 30 MG/ML INJ. IV ONE (23:45)
[2017-09-12 00:39] VITALS: BP 104/63
[2017-09-12 00:40] LABS: BILIRUBIN,URINE SMALL (NEG); GLUCOSE,URINE NEGATIVE (NEG); NITRITE,URINE NEGATIVE (NEG); PROTEIN,URINE NEGATIVE (NEG-TRACE); UROBILINOGEN,URINE 0.2 mg/dL (0.2 mg/dL)
[2017-09-12] MEDS ORDERED: HYDROmorphone 2 MG/ML VIAL ONE (00:44)
[2017-09-12 00:46] LABS: BACTERIA,URINE 0 /HPF (0-FEW); SQUAMOUS EPITHELIAL CELL,UR MOD /LPF
[2017-09-12] MEDS ORDERED: HYDROmorphone 2 MG/ML VIAL IV ONE (01:00)
--- NOTE | 2017-09-12 01:00 | PHYS DOC ---
Past Medical History Past Medical History: Anxiety, Asthma, Bipolar, Cancer, COPD, Depression, Diabetes-Type II, GERD, High Cholesterol, Hypertension, PR, Seizure, Schizophrenia, Other Additional Past Medical Histor: breast CA, ovarian/uterine CA, bone CA, spinal CA TREATED W/CHEMO & RADIATI Past Surgical History: Appendectomy, Cholecystectomy, , Hysterectomy, Tonsillectomy, Other Additional Past Surgical Histo: Bx lumpectomy, esphogeal dilation,BILAT LUMPECTOMY,HERNIA Alcohol Use: Occasionally Drug Use: Marijuana Adult General Chief Complaint Chief Complaint: GENERALIZED BODY ACHES HPI HPI 42-year-old female with a history of lupus now presents the emergency department concerned that she is having a lupus flare. Patient has body and joint aches. She denies fevers chills sweats or shaking chills. No chest pain or shortness of breath. Denies abdominal pain. She reports normal bowel bladder habits. Patient states her oxycodone tens are giving her subtotal relief as an outpatient and she feels she needs some better pain control. Patient has a history of resting tachycardia and states her heart rate is typically 115 Review of Systems Review of Systems Morbidly obese 42-year-old female in no acute distress smiling comfortable appearing alert communicative and cooperative supple neck clear lungs mild tachycardia at 118. Benign abdomen normal extremities nonfocal neurologic exam Constitutional: Denies fever or chills [] Eyes: Denies change in visual acuity, redness, or eye pain [] HENT: Denies nasal congestion or sore throat [] Respiratory: Denies cough or shortness of breath [] Cardiovascular: No additional information not addressed in HPI [] GI: Denies abdominal pain, nausea, vomiting, bloody stools or diarrhea [] : Denies dysuria or hematuria [] Musculoskeletal: Denies back pain or joint pain [] Integument: Denies rash or skin lesions [] Neurologic: Denies headache, focal weakness or sensory changes [] Endocrine: Denies polyuria or polydipsia [] All other systems were reviewed and found to be within normal limits, except as documented in this note. Current Medications Current Medications Current Medications Medications (Trade) Dose Ordered Sig/Ophelia Start Time Stop Time Status Last Admin Dose Admin Hydromorphone HCl (Dilaudid) 2 mg STK-MED ONCE 09/12/17 00:44 09/12/17 00:45 DC Ketorolac Tromethamine (Toradol) 30 mg 1X ONCE 09/11/17 23:45 09/11/17 23:46 DC 09/11/17 23:35 30 MG Sodium Chloride 1,000 ml @ 999 mls/hr 1X ONCE 09/11/17 23:00 09/12/17 00:00 DC 09/11/17 23:35 999 MLS/HR Allergies Allergies Allergies Coded Allergies Type Severity Reaction Last Updated Verified adhesive Allergy Intermediate rash 08/23/17 Yes adhesive tape Allergy Intermediate Rash 08/23/17 Yes morphine Adverse Reaction Intermediate Itching 08/23/17 Yes Physical Exam Physical Exam Constitutional: Well developed, well nourished, no acute distress, non-toxic appearance. [] HENT: Normocephalic, atraumatic, bilateral external ears normal, oropharynx moist, no oral exudates, nose normal. [] Eyes: PERRLA, EOMI, conjunctiva normal, no discharge. [] Neck: Normal range of motion, no tenderness, supple, no stridor. [] Cardiovascular:Heart rate regular rhythm, no murmur [] Lungs & Thorax: Bilateral breath sounds clear to auscultation [] Abdomen: Bowel sounds normal, soft, no tenderness, no masses, no pulsatile masses. [] Skin: Warm, dry, no erythema, no rash. [] Back: No tenderness, no CVA tenderness. [] Extremities: No tenderness, no cyanosis, no clubbing, ROM intact, no edema. [] Neurologic: Alert and oriented X 3, normal motor function, normal sensory function, no focal deficits noted. [] Psychologic: Affect normal, judgement normal, mood normal. [] Current Patient Data Vital Signs Vital Signs Date Time Temp Pulse Resp B/P (MAP) Pulse Ox O2 Delivery O2 Flow Rate FiO2 09/11/17 22:05 98.7 124 18 129/93 (105) 96 Room Air 98.7 Lab Values Laboratory Tests Test 09/11/17 23:01 09/11/17 23:30 09/12/17 00:10 POC Hemoglobin 15.0 g/dL (12-15) POC Hematocrit 44 % (36-40) H POC Sodium 136 mmol/L (135-145) POC Potassium 3.8 mmol/L (3.5-5.0) POC Chloride 107 mmol/L (98-110) POC Total CO2 20 mmol/L (23-32) L Anion Gap 14 mmol/L (6-14) POC Blood Urea Nitrogen 8 mg/dL (8-26) POC Creatinine 0.7 mg/dL (0.5-1.4) Glucose Level 220 mg/dL (70-99) H POC Ionized Calcium (Joslyn) 1.09 mmol/L (1.13-1.32) L White Blood Count 15.3 x10^3/uL (4.0-11.0) H Red Blood Count 4.96 x10^6/uL (3.50-5.40) Hemoglobin 14.2 g/dL (12.0-15.5) Hematocrit 42.5 % (36.0-47.0) Mean Corpuscular Volume 86 fL (79-100) Mean Corpuscular Hemoglobin 29 pg (25-35) Mean Corpuscular Hemoglobin Concent 33 g/dL (31-37) Red Cell Distribution Width 14.3 % (11.5-14.5) Platelet Count 274 x10^3/uL (140-400) Neutrophils (%) (Auto) 57 % (31-73) Lymphocytes (%) (Auto) 33 % (24-48) Monocytes (%) (Auto) 4 % (0-9) Eosinophils (%) (Auto) 5 % (0-3) H Basophils (%) (Auto) 1 % (0-3) Neutrophils # (Auto) 8.8 x10^3uL (1.8-7.7) H Lymphocytes # (Auto) 5.0 x10^3/uL (1.0-4.8) H Monocytes # (Auto) 0.7 x10^3/uL (0.0-1.1) Eosinophils # (Auto) 0.8 x10^3/uL (0.0-0.7) H Basophils # (Auto) 0.1 x10^3/uL (0.0-0.2) Troponin I Quantitative < 0.017 ng/mL (0.000-0.055) Urine Collection Type U cath Urine Color Yellow Urine Clarity Clear Urine pH 6.0 Urine Specific [place] >=1.030 Urine Protein Negative mg/dL (NEG-TRACE) Urine Glucose (UA) Negative mg/dL (NEG) Urine Ketones (Stick) Trace mg/dL (NEG) Urine Blood Large (NEG) Urine Nitrite Negative (NEG) Urine Bilirubin Small (NEG) Urine Urobilinogen Dipstick 0.2 mg/dL (0.2 mg/dL) Urine Leukocyte Esterase Trace (NEG) Urine RBC 11-20 /HPF (0-2) Urine WBC 1-4 /HPF (0-4) Urine Squamous Epithelial Cells Mod /LPF Urine Bacteria 0 /HPF (0-FEW) Urine Mucus Mod /LPF Laboratory Tests 09/11/17 23:30 Laboratory Tests 09/11/17 23:01 EKG EKG Normal sinus tachycardia at 115 left axis deviation nonspecific ST and T-wave findings no STEMI interpreted by me[] Radiology/Procedures Radiology/Procedures [] Course & Med Decision Making Course & Med Decision Making Pertinent Labs and Imaging studies reviewed. (See chart for details) Signs and symptoms consistent with lupus flare. Patient with no infectious prodrome. She does have a history of resting tachycardia however she reports some decreased by mouth intake because of nausea. IV fluids administered. Basic labs unremarkable except mildly elevated white blood cell count. Patient is on steroids. Urinalysis with microscopic hematuria otherwise unremarkable and not suggestive of infection. Patient has no respirations symptoms to suggest pulmonary infection. She is improved after Toradol and analgesic treatment. Patient stable in ED. No further workup or treatment indicated. Patient agrees with outpatient follow-up and strict return precautions given [] Dragon Disclaimer Dragon Disclaimer This electronic medical record was generated, in whole or in part, using a voice recognition dictation system. Departure Departure Impression: Primary Impression: Lupus (systemic lupus erythematosus) Additional Impressions: Myalgia Mild dehydration Leukocytosis Microscopic hematuria Disposition: HOME, SELF-CARE Referrals: DERIAN TRINIDAD MD (PCP) Additional Instructions: It appears that your symptoms are result of a lupus flare as you described. Rest and drink plenty of fluids. Continue your medications as prescribed. Your white blood cell count was mildly elevated today but your urine does not show any signs of infection. He did have a finding of some microscopic hematuria so follow-up with your doctor for repeat urinalysis will be appropriate. He did not have anemia and your laboratory results are otherwise unremarkable. Continue your outpatient pain control regimen and follow-up with your doctor tomorrow for reevaluation and further workup and treatment as needed. Problem Qualifiers EV MADRIGAL MD Sep 12, 2017:00
--- NOTE | 2017-09-12 08:06 | EKG ---
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
== END 2017-09-12 01:15 | disposition home or self-care (01) ==
LOC: ER 21:54
DX: M32.9 Systemic lupus erythematosus, unspecified (principal); E86.0 Dehydration; R31.29 Other microscopic hematuria; D72.829 Elevated white blood cell count, unspecified; M79.1 Myalgia; F20.9 Schizophrenia, unspecified; E11.9 Type 2 diabetes mellitus without complications; E78.00 Pure hypercholesterolemia, unspecified; J44.9 Chronic obstructive pulmonary disease, unspecified; I10 Essential (primary) hypertension; K21.9 Gastro-esophageal reflux disease without esophagitis; F31.9 Bipolar disorder, unspecified; Z94.9 Transplanted organ and tissue status, unspecified; Z90.710 Acquired absence of both cervix and uterus; Z98.890 Other specified postprocedural states; Z88.5 Allergy status to narcotic agent; Z88.8 Allergy status to other drugs, medicaments and biological substances
CPT/HCPCS: 36415; 80047; 81001; 84484; 85025; 93005; 96361; 96374; 96375; 99285; J1170; J1885; J7030

== ENCOUNTER → 2017-10-04 | Outpatient (CLI) | payer OTHER ==
[2017-09-12 00:39] VITALS: BP 104/63
--- NOTE | 2017-10-04 14:37 | KCIC ---
Pelvic ultrasound History: Left ovarian cyst seen on MRI Comparison: MR lumbar spine September 05, 2017. Technique: Transabdominal imaging of the pelvis was performed. Patient declined endovaginal imaging. Findings: Uterus is absent. Right ovary is not seen, may be surgically absent. Left ovary measures 4.7 x 4.2 x 3.4 cm and demonstrates simple appearing cyst measuring 3.4 cm in maximum dimension. Left ovary demonstrates normal vascular flow upon Doppler interrogation and is without evidence of torsion. Impression: 1. Status post hysterectomy and right oophorectomy. 2. Left ovary demonstrates 3.4 cm simple appearing functional cyst. Electronically signed by: Desmond Garland MD (10/04/2017 2:34 PM) [facility]
== END | disposition home or self-care (01) ==
LOC: KCIC US 13:25
PROVIDERS: ATTEND Family Medicine
DX: N83.202 Unspecified ovarian cyst, left side (principal); Z90.710 Acquired absence of both cervix and uterus
CPT/HCPCS: 76856

== ENCOUNTER 2017-10-20 17:39 | Emergency (ER) | payer OTHER ==
[~2017-10-20] VITALS: Ht 162.6 cm; Wt 120.7 kg
[2017-10-20 19:47] LABS: BASO % 0 % (0-3); EOS % 5 % (0-3); HEMATOCRIT 41.6 % (36.0-47.0); HEMOGLOBIN 13.9 g/dL (12.0-15.5); LYMPH # 3.5 x10^3/uL (1.0-4.8); LYMPH % 32 % (24-48); MEAN CORPUSCULAR HEMOGLOBIN 29 pg (25-35); MEAN CORPUSCULAR HGB CONC 33 g/dL (31-37); MEAN CORPUSCULAR VOLUME 86 fL (79-100); MONO % 4 % (0-9); NEUT % 58 % (31-73); PLATELET COUNT 310 x10^3/uL (140-400); RED BLOOD COUNT 4.85 x10^6/uL (3.50-5.40); RED CELL DISTRIBUTION WIDTH 13.8 % (11.5-14.5)
[2017-10-20 19:56] VITALS: BP 136/87
[2017-10-20 19:57] LABS: CALCIUM 8.5 mg/dL (8.5-10.1); CREATININE 0.8 mg/dL (0.6-1.0); GFR 77.9; POTASSIUM 3.5 mmol/L (3.5-5.1)
[2017-10-20 20:02] LABS: ALBUMIN 3.2 g/dL (3.4-5.0); TOTAL BILIRUBIN 0.3 mg/dL (0.2-1.0); TOTAL PROTEIN 6.3 g/dL (6.4-8.2)
[2017-10-20] MEDS ORDERED: SUCR1TAB PO (20:07)
--- NOTE | 2017-10-20 20:07 | PHYS DOC ---
Past Medical History Past Medical History: Anxiety, Asthma, Bipolar, Cancer, COPD, Depression, Diabetes-Type II, GERD, High Cholesterol, Hypertension, OR, Seizure, Schizophrenia, Other Additional Past Medical Histor: breast CA, ovarian/uterine CA, bone CA, spinal CA TREATED W/CHEMO & RADIATI Past Surgical History: Appendectomy, Cholecystectomy, , Hysterectomy, Tonsillectomy, Other Additional Past Surgical Histo: Bx lumpectomy, esphogeal dilation,BILAT LUMPECTOMY,HERNIA Alcohol Use: None Drug Use: Marijuana Adult General Chief Complaint Chief Complaint: NAUSEA/VOMITING/DIARRHA HPI HPI Patient is a 42 year old female who presents with complaint of upper abdominal pain. The patient is well-known to this emergency department and has had multiple visits in the past for similar complaints. The patient has been admitted to the hospital within the last month where she has undergone extensive medical workup which has shown no acute etiology for patient's symptoms. Patient states that she has been having belching and states that it "tastes like a fart." The patient states that she is on exam at home. Patient states the pain is in her upper abdomen. Patient states that the pain has improved since onset earlier today. Patient denies any vomiting and has had normal stools. Patient denies any fevers currently. Review of Systems Review of Systems Constitutional: Denies fever or chills [] Eyes: Denies change in visual acuity, redness, or eye pain [] HENT: Denies nasal congestion or sore throat [] Respiratory: Denies cough or shortness of breath [] Cardiovascular: Denies chest pain or edema[] GI: Abdominal pain, nausea, denies vomiting or diarrhea[] : Denies dysuria or hematuria [] Musculoskeletal: Denies back pain or joint pain [] Integument: Denies rash or skin lesions [] Neurologic: Denies headache, focal weakness or sensory changes [] All other systems were reviewed and found to be within normal limits, except as documented in this note. Allergies Allergies Allergies Coded Allergies Type Severity Reaction Last Updated Verified adhesive Allergy Intermediate rash 10/15/17 Yes adhesive tape Allergy Intermediate Rash 10/15/17 Yes morphine Adverse Reaction Intermediate Itching 10/15/17 Yes Physical Exam Physical Exam Constitutional: Alert, obese, afebrile, no acute distress. [] HENT: Normocephalic, atraumatic, bilateral external ears normal, oropharynx moist, no oral exudates, nose normal. [] Eyes: PERRLA, EOMI, conjunctiva normal, no discharge. [] Neck: Normal range of motion, no tenderness, supple, no stridor. [] Cardiovascular:Heart rate regular rhythm, no murmur [] Lungs & Thorax: Bilateral breath sounds clear to auscultation [] Abdomen: Bowel sounds normal, soft, mild epigastric tenderness to palpation, no guarding or rebound tenderness, no masses, no pulsatile masses. [] Skin: Warm, dry, no erythema, no rash. [] Back: No tenderness, no CVA tenderness. [] Extremities: No tenderness, no cyanosis, no clubbing, ROM intact, no edema. [] Neurologic: Alert and oriented X 3, normal motor function, normal sensory function, no focal deficits noted. [] Current Patient Data Vital Signs Vital Signs Date Time Temp Pulse Resp B/P (MAP) Pulse Ox O2 Delivery O2 Flow Rate FiO2 10/20/17 19:56 106 18 136/87 (103) 97 Room Air 10/20/17 18:20 99.0 99.0 Lab Values Laboratory Tests Test 10/20/17 18:42 10/20/17 18:45 White Blood Count 11.0 x10^3/uL (4.0-11.0) Red Blood Count 4.85 x10^6/uL (3.50-5.40) Hemoglobin 13.9 g/dL (12.0-15.5) Hematocrit 41.6 % (36.0-47.0) Mean Corpuscular Volume 86 fL (79-100) Mean Corpuscular Hemoglobin 29 pg (25-35) Mean Corpuscular Hemoglobin Concent 33 g/dL (31-37) Red Cell Distribution Width 13.8 % (11.5-14.5) Platelet Count 310 x10^3/uL (140-400) Neutrophils (%) (Auto) 58 % (31-73) Lymphocytes (%) (Auto) 32 % (24-48) Monocytes (%) (Auto) 4 % (0-9) Eosinophils (%) (Auto) 5 % (0-3) H Basophils (%) (Auto) 0 % (0-3) Neutrophils # (Auto) 6.3 x10^3uL (1.8-7.7) Lymphocytes # (Auto) 3.5 x10^3/uL (1.0-4.8) Monocytes # (Auto) 0.5 x10^3/uL (0.0-1.1) Eosinophils # (Auto) 0.6 x10^3/uL (0.0-0.7) Basophils # (Auto) 0.0 x10^3/uL (0.0-0.2) Sodium Level 142 mmol/L (136-145) Potassium Level 3.5 mmol/L (3.5-5.1) Chloride Level 105 mmol/L (98-107) Carbon Dioxide Level 25 mmol/L (21-32) Anion Gap 12 (6-14) Blood Urea Nitrogen 5 mg/dL (7-20) L Creatinine 0.8 mg/dL (0.6-1.0) Estimated GFR (Cockcroft-Gault) 77.9 BUN/Creatinine Ratio 6 (6-20) Glucose Level 184 mg/dL (70-99) H Calcium Level 8.5 mg/dL (8.5-10.1) Total Bilirubin 0.3 mg/dL (0.2-1.0) Aspartate Amino Transferase (AST) 19 U/L (15-37) Alanine Aminotransferase (ALT) 21 U/L (14-59) Alkaline Phosphatase 93 U/L (46-116) Total Protein 6.3 g/dL (6.4-8.2) L Albumin 3.2 g/dL (3.4-5.0) L Albumin/Globulin Ratio 1.0 (1.0-1.7) Lipase 132 U/L (73-393) POC Urine HCG, Qualitative Hcg negative (Negative) Laboratory Tests 10/20/17 18:42 Laboratory Tests 10/20/17 18:42 EKG EKG Not performed[] Radiology/Procedures Radiology/Procedures Not performed[] Course & Med Decision Making Course & Med Decision Making Pertinent Labs and Imaging studies reviewed. (See chart for details) The patient's symptoms appear mild at this time and patient's blood work is unremarkable. I suspect the patient has ongoing gastritis given patient's history of acid reflux disease. Since patient is already on a proton pump inhibitor, I will add sucralfate to help with symptoms. Advise follow-up with primary doctor in 4-5 days for reevaluation and return emergency department for any worsening symptoms. Patient voiced understanding and in agreement with treatment plan. Dragon Disclaimer Dragon Disclaimer This electronic medical record was generated, in whole or in part, using a voice recognition dictation system. Departure Departure Impression: Primary Impression: Abdominal pain Disposition: HOME, SELF-CARE Condition: IMPROVED Referrals: DERIAN TRINIDAD MD (PCP) Patient Instructions: Abdominal Pain Additional Instructions: Follow-up to primary doctor in 4-5 days for reevaluation. Return to emergency department for any worsening symptoms. Scripts Sucralfate (SUCRALFATE) 1 Gm Tablet 1 TAB PO QID, #120 TAB 0 Refills Prov: DARELL DREW MD 10/20/17 Problem Qualifiers Primary Impression: Abdominal pain Abdominal location: epigastric Qualified Codes: R10.13 - Epigastric pain DARELL DREW MD Oct 20, 2017 20:07
== END 2017-10-20 20:15 | disposition home or self-care (01) ==
LOC: ER 17:39
DX: R10.13 Epigastric pain (principal); E11.9 Type 2 diabetes mellitus without complications; E78.00 Pure hypercholesterolemia, unspecified; K21.9 Gastro-esophageal reflux disease without esophagitis; F20.9 Schizophrenia, unspecified; F31.9 Bipolar disorder, unspecified; J44.9 Chronic obstructive pulmonary disease, unspecified; I10 Essential (primary) hypertension; F12.10 Cannabis abuse, uncomplicated; I25.2 Old myocardial infarction; Z90.49 Acquired absence of other specified parts of digestive tract; Z90.710 Acquired absence of both cervix and uterus; Z98.890 Other specified postprocedural states; Z88.5 Allergy status to narcotic agent; Z88.8 Allergy status to other drugs, medicaments and biological substances
CPT/HCPCS: 36415; 80053; 81025; 83690; 85025; 99284

== ENCOUNTER → 2017-11-06 | Outpatient (CLI) | payer OTHER ==
[2017-11-07 02:12] LABS: CA 125 6.4 U/mL (0.0-38.1)
== END | disposition home or self-care (01) ==
LOC: US 15:01
DX: N83.202 Unspecified ovarian cyst, left side (principal)
CPT/HCPCS: 36415; 76856; 86304

== ENCOUNTER → 2017-11-30 | Day surgery (SDC) | payer OTHER ==
[~2017-11-30] MED LIST changes: -ACET-704 PO; -ACET325T9 PO; -ALBU0.63 IH; -AMLO10TA2 PO; -AMOX1TAB11 PO; -ATOR20TA PO; -ATOR20TA58 PO; -AZIT250T6 PO; -Albuterol Sulfate NEB; -BENZ100C PO; -BUPR1PAT7 TD; -BUPR1PAT8 TP; -CELE-20 PO; -CELE200C PO; -CEPH-264 PO; -CEPH500C PO; -CETI10TA16 PO; -CLIN300C8 PO; -CLON0.5T3 PO; -CYCL10TA2 PO; -DIPH25CA3 PO; -DIPH25CA58 PO; -DIPH25TA26 PO; -DIVA250T PO; -DIVA500T17 PO; -DULA0.75 SQ; -ERGO500027 PO; -FLUC100T FT; -FLUO40CA2 PO; -FLUT16SP NS; -FLUT1DIS3 IH; -FURO-69 PO; -GABA-586 PO; -GABA800T2 PO; -HYDR-2758 PO; -HYDR-971 PO; -ILOP6TAB2 PO; -INSU100C SQ; -INSU100I17 SQ; -INSU100V13 SQ; -INSU100V5 IJ; -IPRA15SP IH; -IPRA4AER IH; -Insulin Detemir SQ; -KETO15CR2 TP; -LANS30CA PO; +LIDOCAINE 1% PF 2 ML VIAL. ID; +LIDOCAINE 2% 100 MG/5 ML SYRINGE.; -LISI20TA PO; -METF-620 PO; -METF500T4 PO; -METH750T2 PO; -METO-269 PO; +MIDAZOLAM HCL/PF 2 MG/2 ML VIAL. IV; -MONT10TA9 PO; -MORP15TA3 PO; -NITR0.4T22 SL; -NYST100054 PO; -OMEP20TA63 PO; -ONDA4TAB7 PO; -OXYC-323 PO; -OXYC15TA PO; -OXYC5CAP PO; -OXYC5TAB95 PO; -POLY119P4 PO; -POLY17PO3 PO; -POLY255P PO; -POTA20TA4 PO; -PRAZ5CAP2 PO; -PRED-220 PO; -PRED50TA PO; -PROAIR HFA8.5 GM IH; -PROAIR HFA8.5 GM INH; +PROPOFOL 20 ML IV; -QUET100T PO; -QUET300T PO; -QUET300T6 PO; -QUET400T PO; -QUIN1TAB17 PO; -RANI300C PO; -RANI300T PO; -SPIR50TA2 PO; -SULF1TAB24 PO; -Sulfamethoxazole/Trimethoprim PO; -TIOT18CA IH; -TOPI100T8 PO; -TRAZ150T49 PO; -TRIA10.8 NS; -TRIF5TAB PO; +fentaNYL PF VIAL 100 MCG/2 ML VIAL IV; -hydrocodone; -symbicort
[2017-11-30] MEDS: IV RINGERS,LACTATED 1000ML 1,000 ML IV ×2 (12:11)
== END | disposition home or self-care (01) ==
LOC: ENDOS 11:24
DX: K22.2 Esophageal obstruction (principal); K29.50 Unspecified chronic gastritis without bleeding; E78.00 Pure hypercholesterolemia, unspecified; J44.9 Chronic obstructive pulmonary disease, unspecified; I48.91 Unspecified atrial fibrillation; I10 Essential (primary) hypertension; E11.9 Type 2 diabetes mellitus without complications; F41.9 Anxiety disorder, unspecified; F32.9 Major depressive disorder, single episode, unspecified; F17.200 Nicotine dependence, unspecified, uncomplicated; Z88.6 Allergy status to analgesic agent; Z86.69 Personal history of other diseases of the nervous system and sense organs; Z90.49 Acquired absence of other specified parts of digestive tract; Z90.710 Acquired absence of both cervix and uterus; Z85.3 Personal history of malignant neoplasm of breast; Z87.39 Personal history of other diseases of the musculoskeletal system and connective tissue; Z86.39 Personal history of other endocrine, nutritional and metabolic disease; Z72.0 Tobacco use; Z91.048 Other nonmedicinal substance allergy status
CPT/HCPCS: 43235; J2704

== ENCOUNTER 2017-12-07 11:49 | Emergency (ER) | payer OTHER ==
[2017-12-07] MEDS: IPRATRPIUM/ALBUTEROL 0.5/2.5MG 3 ML NEBU. NEB ×2 (12:30)
[2017-12-07 12:38] LABS: ADD MAN DIFF? NO
[2017-12-07 12:43] LABS: BASO # 0.1 x10^3/uL (0.0-0.2); BASO % 1 % (0-3); EOS # 0.8 x10^3/uL (0.0-0.7); EOS % 7 % (0-3); HEMATOCRIT 41.4 % (36.0-47.0); HEMOGLOBIN 13.6 g/dL (12.0-15.5); LYMPH # 4.4 x10^3/uL (1.0-4.8); LYMPH % 40 % (24-48); MEAN CORPUSCULAR HEMOGLOBIN 28 pg (25-35); MEAN CORPUSCULAR HGB CONC 33 g/dL (31-37); MEAN CORPUSCULAR VOLUME 86 fL (79-100); MONO # 0.5 x10^3/uL (0.0-1.1); MONO % 4 % (0-9); NEUT # 5.3 x10^3uL (1.8-7.7); NEUT % 48 % (31-73); PLATELET COUNT 311 x10^3/uL (140-400); RED BLOOD COUNT 4.83 x10^6/uL (3.50-5.40); RED CELL DISTRIBUTION WIDTH 13.2 % (11.5-14.5); WHITE BLOOD COUNT 11.2 x10^3/uL (4.0-11.0)
[2017-12-07] MEDS: ASPIRIN 325 MG TABLET PO ×2 (12:44)
[2017-12-07] MEDS: methylPREDNISolone SOD SUCC PF 125 MG/2 ML VIAL. IV ×2 (12:44)
[2017-12-07] MEDS: IV NORMAL SALINE 1000ML BAG 1,000 ML IV ×2 (12:45)
[2017-12-07 12:48] LABS: URINE HCG POC HCG NEGATIVE (Negative)
[2017-12-07 12:48] LABS: BILIRUBIN,URINE NEGATIVE (NEG); CLARITY,URINE CLEAR; COLOR,URINE YELLOW; GLUCOSE,URINE NEGATIVE (NEG); NITRITE,URINE NEGATIVE (NEG); PH,URINE 5.5; PROTEIN,URINE 30 mg/dL (NEG-TRACE); UROBILINOGEN,URINE 0.2 mg/dL (0.2 mg/dL)
[2017-12-07 12:57] LABS: BACTERIA,URINE MODERATE /HPF (0-FEW); SQUAMOUS EPITHELIAL CELL,UR FEW /LPF; WBC,URINE TNTC /HPF (0-4)
[2017-12-07] MEDS: HYDROmorphone 2 MG/ML VIAL IV ×2 (12:57)
[2017-12-07 12:58] LABS: INR 0.9 (0.8-1.1); PARTIAL THROMBOPLASTIN TIME 27 SEC (24-38)
[2017-12-07 13:11] LABS: D-DIMER 0.36 ug/mlFEU (0.00-0.50)
[2017-12-07 13:16] LABS: ANION GAP 9 (6-14); BLOOD UREA NITROGEN 6 mg/dL (7-20); BUN/CREATININE RATIO 8 (6-20); CARBON DIOXIDE 29 mmol/L (21-32); CHLORIDE 107 mmol/L (98-107); CREATININE 0.8 mg/dL (0.6-1.0); GFR 77.9; GLUCOSE 141 mg/dL (70-99); POTASSIUM 3.6 mmol/L (3.5-5.1); SODIUM 145 mmol/L (136-145)
[2017-12-07 13:20] LABS: TROPONINI < 0.017 ng/mL (0.000-0.055)
[2017-12-07 13:23] LABS: ALBUMIN 2.9 g/dL (3.4-5.0); ALK PHOS 82 U/L (46-116); ALT (SGPT) 17 U/L (14-59); AST (SGOT) 12 U/L (15-37); MAGNESIUM 1.6 mg/dL (1.8-2.4); TOTAL BILIRUBIN 0.4 mg/dL (0.2-1.0); TOTAL PROTEIN 5.8 g/dL (6.4-8.2)
[2017-12-07 13:28] LABS: NT-PRO BNP 7 pg/mL (0-124)
[2017-12-07] MEDS ORDERED: NITROGLYCERIN SUBLINGUAL 0.4 MG BOTTLE OF 25. SL ×2 (14:00)
[2017-12-07] MEDS ORDERED: ACETAMINOPHEN 325 MG TABLET. PO ×2 (14:00)
[2017-12-07] MEDS ORDERED: ONDANSETRON PF 4 MG/2 ML VIAL. IV ×2 (14:00)
[2017-12-07] MEDS: HYDROmorphone 2 MG/ML VIAL IVP ×2 (14:34)
[2017-12-07] MEDS ORDERED: IPRATRPIUM/ALBUTEROL 0.5/2.5MG 3 ML NEBU. NEB ×2 (16:00)
== END 2017-12-07 15:16 | disposition left against medical advice (07) ==
LOC: ER 11:49 → 5 NORTH 13:42 → ER 15:16
DX: R07.89 Other chest pain (principal); M32.9 Systemic lupus erythematosus, unspecified; N39.0 Urinary tract infection, site not specified; E78.5 Hyperlipidemia, unspecified; E11.9 Type 2 diabetes mellitus without complications; F20.9 Schizophrenia, unspecified; J44.9 Chronic obstructive pulmonary disease, unspecified; I25.2 Old myocardial infarction; K21.9 Gastro-esophageal reflux disease without esophagitis; F12.10 Cannabis abuse, uncomplicated; Z85.43 Personal history of malignant neoplasm of ovary; Z90.710 Acquired absence of both cervix and uterus; Z90.49 Acquired absence of other specified parts of digestive tract; Z85.3 Personal history of malignant neoplasm of breast; Z79.899 Other long term (current) drug therapy; Z79.4 Long term (current) use of insulin; Z88.5 Allergy status to narcotic agent; Z88.8 Allergy status to other drugs, medicaments and biological substances
CPT/HCPCS: 36415; 71045; 80053; 81001; 81025; 83735; 83880; 84484; 85025; 85379; 85610; 85730; 87086; 87186; 93005; 94640; 96365; 96375; 96376; 99285-25; J0690; J1170; J2930; J7030; J7620

== ENCOUNTER 2017-12-14 11:09 | Emergency (ER) | payer OTHER ==
[2017-12-14 12:33] LABS: ADD MAN DIFF? NO; BASO # 0.2 x10^3/uL (0.0-0.2); BASO % 1 % (0-3); EOS # 0.8 x10^3/uL (0.0-0.7); EOS % 7 % (0-3); HEMOGLOBIN 14.6 g/dL (12.0-15.5); LYMPH # 4.1 x10^3/uL (1.0-4.8); LYMPH % 33 % (24-48); MEAN CORPUSCULAR HEMOGLOBIN 29 pg (25-35); MEAN CORPUSCULAR HGB CONC 34 g/dL (31-37); MEAN CORPUSCULAR VOLUME 85 fL (79-100); MONO # 0.5 x10^3/uL (0.0-1.1); MONO % 4 % (0-9); NEUT # 6.9 x10^3uL (1.8-7.7); NEUT % 56 % (31-73); PLATELET COUNT 305 x10^3/uL (140-400); RED BLOOD COUNT 5.07 x10^6/uL (3.50-5.40); RED CELL DISTRIBUTION WIDTH 13.5 % (11.5-14.5); WHITE BLOOD COUNT 12.4 x10^3/uL (4.0-11.0)
[2017-12-14] MEDS: ONDANSETRON PF 4 MG/2 ML VIAL. IV ×2 (12:41)
[2017-12-14] MEDS: fentaNYL PF VIAL 100 MCG/2 ML VIAL IV ×2 (12:42)
[2017-12-14 12:43] LABS: ANION GAP 10 (6-14); BLOOD UREA NITROGEN 4 mg/dL (7-20); BUN/CREATININE RATIO 5 (6-20); CALCIUM 9.1 mg/dL (8.5-10.1); CARBON DIOXIDE 27 mmol/L (21-32); CHLORIDE 106 mmol/L (98-107); CREATININE 0.8 mg/dL (0.6-1.0); GFR 77.9; GLUCOSE 182 mg/dL (70-99); PARTIAL THROMBOPLASTIN TIME 29 SEC (24-38); POTASSIUM 4.1 mmol/L (3.5-5.1); PROTHROMBIN TIME PATIENT 12.6 SEC (11.7-14.0); SODIUM 143 mmol/L (136-145)
[2017-12-14 12:50] LABS: ALBUMIN 3.3 g/dL (3.4-5.0); ALBUMIN/GLOBULIN RATIO 0.9 (1.0-1.7); ALK PHOS 94 U/L (46-116); ALT (SGPT) 23 U/L (14-59); AST (SGOT) 21 U/L (15-37); CREATINE KINASE 76 U/L (26-192); TOTAL BILIRUBIN 0.5 mg/dL (0.2-1.0)
[2017-12-14 12:51] LABS: TROPONINI < 0.017 ng/mL (0.000-0.055)
[2017-12-14 12:55] LABS: NT-PRO BNP 9 pg/mL (0-124)
[2017-12-14 13:16] LABS: BILIRUBIN,URINE NEGATIVE (NEG); CLARITY,URINE CLEAR; COLOR,URINE YELLOW; GLUCOSE,URINE NEGATIVE (NEG); NITRITE,URINE NEGATIVE (NEG); PH,URINE 5.5; PROTEIN,URINE NEGATIVE (NEG-TRACE); UROBILINOGEN,URINE 0.2 mg/dL (0.2 mg/dL)
[2017-12-14 13:20] LABS: BACTERIA,URINE FEW /HPF (0-FEW); RBC,URINE 0 /HPF (0-2); SQUAMOUS EPITHELIAL CELL,UR MOD /LPF
[2017-12-14 13:22] LABS: BARBITURATES NEG (NEG); BENZODIAZEPINES NEG (NEG); CANNABINOIDS POS (NEG); COCAINE NEG (NEG); METHADONE NEG (NEG); OPIATES POS (NEG); PHENCYCLIDINE NEG (NEG)
[2017-12-14 13:24] LABS: AMPHETAMINE/METHAMPHETAMINE NEG (NEG); ETHANOL, URINE NEG (NEG)
[2017-12-14] MEDS: diphenhydrAMINE HCL 25 MG CAPSULE PO ×2 (13:50)
== END 2017-12-14 14:25 | disposition home or self-care (01) ==
LOC: ER 11:09
DX: R10.84 Generalized abdominal pain (principal); D72.829 Elevated white blood cell count, unspecified; M32.9 Systemic lupus erythematosus, unspecified; J44.9 Chronic obstructive pulmonary disease, unspecified; E78.00 Pure hypercholesterolemia, unspecified; F20.9 Schizophrenia, unspecified; E11.9 Type 2 diabetes mellitus without complications; I10 Essential (primary) hypertension; K21.9 Gastro-esophageal reflux disease without esophagitis; F31.9 Bipolar disorder, unspecified; F12.10 Cannabis abuse, uncomplicated; I25.2 Old myocardial infarction; Z85.42 Personal history of malignant neoplasm of other parts of uterus; Z90.710 Acquired absence of both cervix and uterus; Z90.49 Acquired absence of other specified parts of digestive tract; Z88.5 Allergy status to narcotic agent; Z88.8 Allergy status to other drugs, medicaments and biological substances
CPT/HCPCS: 36415; 71045; 80053; 80307; 81001; 82550; 83735; 83880; 84484; 85025; 85610; 85730; 96374; 96375; 99285-25; J2405; J3010; Q0163

== ENCOUNTER 2017-12-28 23:37 | Emergency (ER) | payer OTHER ==
[2017-12-28 23:54] LABS: URINE HCG POC HCG NEGATIVE (Negative)
[2017-12-29] MEDS: DEXAMETHASONE SOD PHOS 20 MG/5 ML VIAL. IV (00:17)
[2017-12-29] MEDS: IV NORMAL SALINE 1000ML BAG 1,000 ML IV (00:17)
[2017-12-29 00:18] LABS: ADD MAN DIFF? NO
[2017-12-29 00:19] LABS: BASO # 0.2 x10^3/uL (0.0-0.2); BASO % 1 % (0-3); BILIRUBIN,URINE SMALL (NEG); CLARITY,URINE CLOUDY; COLOR,URINE YELLOW; EOS # 0.7 x10^3/uL (0.0-0.7); EOS % 6 % (0-3); GLUCOSE,URINE NEGATIVE (NEG); HEMATOCRIT 41.4 % (36.0-47.0); HEMOGLOBIN 13.9 g/dL (12.0-15.5); LYMPH # 4.6 x10^3/uL (1.0-4.8); LYMPH % 40 % (24-48); MEAN CORPUSCULAR HEMOGLOBIN 28 pg (25-35); MEAN CORPUSCULAR HGB CONC 34 g/dL (31-37); MEAN CORPUSCULAR VOLUME 84 fL (79-100); MONO # 0.5 x10^3/uL (0.0-1.1); MONO % 5 % (0-9); NEUT # 5.6 x10^3uL (1.8-7.7); NEUT % 48 % (31-73); NITRITE,URINE NEGATIVE (NEG); PH,URINE 5.5; PLATELET COUNT 310 x10^3/uL (140-400); PROTEIN,URINE NEGATIVE (NEG-TRACE); RED BLOOD COUNT 4.95 x10^6/uL (3.50-5.40); RED CELL DISTRIBUTION WIDTH 13.7 % (11.5-14.5); WHITE BLOOD COUNT 11.6 x10^3/uL (4.0-11.0)
[2017-12-29 00:30] LABS: ANION GAP 10 (6-14); BLOOD UREA NITROGEN 5 mg/dL (7-20); CALCIUM 8.6 mg/dL (8.5-10.1); CARBON DIOXIDE 25 mmol/L (21-32); CHLORIDE 107 mmol/L (98-107); CREATININE 0.9 mg/dL (0.6-1.0); GLUCOSE 184 mg/dL (70-99); MAGNESIUM 1.9 mg/dL (1.8-2.4); POTASSIUM 3.6 mmol/L (3.5-5.1); SODIUM 142 mmol/L (136-145)
[2017-12-29 00:31] LABS: BACTERIA,URINE MANY /HPF (0-FEW); RBC,URINE 0 /HPF (0-2); SQUAMOUS EPITHELIAL CELL,UR MANY /LPF
[2017-12-29] MEDS: oxyCODONE IR 5 MG TABLET PO (00:32)
== END 2017-12-29 01:10 | disposition home or self-care (01) ==
LOC: ER 23:37
DX: L93.0 Discoid lupus erythematosus (principal); I10 Essential (primary) hypertension; E11.9 Type 2 diabetes mellitus without complications; J44.9 Chronic obstructive pulmonary disease, unspecified; Z85.3 Personal history of malignant neoplasm of breast; Z85.42 Personal history of malignant neoplasm of other parts of uterus; I25.2 Old myocardial infarction; Z90.49 Acquired absence of other specified parts of digestive tract; Z90.710 Acquired absence of both cervix and uterus; F12.10 Cannabis abuse, uncomplicated; Z98.890 Other specified postprocedural states; Z88.5 Allergy status to narcotic agent; Z88.8 Allergy status to other drugs, medicaments and biological substances
CPT/HCPCS: 36415; 80048; 81001; 81025; 83735; 85025; 87086; 93005; 96361; 96374; 99285-25; J1100; J7030

== ENCOUNTER 2018-01-06 22:47 | Emergency (ER) | payer OTHER | END 2018-01-07 00:10 | disposition home or self-care (01) | LOC: ER 22:47 | DX: S80.01XA Contusion of right knee, initial encounter (principal); F20.9 Schizophrenia, unspecified; E78.00 Pure hypercholesterolemia, unspecified; F41.9 Anxiety disorder, unspecified; J44.9 Chronic obstructive pulmonary disease, unspecified; I10 Essential (primary) hypertension; F31.9 Bipolar disorder, unspecified; E11.9 Type 2 diabetes mellitus without complications; F12.10 Cannabis abuse, uncomplicated; I25.2 Old myocardial infarction; Z88.5 Allergy status to narcotic agent; Z88.8 Allergy status to other drugs, medicaments and biological substances; Z90.49 Acquired absence of other specified parts of digestive tract; Z90.710 Acquired absence of both cervix and uterus; W18.39XA Other fall on same level, initial encounter; Y93.89 Activity, other specified; Y99.8 Other external cause status; Y92.89 Other specified places as the place of occurrence of the external cause | CPT/HCPCS: 73564; 99284 ==

== ENCOUNTER 2018-01-08 19:33 | Emergency (ER) | payer OTHER ==
[2018-01-08 19:57] LABS: ADD MAN DIFF? NO
[2018-01-08 19:59] LABS: BASO # 0.2 x10^3/uL (0.0-0.2); BASO % 1 % (0-3); EOS # 0.6 x10^3/uL (0.0-0.7); EOS % 4 % (0-3); HEMATOCRIT 40.7 % (36.0-47.0); HEMOGLOBIN 13.6 g/dL (12.0-15.5); LYMPH # 3.2 x10^3/uL (1.0-4.8); LYMPH % 25 % (24-48); MEAN CORPUSCULAR HEMOGLOBIN 28 pg (25-35); MEAN CORPUSCULAR HGB CONC 34 g/dL (31-37); MEAN CORPUSCULAR VOLUME 84 fL (79-100); MONO # 0.5 x10^3/uL (0.0-1.1); MONO % 4 % (0-9); NEUT # 8.3 x10^3uL (1.8-7.7); NEUT % 65 % (31-73); PLATELET COUNT 232 x10^3/uL (140-400); RED BLOOD COUNT 4.83 x10^6/uL (3.50-5.40); RED CELL DISTRIBUTION WIDTH 14.3 % (11.5-14.5); WHITE BLOOD COUNT 12.8 x10^3/uL (4.0-11.0)
[2018-01-08 20:09] LABS: PARTIAL THROMBOPLASTIN TIME 25 SEC (24-38); PROTHROMBIN TIME PATIENT 12.4 SEC (11.7-14.0)
[2018-01-08 20:14] LABS: ANION GAP 12 (6-14); BLOOD UREA NITROGEN 7 mg/dL (7-20); CALCIUM 8.6 mg/dL (8.5-10.1); CARBON DIOXIDE 25 mmol/L (21-32); CHLORIDE 103 mmol/L (98-107); CREATININE 0.9 mg/dL (0.6-1.0); GLUCOSE 215 mg/dL (70-99); POTASSIUM 3.5 mmol/L (3.5-5.1); SODIUM 140 mmol/L (136-145)
[2018-01-08 20:17] LABS: D-DIMER 0.33 ug/mlFEU (0.00-0.50)
[2018-01-08 20:19] LABS: ALBUMIN 2.9 g/dL (3.4-5.0); ALK PHOS 88 U/L (46-116); ALT (SGPT) 22 U/L (14-59); AST (SGOT) 20 U/L (15-37); DIRECT BILIRUBIN 0.1 mg/dL (0.0-0.2); LIPASE 140 U/L (73-393); TOTAL BILIRUBIN 0.5 mg/dL (0.2-1.0); TOTAL PROTEIN 6.2 g/dL (6.4-8.2)
[2018-01-08 20:21] LABS: TROPONINI < 0.017 ng/mL (0.000-0.055)
[2018-01-08 20:25] LABS: NT-PRO BNP 15 pg/mL (0-124)
[2018-01-08] MEDS ORDERED: ASPIRIN 325 MG TABLET PO (21:00)
[2018-01-08 21:09] LABS: NEG OBC SER NEG; POS OBC SER POS; PREG TEST PT QUAL NEGATIVE (NEG)
== END 2018-01-08 21:31 | disposition left against medical advice (07) ==
LOC: ER 19:33
DX: R07.89 Other chest pain (principal); I10 Essential (primary) hypertension; E11.9 Type 2 diabetes mellitus without complications; M32.9 Systemic lupus erythematosus, unspecified; E78.5 Hyperlipidemia, unspecified; E78.00 Pure hypercholesterolemia, unspecified; F20.9 Schizophrenia, unspecified; J44.9 Chronic obstructive pulmonary disease, unspecified; F12.10 Cannabis abuse, uncomplicated; M79.1 Myalgia; F31.9 Bipolar disorder, unspecified; F17.200 Nicotine dependence, unspecified, uncomplicated; Z85.3 Personal history of malignant neoplasm of breast; Z86.718 Personal history of other venous thrombosis and embolism; Z85.42 Personal history of malignant neoplasm of other parts of uterus; Z90.710 Acquired absence of both cervix and uterus; Z98.890 Other specified postprocedural states; Z79.82 Long term (current) use of aspirin; Z79.01 Long term (current) use of anticoagulants; Z88.5 Allergy status to narcotic agent; Z88.8 Allergy status to other drugs, medicaments and biological substances
CPT/HCPCS: 36415; 71045; 80048; 80076; 83690; 83880; 84484; 84703; 85025; 85379; 85610; 85730; 93005; 99285-25

== ENCOUNTER 2018-01-18 00:58 | Emergency (ER) | payer OTHER ==
[2018-01-18] MEDS: diphenhydrAMINE 50 MG/ML VIAL IM (01:38)
[2018-01-18] MEDS: KETOROLAC 60 MG/2 ML INJ. IM (01:39)
[2018-01-18] MEDS: hydrOXYzine IM 50 MG/ML VIAL IM (01:40)
== END 2018-01-18 01:44 | disposition home or self-care (01) ==
LOC: ER 00:58
DX: G43.109 Migraine with aura, not intractable, without status migrainosus (principal); F41.9 Anxiety disorder, unspecified; J44.9 Chronic obstructive pulmonary disease, unspecified; F31.9 Bipolar disorder, unspecified; E11.9 Type 2 diabetes mellitus without complications; E78.00 Pure hypercholesterolemia, unspecified; I10 Essential (primary) hypertension; I25.2 Old myocardial infarction; F20.9 Schizophrenia, unspecified; M32.9 Systemic lupus erythematosus, unspecified; F17.210 Nicotine dependence, cigarettes, uncomplicated; F12.10 Cannabis abuse, uncomplicated; Z90.49 Acquired absence of other specified parts of digestive tract; Z90.710 Acquired absence of both cervix and uterus; Z91.048 Other nonmedicinal substance allergy status; Z88.5 Allergy status to narcotic agent
CPT/HCPCS: 96372; 99284; J1200; J1885; J3410

== ENCOUNTER 2018-01-18 15:47 | Emergency (ER) | payer OTHER ==
[2018-01-18] MEDS: METOCLOPRAMIDE HCL 10 MG/2 ML VIAL. IV (16:36)
[2018-01-18] MEDS: IV NORMAL SALINE 1000ML BAG 1,000 ML IV (16:36)
[2018-01-18] MEDS: diphenhydrAMINE 50 MG/ML VIAL IVP (16:36)
[2018-01-18] MEDS: KETOROLAC 30 MG/ML INJ. IV (16:37)
[2018-01-18 16:45] LABS: ADD MAN DIFF? NO
[2018-01-18 16:46] LABS: BASO # 0.1 x10^3/uL (0.0-0.2); BASO % 1 % (0-3); EOS # 0.6 x10^3/uL (0.0-0.7); EOS % 5 % (0-3); HEMATOCRIT 41.6 % (36.0-47.0); LYMPH # 3.4 x10^3/uL (1.0-4.8); LYMPH % 32 % (24-48); MEAN CORPUSCULAR HEMOGLOBIN 28 pg (25-35); MEAN CORPUSCULAR HGB CONC 34 g/dL (31-37); MEAN CORPUSCULAR VOLUME 84 fL (79-100); MONO # 0.5 x10^3/uL (0.0-1.1); MONO % 4 % (0-9); NEUT # 6.2 x10^3uL (1.8-7.7); NEUT % 58 % (31-73); PLATELET COUNT 274 x10^3/uL (140-400); RED BLOOD COUNT 4.98 x10^6/uL (3.50-5.40); RED CELL DISTRIBUTION WIDTH 14.7 % (11.5-14.5); WHITE BLOOD COUNT 10.7 x10^3/uL (4.0-11.0)
[2018-01-18 16:51] LABS: BILIRUBIN,URINE NEGATIVE (NEG); CLARITY,URINE CLEAR; COLOR,URINE YELLOW; GLUCOSE,URINE NEGATIVE (NEG); NITRITE,URINE NEGATIVE (NEG); PH,URINE 8.5; PROTEIN,URINE 100 mg/dL (NEG-TRACE)
[2018-01-18 16:56] LABS: ANION GAP 11 (6-14); BLOOD UREA NITROGEN 8 mg/dL (7-20); CALCIUM 8.4 mg/dL (8.5-10.1); CARBON DIOXIDE 24 mmol/L (21-32); CHLORIDE 106 mmol/L (98-107); CREATININE 0.9 mg/dL (0.6-1.0); GLUCOSE 222 mg/dL (70-99); POTASSIUM 3.5 mmol/L (3.5-5.1); SODIUM 141 mmol/L (136-145)
[2018-01-18 17:01] LABS: BACTERIA,URINE FEW /HPF (0-FEW); RBC,URINE 0 /HPF (0-2); SQUAMOUS EPITHELIAL CELL,UR MANY /LPF
== END 2018-01-18 17:37 | disposition home or self-care (01) ==
LOC: ER 15:47
DX: G43.909 Migraine, unspecified, not intractable, without status migrainosus (principal); F41.9 Anxiety disorder, unspecified; J44.9 Chronic obstructive pulmonary disease, unspecified; F31.9 Bipolar disorder, unspecified; E11.9 Type 2 diabetes mellitus without complications; E78.00 Pure hypercholesterolemia, unspecified; I10 Essential (primary) hypertension; I25.2 Old myocardial infarction; F20.9 Schizophrenia, unspecified; M32.9 Systemic lupus erythematosus, unspecified; E66.9 Obesity, unspecified; F12.10 Cannabis abuse, uncomplicated; Z90.49 Acquired absence of other specified parts of digestive tract; Z90.710 Acquired absence of both cervix and uterus; Z91.048 Other nonmedicinal substance allergy status; Z88.5 Allergy status to narcotic agent; Z68.38 Body mass index [BMI] 38.0-38.9, adult
CPT/HCPCS: 36415; 70450; 80048; 81001; 85025; 96361; 96374; 96375; 99285-25; J1200; J1885; J2765; J7030

== ENCOUNTER → 2018-01-23 | Day surgery (SDC) | payer OTHER ==
[~2018-01-23] MED LIST changes: -MIDAZOLAM HCL/PF 2 MG/2 ML VIAL. IV; +ONDANSETRON PF 4 MG/2 ML VIAL. IV; +PROCHLORPERAZINE 10 MG/2 ML VIAL. IV; -fentaNYL PF VIAL 100 MCG/2 ML VIAL IV
[2018-01-23] MEDS: IV RINGERS,LACTATED 1000ML 1,000 ML IV (07:00)
== END | disposition home or self-care (01) ==
LOC: ENDOS 15:38
DX: K22.2 Esophageal obstruction (principal); K29.50 Unspecified chronic gastritis without bleeding; I10 Essential (primary) hypertension; F17.210 Nicotine dependence, cigarettes, uncomplicated; E11.9 Type 2 diabetes mellitus without complications; J44.9 Chronic obstructive pulmonary disease, unspecified; G47.33 Obstructive sleep apnea (adult) (pediatric); E66.01 Morbid (severe) obesity due to excess calories; Z68.41 Body mass index [BMI] 40.0-44.9, adult; M19.90 Unspecified osteoarthritis, unspecified site; Z85.3 Personal history of malignant neoplasm of breast; E78.5 Hyperlipidemia, unspecified; Z90.49 Acquired absence of other specified parts of digestive tract; Z90.710 Acquired absence of both cervix and uterus; Z79.84 Long term (current) use of oral hypoglycemic drugs; Z79.899 Other long term (current) drug therapy; F41.9 Anxiety disorder, unspecified; Z80.3 Family history of malignant neoplasm of breast; Z82.3 Family history of stroke; Z72.89 Other problems related to lifestyle; Z98.890 Other specified postprocedural states; Z87.19 Personal history of other diseases of the digestive system; Z88.5 Allergy status to narcotic agent; Z91.048 Other nonmedicinal substance allergy status
CPT/HCPCS: 43235; J2704

== ENCOUNTER 2018-01-27 21:10 | Emergency (ER) | payer OTHER ==
[2018-01-27] MEDS: methylPREDNISolone SOD SUCC PF 125 MG/2 ML VIAL. IV (22:09)
[2018-01-27 22:19] LABS: ADD MAN DIFF? NO
[2018-01-27 22:21] LABS: BASO # 0.2 x10^3/uL (0.0-0.2); BASO % 1 % (0-3); EOS # 0.6 x10^3/uL (0.0-0.7); EOS % 4 % (0-3); HEMATOCRIT 40.6 % (36.0-47.0); HEMOGLOBIN 13.6 g/dL (12.0-15.5); LYMPH # 4.5 x10^3/uL (1.0-4.8); LYMPH % 29 % (24-48); MEAN CORPUSCULAR HEMOGLOBIN 28 pg (25-35); MEAN CORPUSCULAR HGB CONC 33 g/dL (31-37); MEAN CORPUSCULAR VOLUME 84 fL (79-100); MONO # 0.6 x10^3/uL (0.0-1.1); MONO % 4 % (0-9); NEUT % 63 % (31-73); PLATELET COUNT 305 x10^3/uL (140-400); RED BLOOD COUNT 4.84 x10^6/uL (3.50-5.40); RED CELL DISTRIBUTION WIDTH 14.7 % (11.5-14.5); WHITE BLOOD COUNT 15.8 x10^3/uL (4.0-11.0)
[2018-01-27 22:22] LABS: URINE HCG POC HCG NEGATIVE (Negative)
[2018-01-27 22:22] LABS: BILIRUBIN,URINE NEGATIVE (NEG); CLARITY,URINE CLEAR; COLOR,URINE YELLOW; GLUCOSE,URINE NEGATIVE (NEG); NITRITE,URINE NEGATIVE (NEG); PROTEIN,URINE NEGATIVE (NEG-TRACE)
[2018-01-27 22:26] LABS: BACTERIA,URINE FEW /HPF (0-FEW); RBC,URINE 0 /HPF (0-2); SQUAMOUS EPITHELIAL CELL,UR MOD /LPF; WBC,URINE OCC /HPF (0-4)
[2018-01-27 22:28] LABS: BARBITURATES NEG (NEG); BENZODIAZEPINES NEG (NEG); CANNABINOIDS POS (NEG); COCAINE NEG (NEG); METHADONE NEG (NEG); OPIATES NEG (NEG); PHENCYCLIDINE NEG (NEG)
[2018-01-27 22:30] LABS: AMPHETAMINE/METHAMPHETAMINE NEG (NEG); ETHANOL, URINE NEG (NEG)
[2018-01-27 23:16] LABS: ANION GAP 10 (6-14); BLOOD UREA NITROGEN 7 mg/dL (7-20); BUN/CREATININE RATIO 8 (6-20); CALCIUM 8.8 mg/dL (8.5-10.1); CARBON DIOXIDE 26 mmol/L (21-32); CHLORIDE 105 mmol/L (98-107); CREATININE 0.9 mg/dL (0.6-1.0); GLUCOSE 207 mg/dL (70-99); POTASSIUM 3.4 mmol/L (3.5-5.1); SODIUM 141 mmol/L (136-145)
[2018-01-27 23:21] LABS: ALBUMIN 2.9 g/dL (3.4-5.0); ALBUMIN/GLOBULIN RATIO 0.9 (1.0-1.7); ALK PHOS 106 U/L (46-116); ALT (SGPT) 19 U/L (14-59); AST (SGOT) 10 U/L (15-37); TOTAL BILIRUBIN 0.3 mg/dL (0.2-1.0); TOTAL PROTEIN 6.3 g/dL (6.4-8.2)
== END 2018-01-27 23:05 | disposition home or self-care (01) ==
LOC: ER 21:10
DX: M32.9 Systemic lupus erythematosus, unspecified (principal); G89.29 Other chronic pain; E78.00 Pure hypercholesterolemia, unspecified; E11.9 Type 2 diabetes mellitus without complications; I10 Essential (primary) hypertension; F20.9 Schizophrenia, unspecified; J44.9 Chronic obstructive pulmonary disease, unspecified; F12.10 Cannabis abuse, uncomplicated; Z90.49 Acquired absence of other specified parts of digestive tract; Z90.710 Acquired absence of both cervix and uterus; Z98.890 Other specified postprocedural states; Z88.5 Allergy status to narcotic agent; Z88.8 Allergy status to other drugs, medicaments and biological substances
CPT/HCPCS: 36415; 80053; 80307; 81001; 81025; 85025; 96374; 99284-25; J2930

== ENCOUNTER 2018-02-02 12:28 | Emergency (ER) | payer OTHER ==
[2018-02-02 13:44] LABS: BILIRUBIN,URINE NEGATIVE (NEG); CLARITY,URINE CLEAR; COLOR,URINE YELLOW; GLUCOSE,URINE NEGATIVE (NEG); NITRITE,URINE NEGATIVE (NEG); PROTEIN,URINE NEGATIVE (NEG-TRACE)
[2018-02-02 13:55] LABS: BACTERIA,URINE FEW /HPF (0-FEW); RBC,URINE 0 /HPF (0-2); SQUAMOUS EPITHELIAL CELL,UR FEW /LPF; WBC,URINE RARE /HPF (0-4)
[2018-02-02] MEDS: ONDANSETRON PF 4 MG/2 ML VIAL. IV (14:15)
[2018-02-02] MEDS: fentaNYL PF VIAL 100 MCG/2 ML VIAL IV ×2 (14:17→15:40)
[2018-02-02 14:54] LABS: BASO % 0 % (0-3); EOS # 0.2 x10^3/uL (0.0-0.7); EOS % 2 % (0-3); LYMPH # 4.8 x10^3/uL (1.0-4.8); LYMPH % 33 % (24-48); MEAN CORPUSCULAR HEMOGLOBIN 28 pg (25-35); MEAN CORPUSCULAR HGB CONC 33 g/dL (31-37); MEAN CORPUSCULAR VOLUME 83 fL (79-100); MONO # 0.6 x10^3/uL (0.0-1.1); MONO % 5 % (0-9); NEUT # 8.6 x10^3uL (1.8-7.7); NEUT % 60 % (31-73); PLATELET COUNT 286 x10^3/uL (140-400); RED BLOOD COUNT 4.71 x10^6/uL (3.50-5.40); RED CELL DISTRIBUTION WIDTH 15.1 % (11.5-14.5); WHITE BLOOD COUNT 14.3 x10^3/uL (4.0-11.0)
[2018-02-02 15:02] LABS: ADD MAN DIFF? YES
[2018-02-02 15:11] LABS: ALBUMIN 2.6 g/dL (3.4-5.0); ALBUMIN/GLOBULIN RATIO 0.9 (1.0-1.7); ALK PHOS 86 U/L (46-116); ALT (SGPT) 27 U/L (14-59); ANION GAP 10 (6-14); AST (SGOT) 16 U/L (15-37); BLOOD UREA NITROGEN 9 mg/dL (7-20); BUN/CREATININE RATIO 13 (6-20); CALCIUM 8.2 mg/dL (8.5-10.1); CARBON DIOXIDE 28 mmol/L (21-32); CHLORIDE 103 mmol/L (98-107); CREATININE 0.7 mg/dL (0.6-1.0); GFR 90.9; GLUCOSE 224 mg/dL (70-99); LIPASE 119 U/L (73-393); SODIUM 141 mmol/L (136-145); TOTAL BILIRUBIN 0.3 mg/dL (0.2-1.0); TOTAL PROTEIN 5.4 g/dL (6.4-8.2)
[2018-02-02 15:42] LABS: % EOS 1 % (0-5); % LYMPHS 34 % (24-48); % MONOS 3 % (0-10); % SEGS 62 % (35-66)
[2018-02-02 15:43] LABS: PLT ESTIMATE ADEQUATE (ADEQUATE)
[2018-02-02] MEDS: POTASSIUM CHLORIDE 20 MEQ/15 ML ORAL LIQUID. PO (16:02)
== END 2018-02-02 16:31 | disposition left against medical advice (07) ==
LOC: ER 12:28
DX: R10.10 Upper abdominal pain, unspecified (principal); E78.00 Pure hypercholesterolemia, unspecified; E11.65 Type 2 diabetes mellitus with hyperglycemia; E87.6 Hypokalemia; F20.9 Schizophrenia, unspecified; G40.909 Epilepsy, unspecified, not intractable, without status epilepticus; G89.29 Other chronic pain; I10 Essential (primary) hypertension; J44.9 Chronic obstructive pulmonary disease, unspecified; Z85.42 Personal history of malignant neoplasm of other parts of uterus; Z90.49 Acquired absence of other specified parts of digestive tract; Z90.710 Acquired absence of both cervix and uterus; Z90.721 Acquired absence of ovaries, unilateral; M32.9 Systemic lupus erythematosus, unspecified; F31.9 Bipolar disorder, unspecified; F12.10 Cannabis abuse, uncomplicated; I25.2 Old myocardial infarction; Z98.890 Other specified postprocedural states; Z88.5 Allergy status to narcotic agent; Z88.8 Allergy status to other drugs, medicaments and biological substances
CPT/HCPCS: 36415; 80053; 81001; 83690; 85007; 85025; 96374; 96375; 96376; 99284-25; J2405; J3010

== ENCOUNTER → 2018-02-02 | Outpatient (CLI) | payer OTHER ==
[~2018-02-02] MED LIST changes: +CONTRAST GIVEN MC; -LIDOCAINE 1% PF 2 ML VIAL. ID; -LIDOCAINE 2% 100 MG/5 ML SYRINGE.; -ONDANSETRON PF 4 MG/2 ML VIAL. IV; -PROCHLORPERAZINE 10 MG/2 ML VIAL. IV; -PROPOFOL 20 ML IV
[2018-02-02] MEDS: IOHEXOL 240 MG/ML 50ML VIAL. PO (10:30)
[2018-02-02] MEDS: IOHEXOL 300 MG/ML 100ML VIAL. IV (11:45)
== END | disposition home or self-care (01) ==
LOC: CT 10:26
DX: K43.2 Incisional hernia without obstruction or gangrene (principal)
CPT/HCPCS: 74177; Q9966; Q9967

== ENCOUNTER 2018-02-14 15:30 | Emergency (ER) | payer OTHER | END 2018-02-14 16:15 | disposition left against medical advice (07) | LOC: ER 15:30 | DX: R10.9 Unspecified abdominal pain (principal); Z88.5 Allergy status to narcotic agent; Z91.048 Other nonmedicinal substance allergy status; Z53.21 Procedure and treatment not carried out due to patient leaving prior to being seen by health care provider ==

== ENCOUNTER 2018-03-07 12:44 | Emergency (ER) | payer OTHER ==
[2018-03-07 13:55] LABS: ADD MAN DIFF? NO
[2018-03-07 13:59] LABS: BASO # 0.2 x10^3/uL (0.0-0.2); BASO % 1 % (0-3); EOS # 0.9 x10^3/uL (0.0-0.7); EOS % 7 % (0-3); HEMOGLOBIN 15.4 g/dL (12.0-15.5); LYMPH # 3.1 x10^3/uL (1.0-4.8); LYMPH % 24 % (24-48); MEAN CORPUSCULAR HEMOGLOBIN 29 pg (25-35); MEAN CORPUSCULAR HGB CONC 34 g/dL (31-37); MEAN CORPUSCULAR VOLUME 84 fL (79-100); MONO # 0.6 x10^3/uL (0.0-1.1); MONO % 5 % (0-9); NEUT # 8.4 x10^3uL (1.8-7.7); NEUT % 64 % (31-73); PLATELET COUNT 470 x10^3/uL (140-400); RED BLOOD COUNT 5.37 x10^6/uL (3.50-5.40); WHITE BLOOD COUNT 13.3 x10^3/uL (4.0-11.0)
[2018-03-07] MEDS: IOHEXOL 300 MG/ML 100ML VIAL. IV (14:00)
[2018-03-07] MEDS ORDERED: CONTRAST GIVEN MC (14:00)
[2018-03-07] MEDS: IOHEXOL 240 MG/ML 50ML VIAL. PO (14:00)
[2018-03-07] MEDS: fentaNYL PF VIAL 100 MCG/2 ML VIAL IV ×2 (14:01→14:59)
[2018-03-07] MEDS: IV NORMAL SALINE 1000ML BAG 1,000 ML IV (14:01)
[2018-03-07 14:06] LABS: ANION GAP 11 (6-14); BLOOD UREA NITROGEN 10 mg/dL (7-20); BUN/CREATININE RATIO 10 (6-20); CALCIUM 9.3 mg/dL (8.5-10.1); CARBON DIOXIDE 26 mmol/L (21-32); CHLORIDE 100 mmol/L (98-107); GFR 60.2; GLUCOSE 365 mg/dL (70-99); SODIUM 137 mmol/L (136-145)
[2018-03-07 14:12] LABS: ALBUMIN 3.2 g/dL (3.4-5.0); ALBUMIN/GLOBULIN RATIO 0.7 (1.0-1.7); ALK PHOS 125 U/L (46-116); ALT (SGPT) 17 U/L (14-59); AST (SGOT) 12 U/L (15-37); LIPASE 119 U/L (73-393); TOTAL BILIRUBIN 0.5 mg/dL (0.2-1.0); TOTAL PROTEIN 7.5 g/dL (6.4-8.2)
[2018-03-07] MEDS ORDERED: IOHEXOL 300 MG/ML 100ML VIAL. IV (14:30)
[2018-03-07] MEDS ORDERED: IOHEXOL 240 MG/ML 50ML VIAL. PO (14:30)
[2018-03-07 14:44] LABS: URINE HCG POC HCG NEGATIVE (Negative)
[2018-03-07 14:44] LABS: BILIRUBIN,URINE SMALL (NEG); CLARITY,URINE CLOUDY; COLOR,URINE AMBER; GLUCOSE,URINE >=1000 mg/dL (NEG); NITRITE,URINE NEGATIVE (NEG); PH,URINE 5.5; PROTEIN,URINE 30 mg/dL (NEG-TRACE)
[2018-03-07 14:52] LABS: BACTERIA,URINE MODERATE /HPF (0-FEW); HYALINE CASTS, URINE MANY /HPF; RBC,URINE 0 /HPF (0-2); SQUAMOUS EPITHELIAL CELL,UR MANY /LPF
== END 2018-03-07 17:09 | disposition home or self-care (01) ==
LOC: ER 12:44
DX: G89.18 Other acute postprocedural pain (principal); R10.13 Epigastric pain; R10.11 Right upper quadrant pain; E78.00 Pure hypercholesterolemia, unspecified; F20.9 Schizophrenia, unspecified; F31.9 Bipolar disorder, unspecified; J44.9 Chronic obstructive pulmonary disease, unspecified; M32.9 Systemic lupus erythematosus, unspecified; G43.909 Migraine, unspecified, not intractable, without status migrainosus; I10 Essential (primary) hypertension; F12.10 Cannabis abuse, uncomplicated; E11.9 Type 2 diabetes mellitus without complications; I25.2 Old myocardial infarction; Z85.42 Personal history of malignant neoplasm of other parts of uterus; Z85.3 Personal history of malignant neoplasm of breast; Z90.710 Acquired absence of both cervix and uterus; Z90.49 Acquired absence of other specified parts of digestive tract; Z98.890 Other specified postprocedural states; Z88.5 Allergy status to narcotic agent; Z88.8 Allergy status to other drugs, medicaments and biological substances
CPT/HCPCS: 36415; 74177; 80053; 81001; 81025; 83690; 85025; 87086; 96361; 96374; 96376; 99285-25; J3010; J7030; Q9966; Q9967

== ENCOUNTER 2018-03-14 03:28 | Emergency (ER) | payer OTHER ==
[2018-03-14 04:01] LABS: ADD MAN DIFF? NO
[2018-03-14 04:07] LABS: BASO # 0.1 x10^3/uL (0.0-0.2); BASO % 1 % (0-3); EOS % 8 % (0-3); HEMATOCRIT 40.2 % (36.0-47.0); HEMOGLOBIN 13.7 g/dL (12.0-15.5); LYMPH # 3.8 x10^3/uL (1.0-4.8); LYMPH % 31 % (24-48); MEAN CORPUSCULAR HEMOGLOBIN 28 pg (25-35); MEAN CORPUSCULAR HGB CONC 34 g/dL (31-37); MEAN CORPUSCULAR VOLUME 83 fL (79-100); MONO # 0.6 x10^3/uL (0.0-1.1); MONO % 5 % (0-9); NEUT # 6.8 x10^3uL (1.8-7.7); NEUT % 55 % (31-73); PLATELET COUNT 297 x10^3/uL (140-400); RED BLOOD COUNT 4.83 x10^6/uL (3.50-5.40); RED CELL DISTRIBUTION WIDTH 14.4 % (11.5-14.5); WHITE BLOOD COUNT 12.3 x10^3/uL (4.0-11.0)
[2018-03-14 04:13] LABS: ANION GAP 16 (6-14); BLOOD UREA NITROGEN 8 mg/dL (7-20); BUN/CREATININE RATIO 10 (6-20); CALCIUM 8.7 mg/dL (8.5-10.1); CARBON DIOXIDE 23 mmol/L (21-32); CHLORIDE 105 mmol/L (98-107); CREATININE 0.8 mg/dL (0.6-1.0); GFR 77.9; GLUCOSE 161 mg/dL (70-99); POTASSIUM 3.6 mmol/L (3.5-5.1); SODIUM 144 mmol/L (136-145)
[2018-03-14 04:18] LABS: ALBUMIN 3.4 g/dL (3.4-5.0); ALK PHOS 107 U/L (46-116); ALT (SGPT) 18 U/L (14-59); AST (SGOT) 16 U/L (15-37); LIPASE 112 U/L (73-393); TOTAL BILIRUBIN 0.4 mg/dL (0.2-1.0); TOTAL PROTEIN 6.8 g/dL (6.4-8.2)
[2018-03-14 04:20] LABS: BILIRUBIN,URINE NEGATIVE (NEG); CLARITY,URINE CLEAR; COLOR,URINE YELLOW; GLUCOSE,URINE NEGATIVE (NEG); NITRITE,URINE NEGATIVE (NEG); PH,URINE 5.5; PROTEIN,URINE NEGATIVE (NEG-TRACE); UROBILINOGEN,URINE 0.2 mg/dL (0.2 mg/dL)
[2018-03-14 04:21] LABS: URINE HCG POC HCG NEGATIVE (Negative)
[2018-03-14 04:30] LABS: TROPONINI < 0.017 ng/mL (0.000-0.055)
[2018-03-14] MEDS ORDERED: CONTRAST GIVEN MC (04:30)
[2018-03-14 04:35] LABS: BACTERIA,URINE FEW /HPF (0-FEW); RBC,URINE OCC /HPF (0-2); SQUAMOUS EPITHELIAL CELL,UR MOD /LPF
[2018-03-14] MEDS: IOHEXOL 300 MG/ML 100ML VIAL. IV (04:35)
[2018-03-14] MEDS: diphenhydrAMINE 50 MG/ML VIAL IVP (05:18)
== END 2018-03-14 06:17 | disposition home or self-care (01) ==
LOC: ER 03:28
DX: R07.89 Other chest pain (principal); E11.9 Type 2 diabetes mellitus without complications; F12.10 Cannabis abuse, uncomplicated; Z90.710 Acquired absence of both cervix and uterus; Z90.49 Acquired absence of other specified parts of digestive tract; Z85.3 Personal history of malignant neoplasm of breast
CPT/HCPCS: 36415; 71045; 71275; 80053; 81001; 81025; 83690; 84484; 85025; 87086; 93005; 96374; 99285; J1200; Q9967

== ENCOUNTER 2018-04-02 21:41 | Emergency (ER) | payer OTHER ==
[2018-04-02] MEDS: ONDANSETRON ODT 4 MG TAB.RAPDIS. PO (22:50)
[2018-04-02] MEDS: fentaNYL PF VIAL 100 MCG/2 ML VIAL IV (22:55)
[2018-04-02] MEDS ORDERED: ONDANSETRON ODT 4 MG TAB.RAPDIS. (22:56)
[2018-04-02] MEDS ORDERED: fentaNYL PF VIAL 100 MCG/2 ML VIAL (22:56)
[2018-04-02 22:58] LABS: ADD MAN DIFF? NO
[2018-04-02 23:00] LABS: BASO # 0.1 x10^3/uL (0.0-0.2); BASO % 1 % (0-3); EOS # 0.7 x10^3/uL (0.0-0.7); EOS % 5 % (0-3); HEMATOCRIT 38.4 % (36.0-47.0); HEMOGLOBIN 12.9 g/dL (12.0-15.5); LYMPH % 29 % (24-48); MEAN CORPUSCULAR HEMOGLOBIN 28 pg (25-35); MEAN CORPUSCULAR HGB CONC 34 g/dL (31-37); MEAN CORPUSCULAR VOLUME 83 fL (79-100); MONO # 0.7 x10^3/uL (0.0-1.1); MONO % 5 % (0-9); NEUT # 8.5 x10^3uL (1.8-7.7); NEUT % 61 % (31-73); PLATELET COUNT 496 x10^3/uL (140-400); RED BLOOD COUNT 4.66 x10^6/uL (3.50-5.40); RED CELL DISTRIBUTION WIDTH 14.3 % (11.5-14.5); WHITE BLOOD COUNT 13.9 x10^3/uL (4.0-11.0)
[2018-04-02 23:10] LABS: PROTHROMBIN TIME PATIENT 12.2 SEC (11.7-14.0)
[2018-04-02 23:11] LABS: PARTIAL THROMBOPLASTIN TIME 27 SEC (24-38)
[2018-04-02 23:12] LABS: AMPHETAMINE/METHAMPHETAMINE NEG (NEG); BARBITURATES NEG (NEG); BENZODIAZEPINES NEG (NEG); CANNABINOIDS POS (NEG); COCAINE NEG (NEG); ETHANOL, URINE NEG (NEG); METHADONE NEG (NEG); OPIATES NEG (NEG); PHENCYCLIDINE NEG (NEG)
[2018-04-02 23:16] LABS: NEG OBC SER NEG; POS OBC SER POS; PREG TEST PT QUAL NEGATIVE (NEG)
[2018-04-02 23:22] LABS: TROPONINI < 0.017 ng/mL (0.000-0.055)
[2018-04-02 23:42] LABS: VAL ACID 34 mcg/mL (50-100)
[2018-04-02 23:50] LABS: ANION GAP 14 (6-14); BLOOD UREA NITROGEN 6 mg/dL (7-20); CALCIUM 8.8 mg/dL (8.5-10.1); CARBON DIOXIDE 22 mmol/L (21-32); CHLORIDE 105 mmol/L (98-107); CREATININE 0.8 mg/dL (0.6-1.0); GFR 77.6; GLUCOSE 197 mg/dL (70-99); POTASSIUM 3.4 mmol/L (3.5-5.1); SODIUM 141 mmol/L (136-145)
[2018-04-02 23:53] LABS: BILIRUBIN,URINE SMALL (NEG); CLARITY,URINE CLOUDY; COLOR,URINE YELLOW; GLUCOSE,URINE NEGATIVE (NEG); NITRITE,URINE NEGATIVE (NEG); PROTEIN,URINE 30 mg/dL (NEG-TRACE)
[2018-04-03] LABS: AMORPHOUS SEDIMENT,UR PRESENT /HPF; BACTERIA,URINE MODERATE /HPF (0-FEW); RBC,URINE 0 /HPF (0-2); SQUAMOUS EPITHELIAL CELL,UR MOD /LPF
[2018-04-03] MEDS: DIVALPROEX DELAYED RELEASE 500 MG TABLET.DR. PO (00:30)
[2018-04-03] MEDS: oxyCODONE/APAP 10/325 1 TAB TABLET PO (00:30)
[2018-04-03] MEDS ORDERED: INSULIN REGULAR 100 UNIT/ML 3ML VIAL. SQ (05:00)
[2018-04-03] MEDS ORDERED: IV NORMAL SALINE 1000ML BAG 1,000 ML IV (05:00)
== END 2018-04-03 01:10 | disposition home or self-care (01) ==
LOC: ER 04-03 01:10
DX: R56.9 Unspecified convulsions (principal); R51 Headache; E11.9 Type 2 diabetes mellitus without complications; I10 Essential (primary) hypertension; M32.9 Systemic lupus erythematosus, unspecified; F12.10 Cannabis abuse, uncomplicated; Z90.49 Acquired absence of other specified parts of digestive tract; Z90.710 Acquired absence of both cervix and uterus; Z88.5 Allergy status to narcotic agent; Z88.8 Allergy status to other drugs, medicaments and biological substances; Z98.890 Other specified postprocedural states
CPT/HCPCS: 36415; 70450; 71045; 80048; 80164; 80307; 81001; 84484; 84703; 85025; 85610; 85730; 87086; 96374; 99285-25; J3010; Q0162

== ENCOUNTER → 2018-05-10 | Outpatient (CLI) | payer OTHER | END | disposition home or self-care (01) | LOC: ECHO 09:30 | DX: R07.9 Chest pain, unspecified (principal); E66.2 Morbid (severe) obesity with alveolar hypoventilation; I11.0 Hypertensive heart disease with heart failure; I50.9 Heart failure, unspecified; E78.00 Pure hypercholesterolemia, unspecified; G43.109 Migraine with aura, not intractable, without status migrainosus; E11.649 Type 2 diabetes mellitus with hypoglycemia without coma; J44.9 Chronic obstructive pulmonary disease, unspecified; F17.210 Nicotine dependence, cigarettes, uncomplicated; Z79.4 Long term (current) use of insulin; Z79.899 Other long term (current) drug therapy | CPT/HCPCS: 93306 ==

== ENCOUNTER → 2018-05-15 | Day surgery (SDC) | payer OTHER ==
[~2018-05-15] MED LIST changes: -CONTRAST GIVEN MC; +IV RINGERS,LACTATED 1000ML 1,000 ML IV; +LIDOCAINE 1% PF 2 ML VIAL. ID; +LIDOCAINE 2% PF Vial for OR 5 ML VIAL.; +ONDANSETRON PF 4 MG/2 ML VIAL. IV; +PROCHLORPERAZINE 10 MG/2 ML VIAL. IV; +PROPOFOL 20 ML IV; +fentaNYL PF VIAL 100 MCG/2 ML VIAL IV
== END ==
LOC: SURG 15:11
DX: K22.2 Esophageal obstruction (principal); K29.50 Unspecified chronic gastritis without bleeding; I11.0 Hypertensive heart disease with heart failure; I50.9 Heart failure, unspecified; E11.9 Type 2 diabetes mellitus without complications; M19.90 Unspecified osteoarthritis, unspecified site; F41.9 Anxiety disorder, unspecified; J44.9 Chronic obstructive pulmonary disease, unspecified; G47.30 Sleep apnea, unspecified; Z85.3 Personal history of malignant neoplasm of breast; Z88.5 Allergy status to narcotic agent; Z79.899 Other long term (current) drug therapy; Z90.710 Acquired absence of both cervix and uterus; Z90.49 Acquired absence of other specified parts of digestive tract; Z83.3 Family history of diabetes mellitus; Z88.8 Allergy status to other drugs, medicaments and biological substances; Z98.890 Other specified postprocedural states
CPT/HCPCS: 43235; J2001; J2704

== ENCOUNTER 2018-05-29 22:46 | Emergency (ER) | payer OTHER ==
[2018-05-29] MEDS: IV NORMAL SALINE 1000ML BAG 1,000 ML IV (23:53)
[2018-05-29] MEDS: METOCLOPRAMIDE 10 MG TABLET. PO (23:57)
[2018-05-29] MEDS: DEXAMETHASONE SOD PHOS 20 MG/5 ML VIAL. IV (23:59)
[2018-05-30] MEDS: KETOROLAC 30 MG/ML INJ. IV (00:02)
[2018-05-30] MEDS: diphenhydrAMINE 50 MG/ML VIAL IVP (00:03)
[2018-05-30] MEDS: ZIPRASIDONE IM 20 MG VIAL. IM (01:09)
== END 2018-05-30 01:48 | disposition home or self-care (01) ==
LOC: ER 05-30 01:48
DX: R51 Headache (principal); I10 Essential (primary) hypertension; E11.9 Type 2 diabetes mellitus without complications; I25.2 Old myocardial infarction; Z88.8 Allergy status to other drugs, medicaments and biological substances; Z88.5 Allergy status to narcotic agent
CPT/HCPCS: 96372; 96374; 96375; 99284-25; J1100; J1200; J1885; J3486; J7030; J8597

== ENCOUNTER 2018-06-06 11:47 | Emergency (ER) | payer OTHER | END 2018-06-06 13:09 | disposition home or self-care (01) | LOC: ER 11:47 | DX: S20.461A Insect bite (nonvenomous) of right back wall of thorax, initial encounter (principal); E11.9 Type 2 diabetes mellitus without complications; I10 Essential (primary) hypertension; I25.2 Old myocardial infarction; M32.9 Systemic lupus erythematosus, unspecified; Z88.5 Allergy status to narcotic agent; Z88.8 Allergy status to other drugs, medicaments and biological substances; W57.XXXA Bitten or stung by nonvenomous insect and other nonvenomous arthropods, initial encounter; Y93.89 Activity, other specified; Y99.8 Other external cause status; Y92.89 Other specified places as the place of occurrence of the external cause | CPT/HCPCS: 99283 ==

== ENCOUNTER 2018-06-18 07:47 | Outpatient (CLI) | payer OTHER ==
[2018-06-18] VITALS (10 sets, daily range): BP systolic 112–138; BP diastolic 65–88
[~2018-06-18] VITALS: Ht 162.6 cm; Wt 100.2 kg
[~2018-06-18 07:47] MED LIST changes: +ACET-704 PO; +ACET325T9 PO; +ALBU0.63 IH; +AMLO10TA2 PO; +AMOX1TAB11 PO; +ATOR20TA PO; +ATOR20TA58 PO; +AZIT250T6 PO; +Albuterol Sulfate NEB; +BENZ100C PO; +BUPR1PAT7 TD; +BUPR1PAT8 TP; +BUTA1TAB23 PO; +CELE-20 PO; +CELE200C PO; +CEPH-264 PO; +CEPH500C PO; +CETI10TA16 PO; +CLIN300C8 PO; +CLON0.5T11 PO; +CYCL10TA2 PO; +DIPH25CA3 PO; +DIPH25CA58 PO; +DIPH25TA26 PO; +DIVA250T PO; +DIVA500T17 PO; +DULA0.75 SQ; +ERGO500027 PO; +FLUC100T FT; +FLUO40CA2 PO; +FLUT12AE IH; +FLUT16SP NS; +FLUT1DIS3 IH; +FURO-69 PO; +GABA-586 PO; +GABA800T2 PO; +HYDR-2758 PO; +HYDR-963 PO; +HYDR-965 PO; +HYDR-971 PO; +ILOP6TAB2 PO; +INSU100C SQ; +INSU100I17 SQ; +INSU100V13 SQ; +INSU100V5 IJ; +IPRA15SP IH; +IPRA3AMP29 NEB; +IPRA4AER IH; -IV RINGERS,LACTATED 1000ML 1,000 ML IV; +Insulin Detemir SQ; +KETO15CR2 TP; +LANS30CA PO; -LIDOCAINE 1% PF 2 ML VIAL. ID; -LIDOCAINE 2% PF Vial for OR 5 ML VIAL.; +LISI20TA PO; +METF10003 PO; +METF500T5 PO; +METH4TAB2 PO; +METH750T2 PO; +METO-269 PO; +MONT10TA9 PO; +MORP15TA3 PO; +MUPI22OI2 TP; +NITR0.4T22 SL; +NITR100C62 PO; +NYST100054 PO; +OMEP20TA63 PO; +ONDA4TAB10 SL; +ONDA4TAB7 PO; -ONDANSETRON PF 4 MG/2 ML VIAL. IV; +OXYC-323 PO; +OXYC15TA PO; +OXYC5CAP PO; +OXYC5TAB95 PO; +POLY119P4 PO; +POLY17PO3 PO; +POLY255P PO; +POTA20TA4 PO; +PRAZ5CAP2 PO; +PRED-220 PO; +PRED50TA PO; +PROAIR HFA8.5 GM IH; +PROAIR HFA8.5 GM INH; -PROCHLORPERAZINE 10 MG/2 ML VIAL. IV; +PROM25SU32 RC; +PROM25TA10 PO; -PROPOFOL 20 ML IV; +QUET100T PO; +QUET300T PO; +QUET300T6 PO; +QUET400T PO; +QUIN1TAB17 PO; +RANI300C PO; +RANI300T PO; +SPIR50TA4 PO; +SUCR1TAB PO; +SULF1TAB24 PO; +Sulfamethoxazole/Trimethoprim PO; +TIOT18CA IH; +TOPI100T8 PO; +TRAZ150T49 PO; +TRIA10.8 NS; +TRIF5TAB PO; -fentaNYL PF VIAL 100 MCG/2 ML VIAL IV; +hydrocodone; +symbicort
[2018-06-18 08:28] LABS: HEMATOCRIT 39.4 % (36.0-47.0); HEMOGLOBIN 13.6 g/dL (12.0-15.5); RED BLOOD COUNT 4.99 x10^6/uL (3.50-5.40); RED CELL DISTRIBUTION WIDTH 16.1 % (11.5-14.5); WHITE BLOOD COUNT 10.8 x10^3/uL (4.0-11.0)
[2018-06-18] MEDS ORDERED: MIDAZOLAM HCL/PF 2 MG/2 ML VIAL. ONE ×2 (08:32→08:58)
[2018-06-18] MEDS ORDERED: fentaNYL PF VIAL 100 MCG/2 ML VIAL ONE ×2 (08:32→08:58)
[2018-06-18 08:39] LABS: CALCIUM 8.6 mg/dL (8.5-10.1); CREATININE 0.8 mg/dL (0.6-1.0); GFR 77.6; POTASSIUM 3.5 mmol/L (3.5-5.1)
[2018-06-18 08:41] LABS: PROTHROMBIN TIME PATIENT 12.2 SEC (11.7-14.0)
[2018-06-18] MEDS ORDERED: fentaNYL PF VIAL 100 MCG/2 ML VIAL IV ONE (08:45)
[2018-06-18] MEDS ORDERED: LIDOCAINE 1% PF 30 ML VIAL. INJ ONE (08:45)
[2018-06-18] MEDS ORDERED: IODIXANOL 320 MG/ML 100 ML VIAL. IART ONE (08:45)
[2018-06-18] MEDS ORDERED: VERAPAMIL 5 MG/2 ML VIAL. IART ONE (08:45)
[2018-06-18] MEDS ORDERED: HEPARIN for IV BOLUS 10,000 UNIT/10 ML VIAL. IART ONE (08:45)
[2018-06-18] MEDS ORDERED: NITROGLYCERIN 200 MCG/2 ML SYRINGE FOR CATH/VASC LAB. IART ONE (08:45)
[2018-06-18] MEDS ORDERED: MIDAZOLAM HCL/PF 2 MG/2 ML VIAL. IV ONE (08:45)
[2018-06-18] MEDS ORDERED: LIDOCAINE 1% PF 30 ML VIAL. ONE (08:53)
[2018-06-18] MEDS ORDERED: HEPARIN for IV BOLUS 10,000 UNIT/10 ML VIAL. ONE (08:53)
[2018-06-18] MEDS ORDERED: IODIXANOL 320 MG/ML 100 ML VIAL. ONE (08:53)
[2018-06-18] MEDS ORDERED: NITROGLYCERIN 200 MCG/2 ML SYRINGE FOR CATH/VASC LAB. ONE (08:54)
[2018-06-18] MEDS ORDERED: VERAPAMIL 5 MG/2 ML VIAL. ONE (08:54)
--- NOTE | 2018-06-18 09:21 | PDOC ---
MODERATE SEDATION ASSESSMENT RISKS/ALTERNATIVES Risks/Alternatives Risks and alternatives of this type of sedation and procedure discussed with: RISK/ALTERNATIVES: Patient H & P ON CHART H & P H & P on chart and reviewed for co-morbid conditions and appropriate labs. H&P ON CHART: Yes STATUS PREG STATUS ASSESSED: N/A MEDS/ALLERGIES REVIEWED Meds/Allergies Reviewed Medications and Allergies including time and route of recently administered narcotics and sedatives. MEDS/ALLERGIES REVIEWED: Yes ASA RATING ASA RATING: II AIRWAY ASSESSMENT Airway Assessment Airway patency, oral function limitations, presence of caps, crowns, dentures, partials, and ability to extend neck assessed. AIRWAY ASSESSMENT: Yes MALLAMPATI SCORE MALLAMPATI SCORE: II PRE-SEDATION ASSESSMENT PRE-SEDATION ASSESSMENT: Yes YUNIOR CASTILLO MD Jun 18, 2018 09:21
[2018-06-18] MEDS ORDERED: IV 1/2 NORMAL SALINE 1,000 ML IV SCH (09:22)
[2018-06-18] MEDS ORDERED: NITROGLYCERIN SUBLINGUAL 0.4 MG BOTTLE OF 25. SL PRN (09:30)
--- NOTE | 2018-06-18 09:34 | CARD ---
MR#: [id number] Date of Study: 06/18/2018 Ordering Physician: YUNIOR LUNDBERG Referring Physician: YUNIOR LUNDBERG Tech: RT Nano (R) APPROVED REPORT Technologist: RT Nano (R) Nurse: Marlys Mcdermott RN Procedure(s) performed: Left heart catheterization, selective coronary angiography and left ventricul ography via right transradial approach Moderate Sedation: 31 min INDICATION The indication(s) include : Chest pain and positive stress test. PROCEDURE NARRATIVE After explaining the risks, benefits and alternative options, informed consent was obtained from tyrone ent. Patient was brought to the cardiac Weatherization Installer and right wrist was prepped and draped in the usual fashion after confirming a positive modified Kian's test. Arterial access was obtained in the righ t radial artery and a 6 Palauan sheath was inserted. 6 Palauan Kevin catheter was used to perform dora ective angiography of the left and right coronary arteries. 6 Palauan pigtail catheter was used to pe rform left ventriculography. Patient tolerated the procedure well. Hemostasis was achieved using TR band. There were no immediate complications. The following findings were noted. FINDINGS 1. Hemodynamics: Left ventricular end-diastolic pressure of 13 mmHg. No pullback gradient across th e aortic valve. 2. Left ventriculography: Normal left ventricle systolic function with ejection fraction estimated at 60%. No significant mitral regurgitation seen. 3. Coronary angiography: a. The left main coronary artery arose from the left sinus of Valsalva, gave rise to the left anteri or descending and left circumflex arteries and did not show any significant stenosis. b. The left anterior descending artery did not show any significant stenosis. c. The left circumflex artery did not show any significant stenosis. d. The right coronary artery was a large and dominant vessel arising from the right sinus of Valsalv a that did not show any significant stenosis. Conclusion 1. No significant coronary artery disease 2. Normal left ventricle systolic function with ejection fraction estimated at 60%. Recommendations Cardiac Risk Reduction Program Signed by : Yunior Lundberg, Electronically Approved : 06/18/2018 09:33:29
== END 2018-06-18 12:11 ==
LOC: CCL 07:47
PROVIDERS: ATTEND Internal Medicine Cardiovascular Disease
DX: R94.39 Abnormal result of other cardiovascular function study (principal); Z98.890 Other specified postprocedural states; G40.909 Epilepsy, unspecified, not intractable, without status epilepticus; G47.30 Sleep apnea, unspecified; M19.90 Unspecified osteoarthritis, unspecified site; I25.10 Atherosclerotic heart disease of native coronary artery without angina pectoris; K21.9 Gastro-esophageal reflux disease without esophagitis; G43.109 Migraine with aura, not intractable, without status migrainosus; F32.9 Major depressive disorder, single episode, unspecified; F12.90 Cannabis use, unspecified, uncomplicated; I25.2 Old myocardial infarction; F20.9 Schizophrenia, unspecified; M32.9 Systemic lupus erythematosus, unspecified; E11.9 Type 2 diabetes mellitus without complications; F41.9 Anxiety disorder, unspecified; J44.9 Chronic obstructive pulmonary disease, unspecified; I11.0 Hypertensive heart disease with heart failure; I50.9 Heart failure, unspecified; E66.2 Morbid (severe) obesity with alveolar hypoventilation; Z68.37 Body mass index [BMI] 37.0-37.9, adult; Z88.5 Allergy status to narcotic agent; Z88.8 Allergy status to other drugs, medicaments and biological substances; Z90.710 Acquired absence of both cervix and uterus; Z90.49 Acquired absence of other specified parts of digestive tract; Z79.01 Long term (current) use of anticoagulants; Z79.4 Long term (current) use of insulin; Z79.899 Other long term (current) drug therapy; Z85.830 Personal history of malignant neoplasm of bone; Z85.42 Personal history of malignant neoplasm of other parts of uterus; Z82.49 Family history of ischemic heart disease and other diseases of the circulatory system; Z84.89 Family history of other specified conditions; Z83.3 Family history of diabetes mellitus
CPT/HCPCS: 36415; 80048; 85027; 85610; 93458; 99152; 99153; C1769; C1892; J1644; J2250; J3010; J3490

== ENCOUNTER → 2018-07-26 | Outpatient (CLI) | payer OTHER ==
[2018-06-18 10:45] VITALS: BP 125/80
[~2018-07-26] MED LIST changes: -AMLO10TA2 PO; +AMLO10TA6 PO; -METF10003 PO; +METF10007 PO; +METF500T16 PO; -METF500T5 PO
--- NOTE | 2018-07-26 08:38 | RAD ---
Examination: ABDOMEN LTD History: f/u abd wall seroma Comparison/Correlation: 05/07/2018 Limited abdominal ultrasound exam Findings: Limited abdominal ultrasound exam was performed. At the mid abdominal level, there is a complex collection within the abdominal wall measuring 13.2 cm x 12.9 cm x 11.5 cm. This is a relatively well demarcated, cystic, multiseptated process. No flow identified on color Doppler imaging. Impression: Mild decrease in midabdominal wall complex collection which may represent a seroma. Electronically signed by: Flo Hsu MD (07/26/2018 8:35 AM) [facility]
== END | disposition home or self-care (01) ==
LOC: US 06:48
PROVIDERS: ATTEND Surgery
DX: Z09 Encounter for follow-up examination after completed treatment for conditions other than malignant neoplasm (principal); L76.34 Postprocedural seroma of skin and subcutaneous tissue following other procedure
CPT/HCPCS: 76705

== ENCOUNTER 2018-07-27 10:10 | Outpatient (CLI) | payer OTHER ==
[~2018-07-27] VITALS: Ht 162.6 cm; Wt 87.1 kg
[2018-07-27 10:32] VITALS: BP 151/92
[2018-07-27 10:42] LABS: BASO # 0.1 x10^3/uL (0.0-0.2); BASO % 1 % (0-3); EOS # 0.4 x10^3/uL (0.0-0.7); EOS % 4 % (0-3); HEMATOCRIT 38.5 % (36.0-47.0); HEMOGLOBIN 12.9 g/dL (12.0-15.5); LYMPH # 2.6 x10^3/uL (1.0-4.8); LYMPH % 23 % (24-48); MEAN CORPUSCULAR HEMOGLOBIN 27 pg (25-35); MEAN CORPUSCULAR HGB CONC 34 g/dL (31-37); MEAN CORPUSCULAR VOLUME 79 fL (79-100); MONO # 0.5 x10^3/uL (0.0-1.1); MONO % 4 % (0-9); NEUT # 7.9 x10^3uL (1.8-7.7); NEUT % 69 % (31-73); PLATELET COUNT 334 x10^3/uL (140-400); RED BLOOD COUNT 4.88 x10^6/uL (3.50-5.40); RED CELL DISTRIBUTION WIDTH 16.4 % (11.5-14.5); WHITE BLOOD COUNT 11.5 x10^3/uL (4.0-11.0)
[2018-07-27 10:56] LABS: PROTHROMBIN TIME PATIENT 12.4 SEC (11.7-14.0)
[2018-07-27] MEDS ORDERED: LIDOCAINE WITH 8.4% SOD BICARB 3 ML DISP.SYRIN. ONE (11:25)
[2018-07-27 11:46] VITALS: BP 154/105
[2018-07-27 12:00] VITALS: BP 154/104
[2018-07-27] MEDS ORDERED: LIDOCAINE WITH 8.4% SOD BICARB 3 ML DISP.SYRIN. IJ ONE (12:00)
[2018-07-27 12:16] VITALS: BP 167/87
[2018-07-27 12:34] VITALS: BP 149/97
--- NOTE | 2018-07-30 14:27 | RAD ---
Ultrasound-guided aspiration of a complex subcutaneous anterior abdominal fluid collection9.28.18 Discussion: The risks and benefits of the procedure were discussed the patient. Informed consent was obtained. A timeout procedure was performed. Ultrasound evaluation demonstrates a grossly similar appearance of a complex, multiloculated collection in the subcutaneous tissues of the anterior abdominal wall. 1% lidocaine was administered for local anesthesia. Under direct ultrasound guidance a 5 Arabic Yueh needle was advanced to the collection. A guidewire was advanced into the collection. Ultimately an 8 Arabic drain was placed. 300 cc of chronic hematoma was aspirated. This significantly decreased but not completely eliminate the underlying collection. Drain was removed and manual pressure held to achieve hemostasis. Sterile dressings were applied. No immediate complications were identified. Impression: Ultrasound-guided aspiration of anterior abdominal wall fluid collection as described.
== END 2018-07-27 13:05 | disposition home or self-care (01) ==
LOC: INTRAD 10:10
PROVIDERS: ATTEND Surgery
DX: L76.32 Postprocedural hematoma of skin and subcutaneous tissue following other procedure (principal); Y83.8 Other surgical procedures as the cause of abnormal reaction of the patient, or of later complication, without mention of misadventure at the time of the procedure; Z79.01 Long term (current) use of anticoagulants; Z88.5 Allergy status to narcotic agent; Z91.048 Other nonmedicinal substance allergy status
CPT/HCPCS: 10160; 36415; 76942; 85025; 85610; 87071; 87075; C1729; C1769; C1892; C1894

== ENCOUNTER 2018-08-26 20:44 | Inpatient (IN) | payer OTHER ==
[~2018-08-26] VITALS: Ht 162.6 cm; Wt 95.4 kg
[2018-08-26] MEDS ORDERED: AMMONIA AROMATIC 15% INHALANT AMPUL. ONE (21:03)
[2018-08-26 21:12] LABS: BILIRUBIN,URINE SMALL (NEG); CLARITY,URINE CLEAR; COLOR,URINE AMBER; NITRITE,URINE NEGATIVE (NEG); PH,URINE 5.5; PROTEIN,URINE 100 mg/dL (NEG-TRACE)
[2018-08-26 21:19] LABS: CREATININE ISTAT 0.9 mg/dL (0.5-1.4); HEMOGLOBIN ISTAT 13.9 g/dL (12-15); ION CA ISTAT 1.02 mmol/L (1.13-1.32); POTASSIUM ISTAT 4.7 mmol/L (3.5-5.0)
[2018-08-26 21:24] LABS: BACTERIA,URINE 0 /HPF (0-FEW); HYALINE CASTS, URINE FEW /HPF; RBC,URINE OCC /HPF (0-2); SQUAMOUS EPITHELIAL CELL,UR FEW /LPF; WBC,URINE OCC /HPF (0-4)
[2018-08-26 21:28] LABS: BARBITURATES POS (NEG); BENZODIAZEPINES POS (NEG); CANNABINOIDS POS (NEG); COCAINE POS (NEG); METHADONE NEG (NEG); OPIATES NEG (NEG); PHENCYCLIDINE NEG (NEG)
[2018-08-26 21:29] LABS: AMPHETAMINE/METHAMPHETAMINE POS (NEG)
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
[2018-08-26 21:59] LABS: BASO % 0 % (0-3); EOS # 0.3 x10^3/uL (0.0-0.7); EOS % 3 % (0-3); HEMATOCRIT 39.1 % (36.0-47.0); HEMOGLOBIN 13.1 g/dL (12.0-15.5); LYMPH # 1.6 x10^3/uL (1.0-4.8); LYMPH % 15 % (24-48); MEAN CORPUSCULAR HEMOGLOBIN 27 pg (25-35); MEAN CORPUSCULAR HGB CONC 34 g/dL (31-37); MEAN CORPUSCULAR VOLUME 81 fL (79-100); MONO # 0.5 x10^3/uL (0.0-1.1); MONO % 5 % (0-9); NEUT # 8.1 x10^3uL (1.8-7.7); NEUT % 77 % (31-73); PLATELET COUNT 273 x10^3/uL (140-400); RED BLOOD COUNT 4.82 x10^6/uL (3.50-5.40); RED CELL DISTRIBUTION WIDTH 15.8 % (11.5-14.5); WHITE BLOOD COUNT 10.5 x10^3/uL (4.0-11.0)
[2018-08-26 22:06] LABS: CALCIUM 8.2 mg/dL (8.5-10.1); POTASSIUM 3.8 mmol/L (3.5-5.1)
[2018-08-26 22:12] LABS: ALBUMIN 2.8 g/dL (3.4-5.0); ALBUMIN/GLOBULIN RATIO 0.8 (1.0-1.7); MAGNESIUM 1.7 mg/dL (1.8-2.4); TOTAL BILIRUBIN 0.5 mg/dL (0.2-1.0); TOTAL PROTEIN 6.1 g/dL (6.4-8.2)
--- NOTE | 2018-08-26 22:32 | RAD ---
CT brain without contrast. HISTORY: Altered mental status CT scan of brain was done without contrast. There is no intracranial hemorrhage or subdural hematoma. Ventricles are normal in size. There is no mass or shift of the midline. Visualized sinuses are clear. There is mild fluid in the inferior mastoid air cells on the right similar to the prior study. IMPRESSION: 1. No intracranial hemorrhage or acute finding noted intracranially. 2. Slight fluid in the right mastoids air cells. PQRS Compliance Statement: One or more of the following individualized dose reduction techniques were utilized for this examination: 1. Automated exposure control 2. Adjustment of the mA and/or kV according to patient size 3. Use of iterative reconstruction technique Electronically signed by: Raymundo Brower MD (08/26/2018 10:29 PM) [facility]
[2018-08-27] VITALS (15 sets, daily range): BP systolic 78–126; BP diastolic 50–73
--- NOTE | 2018-08-27 01:21 | EKG ---
[facility] [address] [place] [address] Test Date: 2018-08-26 Test Time: 21:12:40 Pat Name: EDDY AYALA Department: Room: Gender: F Lens Silverer: : 1975 Requested By: BILL CHILDRESS Order Number: [id number] Reading MD: Measurements Intervals [place] Rate: 115 P: 66 SD: 108 QRS: 10 QRSD: 86 T: 58 QT: 360 QTc: 507 Interpretive Statements SINUS TACHYCARDIA LEFT ATRIAL ABNORMALITY NON SPECIFIC T ABNORMALITY ABNORMAL ECG No previous ECG available for comparison
--- NOTE | 2018-08-27 02:47 | RAD ---
PORTABLE CHEST 1V Clinical History: altered mental status Technique: AP view of the chest was obtained at 08/26/2018 11:08 PM. Comparison: None. Findings: The cardiomediastinal silhouette is normal. The pulmonary vasculature is normal. The lungs and pleural margins are clear. Impression: No evidence of an acute cardiopulmonary process. Electronically signed by: Lul Harden III, MD (08/27/2018 2:44 AM) [facility]
[2018-08-27] MEDS ORDERED: INFLUENZA VAX SCREEN BY RX. MC PRN (03:45)
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
[2018-08-27 12:18] LABS: BASE EXCESS ABG -2 mmol/L (-3-3); HCO3 ABG 24 mmol/L (21-28); PCO2 ABG 43 mmHg (35-46); PO2 ABG 76 mmHg (75-108); SAT O2 ABG 95 % (92-99)
[2018-08-27 12:19] LABS: FIO2 ABG 28
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
[2018-08-27] MEDS ORDERED: DIGOXIN IV 500 MCG/2 ML AMPUL. IV ONE (13:00)
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
[2018-08-27] MEDS: METOPROLOL TART IMMED RELEASE 25 MG TABLET. PO SCH ×2 (14:15→20:39)
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
[2018-08-27] MEDS ORDERED: METOPROLOL TARTRATE 5 MG/5 ML VIAL. IVP ONE (14:30)
[2018-08-27] MEDS ORDERED: MAGNESIUM SULFATE 2GM 50 ML IV ONE (15:00)
[2018-08-27] MEDS ORDERED: METOPROLOL TARTRATE 5 MG/5 ML VIAL. IVP PRN (18:15)
[2018-08-28] MEDS ORDERED: EXEN2PEN SQ (00:22)
[2018-08-28] MEDS ORDERED: METO50TA6 PO (00:22)
[2018-08-28] MEDS ORDERED: LACT10SO35 PO (00:22)
[2018-08-28] MEDS ORDERED: MONT10TA9 PO (00:22)
[2018-08-28] MEDS ORDERED: ATOR40TA59 PO ×2 (00:22)
[2018-08-28] MEDS ORDERED: HYDR25TA9 PO (00:22)
[2018-08-28] MEDS ORDERED: PANT40GR PO (00:22)
[2018-08-28] MEDS ORDERED: TRAZ-85 PO (00:22)
[2018-08-28] MEDS ORDERED: FEXO180T16 PO (00:22)
[2018-08-28] MEDS ORDERED: ALPR1TAB6 PO (00:22)
[2018-08-28] MEDS ORDERED: ZIPR40CA2 PO (00:22)
[2018-08-28] MEDS ORDERED: QUET400T4 PO (00:22)
[2018-08-28] MEDS ORDERED: SPIR50TA4 PO (00:22)
[2018-08-28] MEDS ORDERED: OXYC10TA PO (00:22)
[2018-08-28] MEDS ORDERED: DIVA-53 PO (00:22)
[2018-08-28] MEDS ORDERED: POTA10TA12 PO (00:22)
[2018-08-28] MEDS ORDERED: SUMA100T3 PO (00:22)
[2018-08-28] MEDS ORDERED: HYDR25TA PO (00:22)
[2018-08-28] MEDS ORDERED: FURO40TA4 PO (00:22)
[2018-08-28] MEDS ORDERED: TOPI100T8 PO (00:22)
[2018-08-28] MEDS ORDERED: GABA800T2 PO (00:22)
[2018-08-28 03:25] VITALS: BP 120/75
[2018-08-28 06:02] LABS: BASO % 0 % (0-3); EOS # 0.2 x10^3/uL (0.0-0.7); EOS % 2 % (0-3); HEMATOCRIT 40.7 % (36.0-47.0); HEMOGLOBIN 13.4 g/dL (12.0-15.5); LYMPH # 2.2 x10^3/uL (1.0-4.8); LYMPH % 19 % (24-48); MEAN CORPUSCULAR HEMOGLOBIN 27 pg (25-35); MEAN CORPUSCULAR HGB CONC 33 g/dL (31-37); MEAN CORPUSCULAR VOLUME 82 fL (79-100); MONO # 0.6 x10^3/uL (0.0-1.1); MONO % 5 % (0-9); NEUT # 8.4 x10^3uL (1.8-7.7); NEUT % 74 % (31-73); PLATELET COUNT 274 x10^3/uL (140-400); RED BLOOD COUNT 4.99 x10^6/uL (3.50-5.40); RED CELL DISTRIBUTION WIDTH 15.9 % (11.5-14.5); WHITE BLOOD COUNT 11.4 x10^3/uL (4.0-11.0)
[2018-08-28 06:29] LABS: CALCIUM 8.9 mg/dL (8.5-10.1); CREATININE 0.9 mg/dL (0.6-1.0); GFR 67.7; POTASSIUM 3.5 mmol/L (3.5-5.1)
[2018-08-28 06:31] LABS: CHOLESTEROL/HDL RATIO 6.8
[2018-08-28 07:00] VITALS: BP 112/90
[2018-08-28 08:50] VITALS: BP 140/90
[2018-08-28] MEDS: METOPROLOL TART IMMED RELEASE 25 MG TABLET. PO SCH (08:50)
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
[2018-08-28] MEDS ORDERED: traMADol 50 MG TABLET PO PRN (10:15)
[2018-08-28] MEDS ORDERED: OXYMETAZOLINE 0.05% NASAL SPRAY 30ML BOTTLE. NS SCH (10:30)
== END 2018-08-28 12:08 | disposition home or self-care (01) | DRG 913 ==
LOC: EEVIPCON 20:44 → ER 20:44 → 2 NORTH 08-27 00:42
PROVIDERS: ADMIT Internal Medicine; ATTEND Internal Medicine
DX: S09.90XA Unspecified injury of head, initial encounter (principal); G93.41 Metabolic encephalopathy; E11.42 Type 2 diabetes mellitus with diabetic polyneuropathy; M32.9 Systemic lupus erythematosus, unspecified; E83.42 Hypomagnesemia; I10 Essential (primary) hypertension; I25.2 Old myocardial infarction; F19.10 Other psychoactive substance abuse, uncomplicated; E78.5 Hyperlipidemia, unspecified; G43.909 Migraine, unspecified, not intractable, without status migrainosus; J44.9 Chronic obstructive pulmonary disease, unspecified; F31.9 Bipolar disorder, unspecified; F43.10 Post-traumatic stress disorder, unspecified; M79.7 Fibromyalgia; F41.9 Anxiety disorder, unspecified; K21.9 Gastro-esophageal reflux disease without esophagitis; F15.10 Other stimulant abuse, uncomplicated; F14.10 Cocaine abuse, uncomplicated; F12.10 Cannabis abuse, uncomplicated; F13.10 Sedative, hypnotic or anxiolytic abuse, uncomplicated; Y00.XXXA Assault by blunt object, initial encounter; Z90.710 Acquired absence of both cervix and uterus; Z85.3 Personal history of malignant neoplasm of breast; Z85.43 Personal history of malignant neoplasm of ovary; Z85.42 Personal history of malignant neoplasm of other parts of uterus; Z85.830 Personal history of malignant neoplasm of bone; Z98.891 History of uterine scar from previous surgery; Z90.49 Acquired absence of other specified parts of digestive tract; Z88.5 Allergy status to narcotic agent; Z91.048 Other nonmedicinal substance allergy status; Z82.49 Family history of ischemic heart disease and other diseases of the circulatory system; Z87.11 Personal history of peptic ulcer disease; Z90.12 Acquired absence of left breast and nipple; Z87.891 Personal history of nicotine dependence; Y93.89 Activity, other specified; Y92.89 Other specified places as the place of occurrence of the external cause; Y99.8 Other external cause status; Z90.721 Acquired absence of ovaries, unilateral
CPT/HCPCS: 36415; 36600; 70450; 71045; 72125; 80047; 80048; 80053; 80061; 80307; 81001; 82140; 82805; 82962; 83735; 84484; 85025; 85610; 93005; J1160; J3475; J3490; 99285-25; G0479

== ENCOUNTER 2018-09-02 01:36 | Emergency (ER) | payer OTHER ==
[~2018-09-02] VITALS: Ht 162.6 cm; Wt 95.3 kg
[~2018-09-02 01:36] MED LIST changes: +ALPR1TAB6 PO; +ATOR40TA59 PO; +DIVA-53 PO; +EXEN2PEN SQ; +FEXO180T16 PO; +FURO40TA4 PO; +HYDR25TA PO; +HYDR25TA9 PO; +LACT10SO35 PO; +METO50TA6 PO; +OXYC10TA PO; +PANT40GR PO; +POTA10TA12 PO; +QUET400T4 PO; +SUMA100T3 PO; +TRAZ-85 PO; +ZIPR40CA2 PO
[2018-09-02] MEDS ORDERED: LORazepam 1 MG TABLET PO ONE (02:00)
[2018-09-02 02:30] VITALS: BP 173/101
[2018-09-02] MEDS ORDERED: PRED50TA PO (02:35)
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
--- NOTE | 2018-09-02 05:10 | RAD ---
LUMBAR SPINE 2-3V Clinical Indication: back pain Comparison: CT abdomen and pelvis with contrast, March 07, 2018. Findings: 5 lumbar type vertebral bodies. Visualized pelvic bones intact. Mild bilateral arthropathy of the hips. Multiple phleboliths in the pelvis. Cholecystectomy. The vertebral body height and alignment are maintained in the lumbar spine. Disc space narrowing of L5/S1. Other disc spaces are maintained. There is minimal degenerative endplate spurring. No compression fracture. The mineralization is normal. IMPRESSION: No compression fracture or malalignment. Electronically signed by: Mathew Fang MD (09/02/2018 5:07 AM) [id number]
== END 2018-09-02 02:48 | disposition home or self-care (01) ==
LOC: ER 01:36
DX: M54.5 Low back pain (principal); M79.602 Pain in left arm; M79.601 Pain in right arm; R58 Hemorrhage, not elsewhere classified; I10 Essential (primary) hypertension; F31.9 Bipolar disorder, unspecified; E11.9 Type 2 diabetes mellitus without complications; I25.2 Old myocardial infarction; Z90.49 Acquired absence of other specified parts of digestive tract; Z90.710 Acquired absence of both cervix and uterus; Z90.89 Acquired absence of other organs; Z98.890 Other specified postprocedural states; Z88.8 Allergy status to other drugs, medicaments and biological substances; Z88.5 Allergy status to narcotic agent
CPT/HCPCS: 72100; 99284

== ENCOUNTER 2019-02-08 16:42 | Emergency (ER) | payer SELFPAY ==
[~2019-02-08] VITALS: Ht 162.6 cm; Wt 81.2 kg
[~2019-02-08 16:42] MED LIST changes: +ALBU2.5V8 IH; +ALBU2.5V8 INH; -AMLO10TA6 PO; +AMLO10TA8 PO; -GABA-586 PO; +GABA300C18 PO; -GABA800T2 PO; +GABA800T5 PO; +HYDR-2145 PO; -HYDR-2758 PO; +HYDR-2761 PO; +HYDR-3135 PO; +HYDR-3164 PO; +HYDR-3165 PO; -HYDR-963 PO; -HYDR-965 PO; -HYDR-971 PO; -HYDR25TA9 PO; -OXYC-323 PO; +OXYC1TAB15 PO; +OXYC5TAB4 PO; -OXYC5TAB95 PO; +POLY17PO28 PO; -POLY17PO3 PO; -POLY255P PO; +POLY255P11 PO; -PROAIR HFA8.5 GM IH; -PROAIR HFA8.5 GM INH; -QUET300T6 PO; +QUET300T7 PO; +TRAZ-118 PO; -TRAZ-85 PO
[2019-02-08] MEDS ORDERED: fentaNYL PF VIAL 100 MCG/2 ML VIAL IV ONE ×2 (17:15→21:00)
[2019-02-08] MEDS ORDERED: ONDANSETRON PF 4 MG/2 ML VIAL. IV ONE (17:15)
[2019-02-08] MEDS ORDERED: IV NORMAL SALINE 1000ML BAG 1,000 ML IV ONE (17:15)
[2019-02-08 17:49] LABS: BASO # 0.1 x10^3/uL (0.0-0.2); BASO % 1 % (0-3); EOS # 0.5 x10^3/uL (0.0-0.7); EOS % 5 % (0-3); HEMATOCRIT 42.3 % (36.0-47.0); LYMPH # 3.5 x10^3/uL (1.0-4.8); LYMPH % 35 % (24-48); MEAN CORPUSCULAR HEMOGLOBIN 28 pg (25-35); MEAN CORPUSCULAR HGB CONC 33 g/dL (31-37); MEAN CORPUSCULAR VOLUME 83 fL (79-100); MONO # 0.4 x10^3/uL (0.0-1.1); MONO % 4 % (0-9); NEUT # 5.4 x10^3uL (1.8-7.7); NEUT % 54 % (31-73); PLATELET COUNT 320 x10^3/uL (140-400); RED CELL DISTRIBUTION WIDTH 14.6 % (11.5-14.5); WHITE BLOOD COUNT 10.1 x10^3/uL (4.0-11.0)
[2019-02-08 18:10] LABS: BILIRUBIN,URINE SMALL (NEG); CLARITY,URINE CLOUDY; COLOR,URINE YELLOW; NITRITE,URINE NEGATIVE (NEG); PH,URINE 5.5; PROTEIN,URINE 30 mg/dL (NEG-TRACE)
[2019-02-08 18:24] LABS: AMPHETAMINE/METHAMPHETAMINE NEG (NEG); BARBITURATES NEG (NEG); BENZODIAZEPINES NEG (NEG); CANNABINOIDS POS (NEG); COCAINE NEG (NEG); METHADONE NEG (NEG); OPIATES NEG (NEG); PHENCYCLIDINE NEG (NEG)
[2019-02-08 18:32] LABS: BACTERIA,URINE FEW /HPF (0-FEW); RBC,URINE 0 /HPF (0-2); SQUAMOUS EPITHELIAL CELL,UR OCC /LPF
[2019-02-08 18:57] LABS: CALCIUM 8.8 mg/dL (8.5-10.1); CREATININE 0.7 mg/dL (0.6-1.0); GFR 109.5; POTASSIUM 3.2 mmol/L (3.5-5.1)
[2019-02-08 19:03] LABS: ALBUMIN 3.2 g/dL (3.4-5.0); TOTAL BILIRUBIN 0.4 mg/dL (0.2-1.0); TOTAL PROTEIN 6.4 g/dL (6.4-8.2)
--- NOTE | 2019-02-08 19:10 | PHYS DOC ---
Past Medical History Past Medical History: Bipolar, Diabetes-Type II, Hypertension, [place], Seizure, Other Additional Past Medical Histor: breast CA, ovarian/uterine CA, bone CA, spinal CA, Lupus, hernia (LILIAN HERNANDEZ APRN) Past Surgical History: Appendectomy, Cholecystectomy, , Hysterectomy, Tonsillectomy, Other Additional Past Surgical Histo: Bx lumpectomy,esphogeal dilation,hernia,ABD/ DRAIN TUBES MULTIPLE (LILIAN HERNANDEZ APRN) Additional Information: 0.5 PPD Alcohol Use: None Drug Use: Marijuana (LILIAN HERNANDEZ APRN) Adult General Chief Complaint Chief Complaint: VAGINAL BLEEDING [facility] HPI Patient is a 43 year old female with history of hypertension, bipolar, diabetes type 2, multiple abdominal surgeries for hernia repair with placement and removal drains, who presents to the ED today complaining of vaginal bleeding that began at 8:30 in the morning with nausea and diarrhea. Patient is also complaining of 10 out of 10 abdominal pain that began at 2 PM. Patient states she has history of hysterectomy and believes she should not be bleeding. She states the blood was noted when she wiped herself after voiding. She states she was at the [employer]planner shop down the street and decided to call EMS to bring her to [facility]. She states she is not supposed to be at [facility] because her doctor in [place] told her never to come to [facility]. She states she does not want to be here because the general surgeon "messed" her up. 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 She continues to talk about her pipe jeeper. She states she needs a pipe jeeper because the general surgeon messed up in the abdomen. Patient is on her phone as we speak texting or communicating with someone. (LILIAN HERNANDEZ APRN) Review of Systems Review of Systems Constitutional: Denies fever or chills [] Eyes: Denies change in visual acuity, redness, or eye pain [] HENT: Denies nasal congestion or sore throat [] Respiratory: Denies cough or shortness of breath [] Cardiovascular: No additional information not addressed in HPI [] GI: Reports abdominal pain, nausea, diarrhea, denies vomiting, reports vaginal bleeding : Denies dysuria or hematuria [] Musculoskeletal: Denies back pain or joint pain [] Integument: Denies rash or skin lesions [] Neurologic: Denies headache, focal weakness or sensory changes [] All other systems were reviewed and found to be within normal limits, except as documented in this note. (LILIAN HERNANDEZ APRN) Current Medications Current Medications Current Medications Medications (Trade) Dose Ordered Sig/Ophelia Start Time Stop Time Status Last Admin Dose Admin Fentanyl Citrate (Fentanyl 2ml Vial) 50 mcg 1X ONCE 02/08/19 21:00 02/08/19 21:01 DC 02/08/19 20:48 50 MCG Info (CONTRAST GIVEN -- Rx MONITORING) 1 each PRN DAILY PRN 02/08/19 19:30 02/08/19 22:39 DC Iohexol (Omnipaque 300 Mg/ml) 75 ml 1X ONCE 02/08/19 19:30 02/08/19 19:31 DC 02/08/19 19:32 75 ML Ondansetron HCl (Zofran) 4 mg 1X ONCE 02/08/19 17:15 02/08/19 17:22 DC 02/08/19 18:08 4 MG Potassium Chloride (Klor-Con) 40 meq 1X ONCE 02/08/19 19:15 02/08/19 19:16 DC 02/08/19 19:50 40 MEQ Sodium Chloride 1,000 ml @ 1,000 mls/hr 1X ONCE 02/08/19 17:15 02/08/19 18:14 DC 02/08/19 18:07 1,000 MLS/HR (EV CARRASQUILLO DO) Allergies Allergies Allergies Coded Allergies Type Severity Reaction Last Updated Verified adhesive Allergy Intermediate rash 05/15/18 Yes adhesive tape Allergy Intermediate Rash 05/15/18 Yes morphine Adverse Reaction Intermediate Itching 05/15/18 Yes (EV CARRASQUILLO DO) Physical Exam Physical Exam Constitutional: Well developed, well nourished, no acute distress, non-toxic appearance. [] HENT: Normocephalic, atraumatic, bilateral external ears normal, oropharynx moist, no oral exudates, nose normal. [] Eyes: PERRLA, EOMI, conjunctiva normal, no discharge. [] Neck: Normal range of motion, no tenderness, supple, no stridor. [] Cardiovascular:Heart rate regular rhythm, no murmur [] Lungs & Thorax: Bilateral breath sounds clear to auscultation [] Abdomen: Rounded abdomen with an old healed midline incision. Tenderness on palpation of the mid upper abdomen. Bowel sounds normal, soft, no right upper quadrant or right lower quadrant tenderness, negative Hung's sign, negative psoas sign, negative obturator sign, no guarding, no rebound pain or month no rebound tenderness, no masses, no pulsatile masses. [] Pelvic exam External pelvic appears normal cervix not visualized, no bleeding noted on pelvic exam, trace amount of white discharge in the vaginal vault. No adnexal tenderness, no CMT. Skin: Warm, dry, no erythema, no rash. [] Back: No tenderness, no CVA tenderness. [] Extremities: No tenderness, no cyanosis, no clubbing, ROM intact, no edema. [] Neurologic: Alert and oriented X 3, normal motor function, normal sensory function, no focal deficits noted. [] Psychologic: Affect normal, judgement normal, mood normal. [] (LILIAN HERNANDEZ APRN) Physical Exam Constitutional: Well developed, well nourished, no acute distress, non-toxic appearance. [] Abdomen: Soft, healed midline incision with some mild tenderness to palpation, No rebound tenderness or guarding, mild distention noted [] Neurologic: Alert and oriented X 3, no focal deficits noted. [] (EV CARRASQUILLO DO) Current Patient Data Vital Signs Vital Signs Date Time Temp Pulse Resp B/P (MAP) Pulse Ox O2 Delivery O2 Flow Rate FiO2 02/08/19 21:52 150/82 (104) 98 Room Air 02/08/19 21:22 88 02/08/19 20:48 18 02/08/19 16:51 97.7 97.7 (EV CARRASQUILLO DO) Lab Values Laboratory Tests Test 02/08/19 17:30 02/08/19 18:00 02/08/19 18:20 White Blood Count 10.1 x10^3/uL (4.0-11.0) Red Blood Count 5.10 x10^6/uL (3.50-5.40) Hemoglobin 14.0 g/dL (12.0-15.5) Hematocrit 42.3 % (36.0-47.0) Mean Corpuscular Volume 83 fL (79-100) Mean Corpuscular Hemoglobin 28 pg (25-35) Mean Corpuscular Hemoglobin Concent 33 g/dL (31-37) Red Cell Distribution Width 14.6 % (11.5-14.5) H Platelet Count 320 x10^3/uL (140-400) Neutrophils (%) (Auto) 54 % (31-73) Lymphocytes (%) (Auto) 35 % (24-48) Monocytes (%) (Auto) 4 % (0-9) Eosinophils (%) (Auto) 5 % (0-3) H Basophils (%) (Auto) 1 % (0-3) Neutrophils # (Auto) 5.4 x10^3uL (1.8-7.7) Lymphocytes # (Auto) 3.5 x10^3/uL (1.0-4.8) Monocytes # (Auto) 0.4 x10^3/uL (0.0-1.1) Eosinophils # (Auto) 0.5 x10^3/uL (0.0-0.7) Basophils # (Auto) 0.1 x10^3/uL (0.0-0.2) Lactic Acid Level 1.0 mmol/L (0.4-2.0) Urine Color Yellow Urine Clarity Cloudy Urine pH 5.5 Urine Specific [place] >=1.030 Urine Protein 30 mg/dL (NEG-TRACE) Urine Glucose (UA) Negative mg/dL (NEG) Urine Ketones (Stick) Trace mg/dL (NEG) Urine Blood Negative (NEG) Urine Nitrite Negative (NEG) Urine Bilirubin Small (NEG) Urine Urobilinogen Dipstick 1.0 mg/dL (0.2 mg/dL) Urine Leukocyte Esterase Small (NEG) Urine RBC 0 /HPF (0-2) Urine WBC 5-10 /HPF (0-4) Urine Squamous Epithelial Cells Occ /LPF Urine Bacteria Few /HPF (0-FEW) Urine Mucus Mod /LPF Urine Opiates Screen Neg (NEG) Urine Methadone Screen Neg (NEG) Urine Barbiturates Neg (NEG) Urine Phencyclidine Screen Neg (NEG) Urine Amphetamine/Methamphetamine Neg (NEG) Urine Benzodiazepines Screen Neg (NEG) Urine Cocaine Screen Neg (NEG) Urine Cannabinoids Screen Pos (NEG) Urine Ethyl Alcohol Neg (NEG) Sodium Level 143 mmol/L (136-145) Potassium Level 3.2 mmol/L (3.5-5.1) L Chloride Level 105 mmol/L (98-107) Carbon Dioxide Level 28 mmol/L (21-32) Anion Gap 10 (6-14) Blood Urea Nitrogen 10 mg/dL (7-20) Creatinine 0.7 mg/dL (0.6-1.0) Estimated GFR (Cockcroft-Gault) 109.5 BUN/Creatinine Ratio 14 (6-20) Glucose Level 130 mg/dL (70-99) H Calcium Level 8.8 mg/dL (8.5-10.1) Total Bilirubin 0.4 mg/dL (0.2-1.0) Aspartate Amino Transferase (AST) 11 U/L (15-37) L Alanine Aminotransferase (ALT) 15 U/L (14-59) Alkaline Phosphatase 90 U/L (46-116) Total Protein 6.4 g/dL (6.4-8.2) Albumin 3.2 g/dL (3.4-5.0) L Albumin/Globulin Ratio 1.0 (1.0-1.7) Lipase 98 U/L (73-393) Ethyl Alcohol Level < 10 mg/dL (0-10) Laboratory Tests 02/08/19 17:30 Laboratory Tests 02/08/19 18:20 Microbiology 02/08/19 Blood Culture - Final, Complete NO GROWTH AFTER 5 DAYS 02/08/19 Urine Culture - Final, Complete 02/08/19 Urine Culture Result 1 (AUNG) - Final, Complete (EV CARRASQUILLO DO) EKG EKG [] (LILIAN HERNANDEZ APRN) Radiology/Procedures Radiology/Procedures [] (LILIAN HERNANDEZ APRN) Radiology/Procedures PROCEDURE: CT ABD PELV W/ IV CONTRST ONLY INDICATION: abd pain. Vag bleeding hx hernia repair, OMNI 300, 75ml COMPARISON: February 2018 TECHNIQUE: Axial CT images obtained through the abdomen and pelvis with contrast. One or more of the following individualized dose reduction techniques were utilized for this examination: 1. Automated exposure control; 2. Adjustment of the mA and/or kV according to patient size; 3. Use of iterative reconstruction technique. FINDINGS: Abdominal aorta is not aneurysmal. Liver mildly prominent in size. No peripancreatic fluid collection. Spleen prominent in size. No left-sided hydronephrosis. Urinary bladder has minimal urine within it at time of exam. No right-sided hydronephrosis. Numerous calcifications the pelvis, could be phleboliths. Calcification suspected at left ovarian region. No periappendiceal inflammation. No dilated loops of bowel to suggest obstruction. At the subcutaneous soft tissues anterior abdominal wall there is a 117 x 27 mm structure identified with central low density. This is decreased from prior. Degenerative changes the spine with multilevel central canal and neural foraminal stenosis. IMPRESSION: 1. No evidence of bowel obstruction. 2. Interval decrease in previously identified fluid collection at the subcutaneous soft tissues at the anterior abdominal wall but some does persist. Portion this could be secondary to postoperative fibrosis as well. Please note that CT cannot differentiate sterile from infected fluid collections. A component of hematoma or debris in the area is also not excluded given that a portion of it appears higher than simple density Electronically signed by: Fidel Coughlin MD (02/08/2019 8:33 PM) [facility] (EV CARRASQUILLO DO) Course & Med Decision Making Course & Med Decision Making Pertinent Labs and Imaging studies reviewed. (See chart for details) This is a 43-year-old female patient presenting to the ED today complaining of vaginal bleeding, nausea and diarrhea that began this morning of abdominal pain since this afternoon. Please see history of present illness. Pelvic exam did not identify any bleeding. 20:[address] Carrasquillo. (LILIAN HERNANDEZ FENCE SETTER) Course & Med Decision Making 1999 Sign out received from Lilian for patient with vaginal bleeding, nausea and diarrhea. Labs reviewed. CT imaging pending. CT with findings of known seroma with interval decreased. Patient seen and evaluated by myself. Patient stable for discharge with outpatient follow-up with PCP/General surgeon. Discussed findings and plan with patient, who acknowledges understanding and agreement. (EV CARRASQUILLO DO) Dragon Disclaimer Dragon Disclaimer This electronic medical record was generated, in whole or in part, using a voice recognition dictation system. (LILIAN HERNANDEZ FENCE SETTER) Departure Departure Impression: Primary Impression: Abdominal pain Additional Impression: Seroma Disposition: 01 HOME, SELF-CARE Condition: STABLE Referrals: DERIAN TRINIDAD MD (PCP) Patient Instructions: Abdominal Pain (Nonspecific) Additional Instructions: Please follow up with your surgeons regarding Seroma. Scripts Promethazine Hcl (PROMETHAZINE HCL) 25 Mg Tablet 1 TAB PO PRN Q6HRS PRN for NAUSEA, #10 TAB Prov: EV CARRASQUILLO DO 02/08/19 Oxycodone Hcl (OXYCODONE HCL) 5 Mg Capsule 5 MG PO PRN Q6HRS PRN for PAIN, #8 TAB 0 Refills Prov: EV CARRASQUILLO DO 02/08/19 Attending Signature Attending Signature I have personally interviewed and examined the patient. All charts, labs, and imaging studies were reviewed. I agree with the PA/POWER HOUSE ENGINEER's findings, exam, and plan. (EV CARRASQUILLO DO) Problem Qualifiers Primary Impression: Abdominal pain Abdominal location: upper abdomen, unspecified Qualified Codes: R10.10 - Upper abdominal pain, unspecified MUTVIRGENLILIAN FENCE SETTER Feb 08, 2019 19:10 EV CARRASQUILLO DO Feb 08, 2019 20:41
[2019-02-08] MEDS ORDERED: POTASSIUM CHLORIDE 20 MEQ TABLET.ER. PO ONE (19:15)
[2019-02-08] MEDS ORDERED: CONTRAST GIVEN. MC PRN (19:30)
[2019-02-08] MEDS ORDERED: IOHEXOL 300 MG/ML 100ML VIAL. IV ONE (19:30)
--- NOTE | 2019-02-08 20:36 | RAD ---
INDICATION: abd pain. Vag bleeding hx hernia repair, OMNI 300, 75ml COMPARISON: February 2018 TECHNIQUE: Axial CT images obtained through the abdomen and pelvis with contrast. One or more of the following individualized dose reduction techniques were utilized for this examination: 1. Automated exposure control; 2. Adjustment of the mA and/or kV according to patient size; 3. Use of iterative reconstruction technique. FINDINGS: Abdominal aorta is not aneurysmal. Liver mildly prominent in size. No peripancreatic fluid collection. Spleen prominent in size. No left-sided hydronephrosis. Urinary bladder has minimal urine within it at time of exam. No right-sided hydronephrosis. Numerous calcifications the pelvis, could be phleboliths. Calcification suspected at left ovarian region. No periappendiceal inflammation. No dilated loops of bowel to suggest obstruction. At the subcutaneous soft tissues anterior abdominal wall there is a 117 x 27 mm structure identified with central low density. This is decreased from prior. Degenerative changes the spine with multilevel central canal and neural foraminal stenosis. IMPRESSION: 1. No evidence of bowel obstruction. 2. Interval decrease in previously identified fluid collection at the subcutaneous soft tissues at the anterior abdominal wall but some does persist. Portion this could be secondary to postoperative fibrosis as well. Please note that CT cannot differentiate sterile from infected fluid collections. A component of hematoma or debris in the area is also not excluded given that a portion of it appears higher than simple density Electronically signed by: Fidel Coughlin MD (02/08/2019 8:33 PM) [facility]
[2019-02-08 21:52] VITALS: BP 150/82
[2019-02-08] MEDS ORDERED: PROM25TA10 PO (22:12)
[2019-02-08] MEDS ORDERED: OXYC5CAP PO (22:12)
== END 2019-02-08 22:25 | disposition home or self-care (01) ==
LOC: ER 16:42
DX: K91.872 Postprocedural seroma of a digestive system organ or structure following a digestive system procedure (principal); R10.10 Upper abdominal pain, unspecified; R19.7 Diarrhea, unspecified; R11.0 Nausea; N93.9 Abnormal uterine and vaginal bleeding, unspecified; F31.9 Bipolar disorder, unspecified; E11.9 Type 2 diabetes mellitus without complications; I10 Essential (primary) hypertension; I25.2 Old myocardial infarction; F17.200 Nicotine dependence, unspecified, uncomplicated; Z90.89 Acquired absence of other organs; Z90.49 Acquired absence of other specified parts of digestive tract; Z98.890 Other specified postprocedural states; Z90.710 Acquired absence of both cervix and uterus; Z88.8 Allergy status to other drugs, medicaments and biological substances; Z88.5 Allergy status to narcotic agent
CPT/HCPCS: 36415; 74177; 80053; 80307; 81001; 83605; 83690; 85025; 87040; 87086; 96361; 96374; 96375; 96376; 99285; G0480; J2405; J3010; J7030; Q9967

== ENCOUNTER 2022-02-16 19:20 | Emergency (ER) | payer MEDICAID ==
[~2022-02-16] VITALS: Ht 162.6 cm; Wt 99.0 kg
[~2022-02-16 19:20] MED LIST changes: +AMLO-187 PO; -AMLO10TA8 PO; +CLIN-94 PO; -CLIN300C8 PO; +CLON-77 PO; -CLON0.5T11 PO; +CYCL10TA19 PO; -CYCL10TA2 PO; +DIPH25CA23 PO; -DIPH25CA3 PO; +FEXO-213 PO; -FEXO180T16 PO; +METH-562 PO; -METH750T2 PO; +MONT10TA49 PO; -MONT10TA9 PO; +MORP-15 PO; -MORP15TA3 PO; -OXYC15TA PO; +OXYC15TA3 PO; -POLY17PO28 PO; +POLY17PO52 PO; +POTA-121 PO; -POTA20TA4 PO; -QUET100T PO; +QUET100T2 PO; -QUET300T PO; +QUET300T2 PO; -QUET300T7 PO; +QUET300T89 PO; -QUET400T PO; +QUET400T2 PO; -QUIN1TAB17 PO; +QUIN1TAB26 PO
--- NOTE | 2022-02-16 19:54 | ED.ADGEN ---
Past Medical History Past Medical History: Bipolar, Diabetes-Type II, Hypertension, [place], Seizure, Other Additional Past Medical Histor: breast CA, ovarian/uterine CA, bone CA, spinal CA, Lupus, hernia Past Surgical History: Appendectomy, Cholecystectomy, , Hysterectomy, Tonsillectomy, Other Additional Past Surgical Histo: Bx lumpectomy,esphogeal dilation,hernia,ABD/DRAIN TUBES MULTIPLE Smoking Status: Current Every Day Smoker Alcohol Use: None Drug Use: Marijuana General Adult EDM: Chief Complaint: UPPER EXTREMITY PAIN HPI: HPI: Patient is a 46 year old female coming in for worsening right hand and wrist pain. Patient states that she had a boxer's fracture about 3 months ago. Patient states she over the splint for 1 day and took it off because she was having pain. Patient's primary care has been facilitating her seeing a hand surgeon to have rods placed. Patient states that she was not thinking about it and picked up a gallon jug of tea and went to close the trunk of her car when she felt a snap and increased pain and swelling. Incident happened at 1.5 hours prior to arrival. Review of Systems: Review of Systems: All other systems within normal limits except for as noted in the HPI Current Medications: Current Medications Medications (Trade) Dose Ordered Sig/Ophelia Start Time Stop Time Status Last Admin Dose Admin Acetaminophen/ Hydrocodone Bitart (Lortab 7.5/325) 1 tab 1X ONCE 02/16/22 20:00 02/16/22 20:01 DC 02/16/22 20:06 1 TAB Lorazepam (Ativan) 0.5 mg 1X ONCE 02/16/22 20:45 02/16/22 20:46 DC 02/16/22 20:45 0.5 MG Orphenadrine Citrate (Norflex) 60 mg 1X ONCE 02/16/22 22:00 02/16/22 22:01 DC 02/16/22 22:00 60 MG Potassium Chloride (Klor-Con) 40 meq 1X ONCE 02/16/22 23:30 02/16/22 23:31 DC Allergies: Allergies: Allergies Coded Allergies Type Severity Reaction Last Updated Verified adhesive Allergy Intermediate rash 05/15/18 Yes adhesive tape Allergy Intermediate Rash 05/15/18 Yes morphine Adverse Reaction Intermediate Itching 05/15/18 Yes Physical Exam: PE: Constitutional: Well developed, well nourished, no acute distress, non-toxic appearance. [] HENT: Normocephalic, atraumatic, bilateral external ears normal, nose normal. [] Eyes: PERRLA, conjunctiva normal, no discharge. [] Neck: No rigidity, supple, no stridor. [] Cardiovascular: Regular rate and rhythm, brisk cap refill [] Lungs & Thorax: Non labored symmetric respirations, no tachypnea or respiratory distress [] Abdomen: Soft, nondistended. Skin: Warm, dry, no erythema, no rash. [] Back: Unremarkable Extremities: No deformities, range of motion grossly intact, no lower extremity edema. Right upper extremity: Swelling and tenderness of right hand and right [] Neurologic: Alert and oriented X 3, no focal deficits noted. [] Psychologic: Affect normal, judgement normal, mood normal. [] Current Patient Data: Labs: Laboratory Tests Test 02/16/22 22:18 White Blood Count 9.1 x10^3/uL (4.0-11.0) Red Blood Count 4.73 x10^6/uL (3.50-5.40) Hemoglobin 13.6 g/dL (12.0-15.5) Hematocrit 39.9 % (36.0-47.0) Mean Corpuscular Volume 84 fL (79-100) Mean Corpuscular Hemoglobin 29 pg (25-35) Mean Corpuscular Hemoglobin Concent 34 g/dL (31-37) Red Cell Distribution Width 13.5 % (11.5-14.5) Platelet Count 269 x10^3/uL (140-400) Neutrophils (%) (Auto) 49 % (31-73) Lymphocytes (%) (Auto) 39 % (24-48) Monocytes (%) (Auto) 4 % (0-9) Eosinophils (%) (Auto) 7 % (0-3) H Basophils (%) (Auto) 1 % (0-3) Neutrophils # (Auto) 4.5 x10^3/uL (1.8-7.7) Lymphocytes # (Auto) 3.5 x10^3/uL (1.0-4.8) Monocytes # (Auto) 0.4 x10^3/uL (0.0-1.1) Eosinophils # (Auto) 0.6 x10^3/uL (0.0-0.7) Basophils # (Auto) 0.1 x10^3/uL (0.0-0.2) Sodium Level 141 mmol/L (136-145) Potassium Level 3.2 mmol/L (3.5-5.1) L Chloride Level 106 mmol/L (98-107) Carbon Dioxide Level 27 mmol/L (21-32) Anion Gap 8 (6-14) Blood Urea Nitrogen 10 mg/dL (7-20) Creatinine 0.9 mg/dL (0.6-1.0) Estimated GFR (Cockcroft-Gault) 80.9 BUN/Creatinine Ratio 11 (6-20) Glucose Level 123 mg/dL (70-99) H Calcium Level 9.0 mg/dL (8.5-10.1) Phosphorus Level 4.6 mg/dL (2.6-4.7) Magnesium Level 1.9 mg/dL (1.8-2.4) Total Bilirubin 0.4 mg/dL (0.2-1.0) Aspartate Amino Transferase (AST) 12 U/L (15-37) L Alanine Aminotransferase (ALT) 14 U/L (14-59) Alkaline Phosphatase 90 U/L (46-116) Creatine Kinase 156 U/L (26-192) Myoglobin 43 ng/mL (9-82) Total Protein 6.9 g/dL (6.4-8.2) Albumin 3.5 g/dL (3.4-5.0) Albumin/Globulin Ratio 1.0 (1.0-1.7) Laboratory Tests 02/16/22 22:18 Laboratory Tests 02/16/22 22:18 Vital Signs: Vital Signs Date Time Temp Pulse Resp B/P (MAP) Pulse Ox O2 Delivery O2 Flow Rate FiO2 02/16/22 20:06 18 99 02/16/22 19:33 98.2 112 139/78 (98) Room Air 98.2 EKG: EKG: [] Heart Score: C/O Chest Pain: No Risk Factors: Risk Factors: DM, Current or recent (<one month) smoker, HTN, HLP, family history of CAD, obesity. Risk Scores: Score 0 - 3: 2.5% MACE over next 6 weeks - Discharge Home Score 4 - 6: 20.3% MACE over next 6 weeks - Admit for Clinical Observation Score 7 - 10: 72.7% MACE over next 6 weeks - Early Invasive Strategies Radiology/Procedures: Radiology/Procedures: [facility] [address] [place] [address] IMAGING REPORT Signed PATIENT: EDDY AYALACOUNT: [id number] : 1975 LOCATION: ER AGE: 46 SEX: F EXAM STATUS: REG ER ORD. PHYSICIAN: MARINA LEDESMA MD REASON: injury, prev boxer fx PROCEDURE: HAND RIGHT 3V Right forearm x-rays 2 views HISTORY: Right arm injury. Previous boxer's fracture. FINDINGS: No fracture. No dislocation. No bone lesion. Soft tissues are unremarkable. IMPRESSION: No acute osseous injury. Right wrist x-rays 3 views HISTORY: Injury, pain, prior boxer's fracture. FINDINGS: No fracture or dislocation of the radius, ulna, carpal bones or base of the metacarpals at the wrist. Soft tissues unremarkable. IMPRESSION: No acute osseous injury. Right hand x-rays 3 views HISTORY: Injury, prior boxer's fracture. FINDINGS: The fingers are flexed on all images this results in overlapping of the density of the bones of the phalanges limiting the ability to assess for injury of the fingers. There is a buckle fracture of the distal fifth metacarpal shaft there may be some bridging bone along the palmar cortex however there is nonhealed fracture along the medullary bone and the dorsal cortex suggesting that this is an acute fracture superimposed upon a chronic fracture versus a subacute healing fracture. No additional fractures of the hand evident. No dislocation. IMPRESSION: Traumatic fracture of the fifth metacarpal as described above. Electronically signed by: Claudia Coombs MD (02/16/2022 11:49 PM) [facility] DICTATED and SIGNED BY: CLAUDIA COOMBS MD DATE: 02/16/22 7600 [] Course & Med Decision Making: Course & Med Decision Making Patient placed in ulnar gutter splint. Patient already has follow-up with her primary care provider and hand surgery [place] Disclaimer: Mirtha Disclaimer: This electronic medical record was generated, in whole or in part, using a voice recognition dictation system. Departure Departure Impression: Primary Impression: Fracture of fifth metacarpal bone of right hand Disposition: HOME / SELF CARE / HOMELESS Condition: STABLE Referrals: DERIAN TRINIDAD MD (PCP) Patient Instructions: Splint Care, [id number] Additional Instructions: Call your primary care provider tomorrow to schedule follow-up with hand surgery . Leave splint in place. Take stool softeners and monitor for constipation while taking pain medications. Do not drive or operate heavy machinery when taking muscle relaxers or pain medications Scripts Hydrocodone Bit/Acetaminophen (HYDROCODONE-APAP 5-325 ) 1 Tab Tablet 1 TAB PO PRN Q6HRS PRN for PAIN, #12 TAB 0 Refills Prov: MARINA LEDESMA MD 02/17/22 Cyclobenzaprine Hcl (CYCLOBENZAPRINE HCL) 10 Mg Tablet 1 TAB PO TID PRN for MUSCLE SPASMS, #15 TAB Prov: MARINA LEDESMA MD 02/17/22 MARINA LEDESMA MD Feb 16, 2022 19:54
[2022-02-16] MEDS ORDERED: HYDROcodone/APAP 7.5/325MG 1 TAB TABLET PO ONE (20:00)
[2022-02-16] MEDS ORDERED: LORazepam 0.5 MG TABLET PO ONE ×2 (20:15→20:45)
[2022-02-16] MEDS ORDERED: ORPHENADRINE CITRATE 60 MG/2 ML VIAL. IM ONE (22:00)
[2022-02-16 22:37] LABS: BASO # 0.1 x10^3/uL (0.0-0.2); BASO % 1 % (0-3); EOS # 0.6 x10^3/uL (0.0-0.7); EOS % 7 % (0-3); HEMATOCRIT 39.9 % (36.0-47.0); HEMOGLOBIN 13.6 g/dL (12.0-15.5); LYMPH # 3.5 x10^3/uL (1.0-4.8); LYMPH % 39 % (24-48); MEAN CORPUSCULAR HEMOGLOBIN 29 pg (25-35); MEAN CORPUSCULAR HGB CONC 34 g/dL (31-37); MEAN CORPUSCULAR VOLUME 84 fL (79-100); MONO # 0.4 x10^3/uL (0.0-1.1); MONO % 4 % (0-9); NEUT # 4.5 x10^3/uL (1.8-7.7); NEUT % 49 % (31-73); PLATELET COUNT 269 x10^3/uL (140-400); RED BLOOD COUNT 4.73 x10^6/uL (3.50-5.40); RED CELL DISTRIBUTION WIDTH 13.5 % (11.5-14.5); WHITE BLOOD COUNT 9.1 x10^3/uL (4.0-11.0)
[2022-02-16 22:48] LABS: CREATININE 0.9 mg/dL (0.6-1.0); GFR 80.9; POTASSIUM 3.2 mmol/L (3.5-5.1)
[2022-02-16 23:02] LABS: ALBUMIN 3.5 g/dL (3.4-5.0); MAGNESIUM 1.9 mg/dL (1.8-2.4); PHOSPHORUS 4.6 mg/dL (2.6-4.7); TOTAL BILIRUBIN 0.4 mg/dL (0.2-1.0); TOTAL PROTEIN 6.9 g/dL (6.4-8.2)
[2022-02-16] MEDS ORDERED: POTASSIUM CHLORIDE 20 MEQ TABLET.ER. PO ONE (23:30)
--- NOTE | 2022-02-16 23:51 | RAD ---
Right forearm x-rays 2 views HISTORY: Right arm injury. Previous boxer's fracture. FINDINGS: No fracture. No dislocation. No bone lesion. Soft tissues are unremarkable. IMPRESSION: No acute osseous injury. Right wrist x-rays 3 views HISTORY: Injury, pain, prior boxer's fracture. FINDINGS: No fracture or dislocation of the radius, ulna, carpal bones or base of the metacarpals at the wrist. Soft tissues unremarkable. IMPRESSION: No acute osseous injury. Right hand x-rays 3 views HISTORY: Injury, prior boxer's fracture. FINDINGS: The fingers are flexed on all images this results in overlapping of the density of the bone s of the phalanges limiting the ability to assess for injury of the fingers. There is a buckle fractu re of the distal fifth metacarpal shaft there may be some bridging bone along the palmar cortex howev er there is nonhealed fracture along the medullary bone and the dorsal cortex suggesting that this is an acute fracture superimposed upon a chronic fracture versus a subacute healing fracture. No additi onal fractures of the hand evident. No dislocation. IMPRESSION: Traumatic fracture of the fifth metacarpal as described above. Electronically signed by: Riccardo Coombs MD (02/16/2022 11:49 PM) [facility]
[2022-02-17] MEDS ORDERED: CYCL10TA19 PO (00:58)
[2022-02-17] MEDS ORDERED: HYDR-2761 PO ×3 (00:58→01:02)
[2022-02-17 01:50] VITALS: BP 128/78
[2022-02-17] MEDS ORDERED: fentaNYL PF VIAL 100 MCG/2 ML VIAL IM ONE (02:00)
== END 2022-02-17 01:57 | disposition home or self-care (01) ==
LOC: ER 19:20
DX: S62.326A Displaced fracture of shaft of fifth metacarpal bone, right hand, initial encounter for closed fracture (principal); F31.9 Bipolar disorder, unspecified; E11.9 Type 2 diabetes mellitus without complications; I10 Essential (primary) hypertension; I25.2 Old myocardial infarction; F17.200 Nicotine dependence, unspecified, uncomplicated; Z88.5 Allergy status to narcotic agent; Z88.8 Allergy status to other drugs, medicaments and biological substances; X58.XXXA Exposure to other specified factors, initial encounter; Y93.89 Activity, other specified; Y92.89 Other specified places as the place of occurrence of the external cause; Y99.8 Other external cause status
CPT/HCPCS: 29125; 36415; 73090; 73110; 73130; 80053; 82550; 83735; 83874; 84100; 85025; 96372; 99284; A4565; J2360; J3010